=== PATIENT | female | born 1965 | race Caucasian/White ===

== ENCOUNTER 2020-05-05 16:27 | Outpatient (REF) | payer OTHER, SELFPAY ==
--- NOTE | 2020-05-05 16:32 | MM_ITS ---
EXAMINATION: MM SCREENING DIGITAL BREAST TOMOSYNTHESIS, BILATERAL CLINICAL INFORMATION: Screening. Asymptomatic. The lifetime risk of breast cancer based on the Tyrer-Cuzick Model is 9%. COMPARISON: Mammography: 11/26/2018, 10/17/2017, 10/15/2016 TECHNIQUE: Digital breast tomosynthesis is performed in both the craniocaudal and mediolateral oblique views along with computer-aided detection (CAD). Synthesized 2D images are generated from the tomosynthesis. FINDINGS: The breasts are heterogeneously dense, which may obscure small masses (ACR BI-RADS breast composition Category c). There are no significant masses, abnormal calcifications, or other abnormalities. Parenchymal pattern is similar to prior studies. The axilla and skin contours are unremarkable. MM/MM tomosynthesis screening BI IMPRESSION: No mammographic evidence of malignancy. ASSESSMENT: BI-RADS 1: Negative RECOMMENDATION: Routine annual mammography screening. This patient's information was entered into a reminder system with a target due date for their next mammogram.
== END 2020-05-05 16:28 | disposition home or self-care (01) ==
LOC: HO.MAMMO 16:27
PROVIDERS: PCP Internal Medicine; Visit Provider Internal Medicine
DX: Z12.31 Encounter for screening mammogram for malignant neoplasm of breast (principal)
CPT/HCPCS: 77063; 77067

== ENCOUNTER 2020-07-14 14:26 | Outpatient (REF) | payer OTHER, SELFPAY ==
[2020-07-14 15:14] LABS: Influenza A PCR NEGATIVE (Negative); Influenza B PCR NEGATIVE (Negative); Resp Syncy Virus RNA Qual PCR NEGATIVE (Negative); SARS COV2 PCR INHOUSE NEGATIVE (Negative)
== END 2020-07-14 14:27 | disposition home or self-care (01) ==
LOC: HO.LNP 14:26
PROVIDERS: Visit Provider Internal Medicine
DX: Z20.822 Contact with and (suspected) exposure to COVID-19 (principal)
CPT/HCPCS: 0241U

== ENCOUNTER 2020-12-11 06:41 | Outpatient (REF) | payer OTHER, SELFPAY ==
[2020-12-11 07:28] LABS: MANUAL DIFF FLAG NO
[2020-12-11 07:33] LABS: Eosinophils Absolute Auto 0.3 X10*3/uL (0.0-0.4); Eosinophils Percent Auto 8.5 % (0-4); Hematocrit 40.9 % (37-47); Hemoglobin 13.1 g/dl (12.0-16.0); Lymphocytes Absolute Auto 1.3 X10*3/uL (1.2-4.9); Lymphocytes Percent Auto 41.2 % (20-40); Mean Corpuscular Hemoglobin 30.2 pg (27.0-33.0); Mean Corpuscular Volume 94.2 fL (80-98); Mean Platelet Volume 10.2 fL (9.4-12.3); Monocytes Absolute Auto 0.3 X10*3/uL (0.1-1.2); Monocytes Percent Auto 9.5 % (2-11); Neutrophils Absolute Auto 1.2 X10*3/uL (2.0-8.3); Neutrophils Percent Auto 39.8 % (45-73); Platelet Count 212 X10*3/uL (160-400); Red Blood Count 4.34 X10*6/uL (4.20-5.50); Red Cell Distribution Width 12.2 % (11.0-16.0); White Blood Count 3.1 X10*3/uL (4.8-10.8)
[2020-12-11 07:59] LABS: Alanine Aminotransferase 17 U/L (0-31); Albumin Level 4.1 g/dL (3.5-5.0); Alkaline Phosphatase 41 U/L (39-117); Anion Gap 10 (12-20); Aspartate Amino Transferase 21 U/L (5-31); Bilirubin Total 0.5 mg/dL (0.0-1.0); Blood Urea Nitrogen 15 mg/dL (9-16); Calcium 9.3 mg/dL (8.4-10.2); Carbon Dioxide 29 mmol/L (22-29); Chloride 108 mmol/L (96-108); Cholesterol 199 mg/dL; Estimated Glomerular Filt Rate > 60; Glucose Fasting 97 mg/dL (60-99); HDL Cholesterol 76 mg/dL; LDL Cholesterol Calculated 113 mg/dl; Potassium 4.6 mmol/L (3.3-5.1); Sodium 142 mmol/L (135-145); Total Protein 6.5 g/dL (6.5-8.0); Triglycerides 54 mg/dL
== END 2020-12-11 06:42 | disposition home or self-care (01) ==
LOC: HO.LAB 06:41
PROVIDERS: PCP Internal Medicine; Visit Provider Internal Medicine
DX: Z00.00 Encounter for general adult medical examination without abnormal findings (principal)
CPT/HCPCS: 36415; 80053; 80061; 85025

== ENCOUNTER 2021-03-22 14:30 | Outpatient (REF) | payer OTHER, SELFPAY ==
[2021-03-22 15:39] LABS: Influenza A PCR NEGATIVE (Negative); Influenza B PCR NEGATIVE (Negative); Resp Syncy Virus RNA Qual PCR NEGATIVE (Negative); SARS COV2 PCR INHOUSE NEGATIVE (Negative)
== END 2021-03-22 14:31 | disposition home or self-care (01) ==
LOC: HO.LNP 14:30
PROVIDERS: Visit Provider Internal Medicine
DX: Z20.822 Contact with and (suspected) exposure to COVID-19 (principal)
CPT/HCPCS: 0241U

== ENCOUNTER 2021-04-28 08:26 | Outpatient (REF) | payer OTHER, SELFPAY | END 2021-04-28 08:27 | disposition home or self-care (01) | LOC: HO.HMGCLDS 08:26 | PROVIDERS: Visit Provider Internal Medicine | DX: Z20.822 Contact with and (suspected) exposure to COVID-19 (principal) | CPT/HCPCS: C9803; U0003; U0005 ==

== ENCOUNTER 2021-05-03 14:25 | Outpatient (REF) | payer OTHER, SELFPAY ==
[2021-05-03 15:13] LABS: Influenza A PCR NEGATIVE (Negative); Influenza B PCR NEGATIVE (Negative); Resp Syncy Virus RNA Qual PCR NEGATIVE (Negative); SARS COV2 PCR INHOUSE POSITIVE (Negative)
== END 2021-05-03 14:26 | disposition home or self-care (01) ==
LOC: HO.LNP 14:25
PROVIDERS: Visit Provider Physician Assistant
DX: Z20.822 Contact with and (suspected) exposure to COVID-19 (principal); B34.9 Viral infection, unspecified
CPT/HCPCS: 0241U

== ENCOUNTER 2021-05-12 10:42 | Outpatient (REF) | payer OTHER, SELFPAY ==
--- NOTE | ~2021-05-12 | XR_ITS ---
EXAMINATION: XR CHEST CLINICAL INFORMATION: Tightness, question pneumothorax COMPARISON: None TECHNIQUE: 2 views of the chest were obtained. FINDINGS: Normal cardiomediastinal silhouette. Pleural parenchymal scarring in the lung apices. No consolidation. No pneumothorax. No pleural effusion. No acute osseous abnormalities. XR/XR chest 2V IMPRESSION: No acute cardiopulmonary process.
--- NOTE | ~2021-05-12 | FL_ITS ---
EXAMINATION: XR FLUOROSCOPY UPPER GI WITH AIR CLINICAL INFORMATION: Gastroesophageal reflux disease COMPARISON: None TECHNIQUE: Upper GI was performed using thin and thick barium and effervescent granules FINDINGS: Esophageal motility is normal. No hernia is seen. There is severe gastroesophageal reflux. The stomach and duodenum are normal-appearing. No fold thickening, mass, ulcer or stricture is seen. FLUOROSCOPY TIME: 0.8 DOSE AREA PRODUCT: 3.4 garner per centimeter squared. 20 saved fluoroscopic images. FL/FL upper GI w air IMPRESSION: Severe gastroesophageal reflux.
== END 2021-05-12 10:43 | disposition home or self-care (01) ==
LOC: HO.XRAY 10:42
PROVIDERS: PCP Internal Medicine; Visit Provider Internal Medicine
DX: R07.89 Other chest pain (principal); K21.9 Gastro-esophageal reflux disease without esophagitis
CPT/HCPCS: 71046; 74246

== ENCOUNTER 2021-08-07 10:01 | Outpatient (REF) | payer OTHER, SELFPAY ==
--- NOTE | ~2021-08-07 | MM_ITS ---
EXAMINATION: MM SCREENING DIGITAL BREAST TOMOSYNTHESIS, BILATERAL CLINICAL INFORMATION: Screening. Asymptomatic. The lifetime risk of breast cancer based on the Tyrer-Cuzick Model is 7%. COMPARISON: Mammography: 05/05/2020, 11/26/2018, 10/17/2017 TECHNIQUE: Digital breast tomosynthesis is performed in both the craniocaudal and mediolateral oblique views along with computer-aided detection (CAD). Synthesized 2D images are generated from the tomosynthesis. FINDINGS: The breasts are heterogeneously dense, which may obscure small masses (ACR BI-RADS breast composition Category c). Breast tissue composition borders on average fibroglandular. There are no significant masses, abnormal calcifications, or other abnormalities. There is no developing density or architectural abnormality or interval changes. The skin contours are smooth. MM/MM tomosynthesis screening BI IMPRESSION: No mammographic evidence of malignancy. ASSESSMENT: BI-RADS 1: Negative RECOMMENDATION: Routine annual mammography screening. This patient's information was entered into a reminder system with a target due date for their next mammogram.
== END 2021-08-07 10:02 | disposition home or self-care (01) ==
LOC: HO.MAMMO 10:01
PROVIDERS: PCP Internal Medicine; Visit Provider Internal Medicine
DX: Z12.31 Encounter for screening mammogram for malignant neoplasm of breast (principal)
CPT/HCPCS: 77063; 77067

== ENCOUNTER 2021-09-23 13:00 | Outpatient (RCR) | payer OTHER, SELFPAY | END 2021-10-26 08:47 | disposition home or self-care (01) | LOC: HO.PTCHIC 13:00 | PROVIDERS: PCP Internal Medicine; Visit Provider Podiatrist | DX: M72.2 Plantar fascial fibromatosis (principal) | CPT/HCPCS: 97035; 97110; 97140; 97161 ==

== ENCOUNTER 2021-11-19 10:05 | Day surgery (SDC) | payer OTHER, SELFPAY ==
[2021-11-15 13:49] VITALS: BMI 25.9
--- NOTE | 2021-11-18 13:40 | HO.ANESPROP2 ---
Documented by User: Светлана Martinez NP 11/18/21 13:40 HPI - Anesthesia Eval Consult details Narrative: 56yo F for Upper Endoscopy [facility] Past Medical History Medical History (Updated 11/15/21 @ 13:45 by Harmony Headley RN) Depression Surgical History Surgical History (Updated 11/15/21 @ 13:45 by Harmony Headley RN) H/O colonoscopy Hx of tubal ligation Social History Social History (Updated 11/15/21 @ 13:45 by Harmony Headley RN) Patient Tobacco Use Status: Former Tobacco user Quit Date: >10 yrs ago Tobacco use type: Cigarette Are you DNR?: No Advance Directives: No Advance Directives Information Provided: Yes Meds Allergies Allergy/AdvReac Type Severity Reaction Status Date / Time No Known Allergies Allergy Verified 05/03/21 10:30 [No Known Allergies*] Home Medications Medication Instructions Recorded Confirmed Last Taken Type citalopram 20 mg tablet 1 tab PO DAILY 11/15/21 11/15/21 Unknown History omeprazole 20 mg capsule,delayed 20 mg PO DAILY 11/15/21 11/15/21 11/19/21 History release Vitamin D3 11/19/21 11/19/21 Unknown History loratadine 10 mg tablet (Claritin) PO 11/19/21 Unknown History Exam Exam Date and Time: November 18, 2021 1340 Height,Weight and Vital Signs: Height 5 ft 5.5 in Weight 71.668 kg Assessment and Plan Assessment Anesthesia Assessment: Chart Reviewed Documented by User: Chilo Cooper MD 11/19/21 12:07 HPI - Anesthesia Eval Consult details Narrative: 56yo F for Upper Endoscopy h/o Cardiomyopathy during . Current functional status greater than 4 METS [facility] Past Medical History Medical History (Updated 11/15/21 @ 13:45 by Harmony Headley RN) Depression Functional capacity: uses cane/walker Family History Family history of problems with anesthesia: No Surgical History Surgical History (Updated 11/15/21 @ 13:45 by Harmony Headley RN) H/O colonoscopy Hx of tubal ligation History of Problems with Anesthesia: No Social History Social History (Updated 11/15/21 @ 13:45 by Harmony Headley RN) Patient Tobacco Use Status: Former Tobacco user Quit Date: >10 yrs ago Tobacco use type: Cigarette Are you DNR?: No Advance Directives: No Advance Directives Information Provided: Yes Meds Allergies Allergy/AdvReac Type Severity Reaction Status Date / Time No Known Allergies Allergy Verified 05/03/21 10:30 [No Known Allergies*] Home Medications Medication Instructions Recorded Confirmed Last Taken Type citalopram 20 mg tablet 1 tab PO DAILY 11/15/21 11/15/21 Unknown History omeprazole 20 mg capsule,delayed 20 mg PO DAILY 11/15/21 11/15/21 11/19/21 History release Vitamin D3 11/19/21 11/19/21 Unknown History loratadine 10 mg tablet (Claritin) PO 11/19/21 Unknown History Exam Airway Mallampati Class: III TM Dist: >3cm Neck ROM: Full Loose/Missing/Broken Teeth: Yes (Chipped tooth front upper , bridge in place ) Heart: S1,S2 Lungs: b/l breath sounds Assessment and Plan Assessment Anesthesia Assessment: Anesthesia Plan Discussed Final Anesthetic Review Family History of Problems with Anesthesia: No History of Problems with Anesthesia: No NPO: Yes ASA Class: II Final Preanesthetic Review: Meds/Allgs Chart Reviewed, Consent Obtained/Reviewed and Anes Risks/Benef Reviewed Patient Risk: Intermediate Procedure Risk: Intermediate Anesthetic Plan Anesthetic Plan: MAC: Disposition: Standard PACU
[2021-11-19 10:14] VITALS: BP 108/69; PULSE 73; RESP 8; TEMP 36.1; O2SAT 97
[2021-11-19] MEDS: Lactated Ringers 1,000 ML 100 ML IVCONT (10:27)
--- NOTE | 2021-11-19 11:53 | PM.OP ---
Brief Operative Note Date of Service: 11/19/21 Pre-op diagnosis: GERD Post-op diagnosis: other (Hiatal hernia) Procedure: EGD with biopsies Surgeon: Ponce Fox Anesthesia: MAC Was an Anglesmith Helper used for this Procedure?: No Estimated blood loss (mL): 2.0 Pathology: other (A. EG Junction at 35cm) Condition: stable Disposition: PACU
[2021-11-19 11:55] VITALS: BP 99/57; PULSE 57; RESP 15; TEMP 36.3; O2SAT 98
[2021-11-19 12:10] VITALS: BP 114/60; PULSE 56; RESP 16; TEMP 36.3; O2SAT 97
--- NOTE | 2021-11-19 22:56 | OP_ITS ---
SURGEON: Ponce Fox MD INDICATIONS: The patient presents for evaluation of gastroesophageal reflux. Full consent obtained from her for this, including risks of bleeding and perforation. PREOPERATIVE DIAGNOSIS: POSTOPERATIVE DIAGNOSIS: Gastroesophageal reflux, hiatal hernia. PROCEDURE PERFORMED: Esophagogastroduodenoscopy with biopsies. ESTIMATED BLOOD LOSS: COMPLICATIONS: ANESTHESIA: Monitored anesthesia care. ASSISTANTS: SPECIMENS: PREOPERATIVE DIAGNOSES: Gastroesophageal reflux. DESCRIPTION OF PROCEDURE: The patient was placed in the left lateral decubitus position. The Olympus video gastroscope was passed in the posterior oropharynx and upper esophagus under direct vision. The scope was passed slowly to the distal esophagus. The gastroesophageal junction appeared at 35 cm. There was a very minimal irregularity, but no evidence of esophagitis nor any definitive evidence of Ko's mucosa. The scope entered the stomach. There was a small hiatal hernia. The scope was advanced to the pylorus and the duodenum was cannulated to the descending portion. The duodenum including the bulb appeared normal without mass or ulceration. Scope was withdrawn back in the stomach. The gastric antrum and body appeared normal with good peristalsis. Scope was retroflexed visualizing the proximal stomach carefully, which appeared normal, without mass or ulceration. The scope was straightened and withdrawn back in the esophagus. Biopsies were obtained at the EG junction at 35 cm. Proximal to this the esophageal mucosa appeared normal. The scope was withdrawn from the patient. She tolerated the procedure well and was returned to recovery area in stable condition. IMPRESSION: Hiatal hernia, gastroesophageal reflux. PLAN: The results of the biopsy will be checked. She will continue her current regimen of daily omeprazole as she does report that is working well for the reflux. If things are stable, she will see me on a p.r.n. basis and have a repeat screening colonoscopy in 2024. MD RADHA Mooney/PENG / [phone] MTDValerie
== END 2021-11-19 12:30 | disposition home or self-care (01) ==
PROVIDERS: PCP Internal Medicine; Visit Provider Internal Medicine
PROC: 0DJ08ZZ Inspection of Upper Intestinal Tract, Via Natural or Artificial Opening Endoscopic (ICD-10-PCS; CPT 43235; principal; 2021-11-19 11:20)
DX: K21.9 Gastro-esophageal reflux disease without esophagitis (principal); K44.9 Diaphragmatic hernia without obstruction or gangrene; F32.9 Major depressive disorder, single episode, unspecified; Z79.899 Other long term (current) drug therapy; Z98.51 Tubal ligation status
CPT/HCPCS: 43239; 88305; J3010

== ENCOUNTER 2022-01-05 06:50 | Outpatient (REF) | payer OTHER, SELFPAY ==
[2022-01-05 06:55] LABS: MANUAL DIFF FLAG NO
[2022-01-05 07:32] LABS: Basophils Percent Auto 0.9 % (0-2); Eosinophils Absolute Auto 0.2 X10*3/uL (0.0-0.4); Eosinophils Percent Auto 3.5 % (0-4); Hematocrit 39.7 % (37.0-47.0); Imm Gran Abs Auto 0.01 X10*3/uL (0.00-0.03); Imm Gran Pct Auto 0.2 % (0.0-0.4); Lymphocytes Absolute Auto 1.8 X10*3/uL (1.2-4.9); Lymphocytes Percent Auto 38.8 % (20-40); Mean Corpuscular HGB Conc 32.7 g/dl (31.0-35.0); Mean Corpuscular Hemoglobin 31.1 pg (27.0-33.0); Mean Platelet Volume 10.1 fL (9.4-12.3); Monocytes Absolute Auto 0.4 X10*3/uL (0.1-1.2); Monocytes Percent Auto 9.3 % (2-11); Neutrophils Absolute Auto 2.1 x10*3/uL (2.0-8.3); Neutrophils Percent Auto 47.3 % (45-73); Platelet Count 228 X10*3/uL (160-400); Red Blood Count 4.18 X10*6/uL (4.20-5.50); Red Cell Distribution Width 12.9 % (11.0-16.0); White Blood Count 4.5 X10*3/uL (4.8-10.8)
[2022-01-05 08:04] LABS: Alanine Aminotransferase 28 U/L (0-31); Albumin Level 4.1 g/dL (3.5-5.0); Alkaline Phosphatase 55 U/L (39-117); Anion Gap 15 (12-20); Aspartate Amino Transferase 39 U/L (5-31); Blood Urea Nitrogen 21 mg/dL (9-16); Calcium 9.3 mg/dL (8.4-10.2); Carbon Dioxide 26 mmol/L (22-29); Chloride 107 mmol/L (96-108); Cholesterol 192 mg/dL; Estimated Glomerular Filt Rate > 60; Glucose Fasting 107 mg/dL (60-99); HDL Cholesterol 70 mg/dL; LDL Cholesterol Calculated 104 mg/dl; Potassium 4.5 mmol/L (3.3-5.1); Sodium 143 mmol/L (135-145); Total Protein 6.7 g/dL (6.5-8.0); Triglycerides 93 mg/dL
[2022-01-05 08:15] LABS: Bilirubin Total 0.2 mg/dL (0.0-1.0)
== END 2022-01-05 06:51 | disposition home or self-care (01) ==
LOC: HO.LAB 06:50
PROVIDERS: PCP Internal Medicine; Visit Provider Internal Medicine
DX: Z00.00 Encounter for general adult medical examination without abnormal findings (principal)
CPT/HCPCS: 36415; 80053; 80061; 85025

== ENCOUNTER 2022-12-06 16:52 | Outpatient (REF) | payer OTHER, SELFPAY ==
--- NOTE | ~2022-12-06 | XR_ITS ---
Examination: Soft tissue neck and chest. CLINICAL INDICATION: Rule out epiglottitis. Chest pain. COMPARISON: Chest 05/12/2021 TECHNIQUE: 2 views soft tissue neck and 2 views chest. FINDINGS: Soft tissue neck: There is normal patency of oropharyngeal and laryngeal airway. No soft tissue mass or calcification seen except for calcification of thyroid cartilage. The prevertebral soft tissues are normal. No gross bony abnormality seen. CHEST: Both lungs are fairly well-expanded and clear. The heart size and pulmonary vascularity is normal. There is mild dextroscoliosis. No gross bony abnormality seen. XR/XR soft tissue neck IMPRESSION: 1. Unremarkable soft tissue neck exam except for calcification of thyroid cartilage. 2. Unremarkable chest exam. Mild dextroscoliosis of lower dorsal spine.
--- NOTE | ~2022-12-06 | XR_ITS ---
Examination: Soft tissue neck and chest. CLINICAL INDICATION: Rule out epiglottitis. Chest pain. COMPARISON: Chest 05/12/2021 TECHNIQUE: 2 views soft tissue neck and 2 views chest. FINDINGS: Soft tissue neck: There is normal patency of oropharyngeal and laryngeal airway. No soft tissue mass or calcification seen except for calcification of thyroid cartilage. The prevertebral soft tissues are normal. No gross bony abnormality seen. CHEST: Both lungs are fairly well-expanded and clear. The heart size and pulmonary vascularity is normal. There is mild dextroscoliosis. No gross bony abnormality seen. XR/XR chest 2V IMPRESSION: 1. Unremarkable soft tissue neck exam except for calcification of thyroid cartilage. 2. Unremarkable chest exam. Mild dextroscoliosis of lower dorsal spine.
[2022-12-06 17:01] LABS: MANUAL DIFF FLAG NO
[2022-12-06 18:00] LABS: Basophils Percent Auto 0.5 % (0-2); Eosinophils Absolute Auto 0.1 X10*3/uL (0.0-0.4); Eosinophils Percent Auto 2.2 % (0-4); Hematocrit 42.9 % (37.0-47.0); Hemoglobin 13.9 g/dl (12.0-16.0); Imm Gran Abs Auto 0.01 X10*3/uL (0.00-0.03); Imm Gran Pct Auto 0.2 % (0.0-0.4); Lymphocytes Absolute Auto 1.6 X10*3/uL (1.2-4.9); Mean Corpuscular HGB Conc 32.4 g/dl (31.0-35.0); Mean Corpuscular Hemoglobin 30.6 pg (27.0-33.0); Mean Corpuscular Volume 94.5 fL (80.0-98.0); Mean Platelet Volume 10.1 fL (9.4-12.3); Monocytes Absolute Auto 0.5 X10*3/uL (0.1-1.2); Monocytes Percent Auto 9.2 % (2-11); Neutrophils Absolute Auto 3.3 x10*3/uL (2.0-8.3); Neutrophils Percent Auto 59.9 % (45-73); Platelet Count 218 X10*3/uL (160-400); Red Blood Count 4.54 X10*6/uL (4.20-5.50); Red Cell Distribution Width 12.6 % (11.0-16.0); White Blood Count 5.6 X10*3/uL (4.8-10.8)
[2022-12-06 18:40] LABS: Alanine Aminotransferase 32 U/L (0-31); Albumin Level 4.4 g/dL (3.5-5.0); Alkaline Phosphatase 79 U/L (39-117); Anion Gap 12 (12-20); Aspartate Amino Transferase 26 U/L (5-31); Bilirubin Total 0.6 mg/dL (0.0-1.0); Blood Urea Nitrogen 11 mg/dL (9-16); C Reactive Protein 1.74 mg/dL (< or = 0.50); Calcium 9.8 mg/dL (8.4-10.2); Carbon Dioxide 28 mmol/L (22-29); Chloride 104 mmol/L (96-108); Estimated Glomerular Filt Rate > 60; Glucose Random 119 mg/dL (60-115); Sodium 140 mmol/L (135-145); Total Protein 7.7 g/dL (6.5-8.0)
== END 2022-12-06 16:53 | disposition home or self-care (01) ==
LOC: HO.LAB 16:52
PROVIDERS: PCP Internal Medicine; Visit Provider Internal Medicine
DX: R05.9 Cough, unspecified (principal); R49.0 Dysphonia; K21.9 Gastro-esophageal reflux disease without esophagitis
CPT/HCPCS: 36415; 70360; 71046; 80053; 85025; 86140

== ENCOUNTER → 2022-12-23 07:58 | Outpatient (REF) | payer OTHER, SELFPAY ==
--- NOTE | 2022-12-23 08:02 | CA_ITS ---
Acquisition Time: 2022-12-23 08:03:57 Total Exercise Time: 00:10:01 Test Indications: CP Medications: SEE H Protocol: MARILIN Max HR: 160 BPM 98% of Pred: 162 BPM Max BP: 154/072 mmHG Max Work Load: 11.7 METS PT EXERCISED ON STD MARILIN PROTOCOL FOR 10 MIN INTO STAGE 4. MAX HR 157-96%MAX. NO CP OR SOB. NO ISCHENMIC CHANGES. NML STRESS TEST Referred By: Cedric Cohen Overread By: BRIE COHEN MD
== END ==
LOC: HO.CARD 07:58
PROVIDERS: PCP Internal Medicine; Visit Provider Internal Medicine
DX: R07.9 Chest pain, unspecified (principal)
CPT/HCPCS: 93017

== ENCOUNTER 2023-01-06 09:23 | Outpatient (REF) | payer OTHER, SELFPAY ==
--- NOTE | ~2023-01-06 | US_ITS ---
EXAMINATION: US ABDOMEN COMPLETE CLINICAL INFORMATION: Epigastric pain. COMPARISON: None available. TECHNIQUE: Real-time imaging of the abdominal viscera. FINDINGS: PANCREAS: Normal. ABDOMINAL AORTA: The proximal, mid, and distal segments are normal in caliber. INFERIOR VENA CAVA: Visualized portions are normal. LIVER: The liver is normal in size. The liver contour is normal. There is very mild increase in liver parenchymal echogenicity, consistent with hepatic steatosis. No focal hepatic lesion. There is no intrahepatic biliary duct dilatation seen. GALLBLADDER: Normal. The gallbladder is physiologically distended without evidence of stones, sludge, polyps, wall thickening or pericholecystic fluid. COMMON BILE DUCT: Normal in caliber measuring 0.3 cm in diameter. RIGHT KIDNEY: Normal. No hydronephrosis. No renal calculi or focal parenchymal lesions. The kidney measures 10.3 cm in maximum dimension. LEFT KIDNEY: Normal. No hydronephrosis. No renal calculi or focal parenchymal lesions. The kidney measures 10.2 cm in maximum dimension. SPLEEN: Normal. The spleen measures 9.0 cm in maximum dimension. FREE FLUID: None. US/US abdomen complete IMPRESSION: 1. There is very mild increase in hepatic echotexture, consistent with fatty infiltration or hepatocellular disease. Please correlate clinically. No focal hepatic mass or intrahepatic biliary dilatation is seen. 2. Otherwise, unremarkable examination.
== END 2023-01-06 09:24 | disposition home or self-care (01) ==
LOC: HO.US 09:23
PROVIDERS: Visit Provider Internal Medicine
DX: R10.13 Epigastric pain (principal)
CPT/HCPCS: 76700

== ENCOUNTER 2023-03-20 15:34 | Outpatient (REF) | payer OTHER, SELFPAY ==
--- NOTE | ~2023-03-20 | XR_ITS ---
EXAMINATION: XR TIBIA AND FIBULA, RIGHT CLINICAL INFORMATION: Right tibia injury. COMPARISON: None available. TECHNIQUE: AP and lateral views of the right tibia and fibula were obtained. FINDINGS: Bony alignment and mineralization are normal. The lateral, medial and patellofemoral joint space compartments are well-maintained. There is a small peripheral osteophyte at the upper articular surface of the patella. The ankle mortise is intact. No fracture, dislocation or right knee and coronal joint effusion is seen. Boehler's angle is normal. There is a large plantar calcaneal spur. There are degenerative changes of the dorsal midfoot. No focal soft tissue swelling, gas or foreign body is seen. XR/XR tibia fibula RT 2V IMPRESSION: 1. No fracture or dislocation is seen. 2. 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 3. A large plantar calcaneal spur is seen.
== END 2023-03-20 15:35 | disposition home or self-care (01) ==
LOC: HO.XRAY 15:34
PROVIDERS: PCP Internal Medicine; Visit Provider Internal Medicine
DX: S89.91XD Unspecified injury of right lower leg, subsequent encounter (principal)
CPT/HCPCS: 73590

== ENCOUNTER 2023-08-08 08:15 | Outpatient (REF) | payer OTHER, SELFPAY ==
--- NOTE | ~2023-08-08 | XR_ITS ---
EXAMINATION: XR SINUSES CLINICAL INFORMATION: Sinus pressure/pain. COMPARISON: 01/15/2020 TECHNIQUE: 4 views of the sinuses were obtained. FINDINGS: Paranasal sinuses are well aerated. No evidence of mucoperiosteal thickening or air-fluid levels. The facial bones have an intact appearance. No suspicious osseous lesions. No visible soft tissue swelling of the scalp or facial region. No radiopaque foreign body or soft tissue gas. XR/XR sinus <3V IMPRESSION: Paranasal sinuses have a normal radiographic appearance. There is no evidence of acute or chronic sinusitis.
== END 2023-08-08 08:16 | disposition home or self-care (01) ==
LOC: HO.XRAY 08:15
PROVIDERS: PCP Internal Medicine; Visit Provider Internal Medicine
DX: J32.9 Chronic sinusitis, unspecified (principal)
CPT/HCPCS: 70210

== ENCOUNTER 2023-08-18 10:09 | Outpatient (REF) | payer OTHER, SELFPAY | END 2023-08-18 10:10 | disposition home or self-care (01) | LOC: HO.MAMMO 10:09 | PROVIDERS: PCP Internal Medicine; Visit Provider Internal Medicine | DX: Z12.31 Encounter for screening mammogram for malignant neoplasm of breast (principal) | CPT/HCPCS: 77063; 77067 ==

== ENCOUNTER → 2023-08-18 10:15 | Outpatient (BNV) | payer OTHER, SELFPAY | PROVIDERS: PCP Internal Medicine; Visit Provider Radiology Diagnostic Radiology | DX: Z12.31 Encounter for screening mammogram for malignant neoplasm of breast (principal) | CPT/HCPCS: 77063; 77067 ==

== ENCOUNTER 2023-10-31 14:28 | Outpatient (REF) | payer OTHER, SELFPAY ==
[2023-10-31 14:44] LABS: MANUAL DIFF FLAG NO
[2023-10-31 14:53] LABS: Basophils Absolute Auto 0.1 X10*3/uL (0.0-0.2); Basophils Percent Auto 1.3 % (0-2); Eosinophils Absolute Auto 0.1 X10*3/uL (0.0-0.4); Eosinophils Percent Auto 2.7 % (0-4); Hematocrit 41.8 % (37.0-47.0); Hemoglobin 13.8 g/dl (12.0-16.0); Imm Gran Abs Auto 0.01 X10*3/uL (0.00-0.03); Imm Gran Pct Auto 0.2 % (0.0-0.4); Lymphocytes Absolute Auto 1.4 X10*3/uL (1.2-4.9); Lymphocytes Percent Auto 30.6 % (20-40); Mean Corpuscular Hemoglobin 31.1 pg (27.0-33.0); Mean Corpuscular Volume 94.1 fL (80.0-98.0); Mean Platelet Volume 9.5 fL (9.4-12.3); Monocytes Absolute Auto 0.3 X10*3/uL (0.1-1.2); Monocytes Percent Auto 6.9 % (2-11); Neutrophils Absolute Auto 2.6 x10*3/uL (2.0-8.3); Neutrophils Percent Auto 58.3 % (45-73); Platelet Count 204 X10*3/uL (160-400); Red Blood Count 4.44 X10*6/uL (4.20-5.50); Red Cell Distribution Width 12.5 % (11.0-16.0); White Blood Count 4.5 X10*3/uL (4.8-10.8)
[2023-10-31 15:16] LABS: Alanine Aminotransferase 17 U/L (0-31); Albumin Level 4.4 g/dL (3.5-5.0); Alkaline Phosphatase 54 U/L (39-117); Anion Gap 12 (12-20); Aspartate Amino Transferase 24 U/L (5-31); Bilirubin Total 0.4 mg/dL (0.0-1.0); Blood Urea Nitrogen 14 mg/dL (9-16); Calcium 9.6 mg/dL (8.4-10.2); Carbon Dioxide 27 mmol/L (22-29); Chloride 105 mmol/L (96-108); Estimated Glomerular Filt Rate > 60; Glucose Random 98 mg/dL (60-115); Potassium 4.2 mmol/L (3.3-5.1); Sodium 140 mmol/L (135-145); Total Protein 7.4 g/dL (6.5-8.0)
== END 2023-10-31 14:29 | disposition home or self-care (01) ==
LOC: HO.LAB 14:28
PROVIDERS: PCP Internal Medicine; Visit Provider Internal Medicine
DX: K21.9 Gastro-esophageal reflux disease without esophagitis (principal)
CPT/HCPCS: 36415; 80053; 85025

== ENCOUNTER 2024-11-22 14:47 | Outpatient (AMB) | payer OTHER, SELFPAY ==
--- OUTSIDE RECORDS SUMMARY | 2024-02-07 05:45 | XMS_ITS ---
Author Organization [facility] Address [address] [place] [address] Care Team Providers Care Ob/Gyn Doctor Name Role Phone Cedric Suh MD Primary Care Provider Unavaila ble Black, Tory Unavailable [phone] Yefri Womack [phone] Encounters Encounter Location Date Provider Diagnosis [address] [address] 02/07/2024 Yefri Womack Plan Of Treatment No Information Progress Notes * Liana BABB LDOB: (59 yo F)Acc No.[id number]:02/07/2024 Progress Note Patient: Liana JAMESON Provider: Iam Womack DPM :1965 A ge:58 Y S ex:Female Date:02/07/2024 Address:[address] [place] [address] Pcp:Cedric Suh MD Subjective: * Chief Complaints: [...] Womack DPM Date: 1 Generated for Jorden chappell/William/Jinnyitting on: 0 11/22/2024 02:49 PM EDT
--- NOTE | 2024-11-22 14:48 | MHC.PC.OV ---
Vital Signs 11/22/24 14:55 Height 5 ft 6 in Weight 151 lb BMI 24.4 BP 110/62 Blood Pressure Location Lt brachial Position Sitting Respiration 16 Pulse 65 Temp 97.1 F Temp Source Temporal Artery Scan Pulse Oximetry (%) 99 Oxygen Delivery Method Room Air Intake Visit Reasons: Annual - see comments Harness Cutter Required: No Accompanied by: Self / Same As Patient Allergies No Known Allergies (No Known Allergies*) Allergy (Verified 11/22/24 14:48) Tobacco use date assessed: 11/22/24 HPI HPI Comments History of Present Illness Details 59 year old female with a past medical history of depression, anxiety, allergic rhinitis, GERD presenting for annual exam Depression/anxiety-on citalopram GERD-On prn omeprazole Preventive: Due for mammo pap and colonoscopy ROS CONSTITUTIONAL: Denies weight loss, fever and chills. HEENT: Denies changes in vision and hearing. RESPIRATORY: Denies SOB and cough. CV: Denies palpitations and CP GI: Denies abdominal pain, nausea, vomiting and diarrhea. : Denies dysuria and urinary frequency. MSK: Denies new myalgia and joint pain. SKIN: Denies rash and pruritus. NEUROLOGICAL: Denies headache PSYCHIATRIC: Denies recent changes in mood. PHYSICAL EXAM: GENERAL: Alert and oriented x 3. NAD EYES: EOMI. Anicteric. HENT: Moist mucous membranes. No scleral icterus. No cervical lymphadenopathy. LUNGS: Clear to auscultation bilaterally. CARDIOVASCULAR: Regular rate and rhythm. No murmur. No JVD. ABDOMEN: Soft, non-tender +bs EXTREMITIES: No edema. Non-tender. SKIN: No rashes or lesions. Warm. NEUROLOGIC: No focal neurological deficits. CN II-XII grossly intact PSYCHIATRIC: Cooperative. Appropriate mood and affect [facility] Medical History Depression Surgical History H/O colonoscopy (~10/20/14) Hx of tubal ligation Social History Patient Tobacco Use Status: Former Tobacco user Tobacco use type: Cigarette e-Cigarette/Vaping Use: Never Used Questionnaire AUDIT C Alcohol Use Questionnaire (AUDIT-C) 1. How often do you have a drink containing alcohol?: 2-3 times a week 2. How many drinks containing alcohol do you have on a typical day when you are drinking?: 3 or 4 Total Score: 4 Physical exam (Primary Care) Vital Signs: Last Vital Signs Temp 97.1 F 11/22/24 14:55 Pulse 65 11/22/24 14:55 Resp 16 11/22/24 14:55 BP 110/62 11/22/24 14:55 Pulse Ox 99 11/22/24 14:55 Oxygen Delivery Method Room Air 11/22/24 14:55 BMI result Body Mass Index 24.4 Tobacco/Smoking Status: Tobacco use Status Tobacco use date assessed 11/22/24 11/22/24 14:59 Patient Tobacco Use Status Former Tobacco user 11/22/24 14:59 Tobacco use type Cigarette 11/22/24 14:59 e-Cigarette/Vaping Use Never Used 11/22/24 14:59 Coding Level of Care Code New Pt Prev Care 40-64y(47696) Diagnoses Physical exam Z00.00 Gastroesophageal reflux disease, unspecified whether esophagitis present K21.9 Esophagitis presence: esophagitis presence not specified Assessment & Plan Assessment & Plan (1) Physical exam: Code(s): Z00.00 - Encounter for general adult medical examination without abnormal findings (2) GERD (gastroesophageal reflux disease): Code(s): K21.9 - Gastro-esophageal reflux disease without esophagitis Category: Medical Qualifiers: Esophagitis presence: esophagitis presence not specified Qualified Code(s): K21.9 - Gastro-esophageal reflux disease without esophagitis Plan CPE Past medical, surgical, social reviewed Interval history reviewed. Mammo, bone density ordered Labs ordered Referral RADIO DISPATCHER, gastro Orders: Orders Complete Blood Count Auto Diff 11/22/24 F32.A - Depression, unspecified, K21.9 - Gastro-esophageal reflux disease without esophagitis, Z13.0 - Encounter for screening for diseases of the blood and blood-forming organs and certain disorders involving the immune mechanism, Z13.220 - Encounter for screening for lipoid disorders, Z13.228 - Encounter for screening for other metabolic disorders TSH reflex Free T4 11/22/24 F32.A - Depression, unspecified, K21.9 - Gastro-esophageal reflux disease without esophagitis, Z13.0 - Encounter for screening for diseases of the blood and blood-forming organs and certain disorders involving the immune mechanism, Z13.220 - Encounter for screening for lipoid disorders, Z13.228 - Encounter for screening for other metabolic disorders XR DEXA axial skeleton 11/22/24 E28.39 - Other primary ovarian failure MM tomosynthesis screening BI 11/22/24 Z12.31 - Encounter for screening mammogram for malignant neoplasm of breast Comprehensive Met. Panel 11/22/24 F32.A - Depression, unspecified, K21.9 - Gastro-esophageal reflux disease without esophagitis, Z13.0 - Encounter for screening for diseases of the blood and blood-forming organs and certain disorders involving the immune mechanism, Z13.220 - Encounter for screening for lipoid disorders, Z13.228 - Encounter for screening for other metabolic disorders Lipid Panel 11/22/24 F32.A - Depression, unspecified, K21.9 - Gastro-esophageal reflux disease without esophagitis, Z13.0 - Encounter for screening for diseases of the blood and blood-forming organs and certain disorders involving the immune mechanism, Z13.220 - Encounter for screening for lipoid disorders, Z13.228 - Encounter for screening for other metabolic disorders Vitamin D 25-OH (D2 and D3) 11/22/24 F32.A - Depression, unspecified, K21.9 - Gastro-esophageal reflux disease without esophagitis, Z13.0 - Encounter for screening for diseases of the blood and blood-forming organs and certain disorders involving the immune mechanism, Z13.220 - Encounter for screening for lipoid disorders, Z13.228 - Encounter for screening for other metabolic disorders Referrals Gastroenterology Referral Z12.11 - Encounter for screening for malignant neoplasm of colon ADJUNCT PHLEBOTOMY INSTRUCTOR Referral Z12.4 - Encounter for screening for malignant neoplasm of cervix Medications: Changed From citalopram 1 tab PO DAILY To citalopram 20 mg PO DAILY 90 tabs 3RF
--- OUTSIDE RECORDS SUMMARY | 2024-11-22 14:49 | XMS_ITS | Data Portability ---
Author Organization [place] [facility], [facility] Address [address] [place] [address] Care Team Providers Care Bath Attendant Name Role Phone JUAN COHEN Primary Care Provider Assessment Encounter Date Assessment Date Assessment LastModified by Organization Details LastModified Time 07/25/2023 07/25/2023 Reason for Visit: Two-months status post right elbow medial epicondylar debridement and tendon repair HPI: The patient is a 58-year-old female with a chronic history of medial epicondylitis and now 2 months status post right elbow open medial epicondylar debridement and common flexor origin tendon repair performed on 05/29/2023. Overall, she is doing extremely well. She denies any pain. She has been working on range of motion. Physical Examination: Height and weight as noted in chart. Constitutional: Patient pleasant, well appearing and in NAD. Mental status: Patient is alert and oriented x 4. No short-term memory deficits. Psychiatric: Mood and affect are appropriate. Respiratory: Non-labored breathing. Musculoskeletal: On examination of the right elbow, there is no effusion, erythema or ecchymosis. Range of motion from 0-135 . She has full pronosupination. No significant tenderness over the medial epicondyle. Her elbow is stable to varus and valgus stress. Impression and Plan: 58-year-old female with a chronic history of medial epicondylitis and now 2 months status post right elbow open medial epicondylar debridement and common flexor origin tendon repair performed on 05/29/2023. Overall, she is doing extremely well. She denies any pain. She has been working on range of motion. At this time, she can ease into some early eccentric strengthening exercises with very light weights such as a soup can. She may also commence some squeezing exercises using a squeeze ball. I want her to continue these light exercises over the next month and she may gradually increase to normal activities to tolerance after 3 months postop. We collectively decided to have her follow up on an as-needed basis. She is very happy with her elbow. All questions and concerns addressed willy Not available 07/25/2023 14:27:45 Plan of Treatment Reminders Order Date Submit Date Provider Last Modified By Organization Details Last Modified Time Details Appointments None record ed. Lab None record ed. Referral None record ed. Procedures None record ed. Surgeries None record ed. Imaging XR, knee, 4 or more view - 4v L knee. room 213 025 06/25/19 SHASHANK [facility] Office, [address], [address], [place], [address], 5 15:20:47 XR, knee, 4 or more view - rm 216 024 11/23/19 rm[facility]enger [facility], [address], [address], [place], [address], 4 07:58:50 Medication Orders None record ed. Patient TargetsNo targets recorded. Patient InstructionsNo instructions recorded. Reason for Referral None Reported. Results Created Date Observation Date Name Description Value Unit Range Abnormal Flag Note LastModifiedBy Organization Detail LastModifiedTime 11/23/19 24 11/23/2023 XR, knee, 4 or more view http:/ [email or web address] ?Encry pted=s hAaTro YD8dLq bEUv6g %2BXZw aYqtaq 0bqfl% 2Fg9IQ a4ajBk vP9nXo QUaueC m3YtLR FvZlgJ JJ8mAn HZtai3 3d8186 AC0Koa nWMWaH eUC8mr 84%3D INTERFACE [facility] [address], [place], [address], 11/23/2023 09:01:06 11/23/19 24 11/23/2023 XR, knee, 4 or more view [email or web address]:/ [email or web address] ?Encry pted=s hAaTro YD8dLq bEUv6g %2BXZw aYqtaq 0bqfl% 2Fg9IQ a4ajBk vP9nXo QUaueC m3YtLR FvZl[address] 1f2512 AC0Koa nWMWaH eUC8mr 84%3D INTERFACE [facility] [address], [place], [address], 11/23/2023 09:01:08 12/29/19 24 04/06/2023 imagi ng/di agnos tic resul t No observ ation record ed. [email or web address] Not Available 12/01 21:28:55 12/29/19 24 06/23/2021 imagi ng/di agnos tic resul t No observ ation record ed. [email or web address] Not Available 12/01 21:29:28 12/29/19 24 10/01/2019 imagi ng/di agnos tic resul t No observ ation record ed. [email or web address] Not Available 12/01 21:29:39 12/29/19 24 10/08/2019 imagi ng/di agnos tic resul t No observ ation record ed. [email or web address] Not Available 12/01 21:29:40 06/25/19 25 06/25/2024 XR, knee, 4 or more view http:/ [email or web address] ?Encry pted=s hAaTro YD8dLq bEUv6g %2BXZw aYqtaq 0bqfl% 2Fg9IQ a4ajBk vP9nXo QUaueC m3YtLR FvZlgJ JJ8mAn HZtai3 6u7583 AC0Kqb X6MWKC gKiQtr MwF INTERFACE [facility] [address], [place], [address], 06/25/2024 15:20:48 06/25/19 25 06/25/2024 XR, knee, 4 or more view http:/ [email or web address] ?Encry pted=s hAaTro YD8dLq bEUv6g %2BXZw aYqtaq 0bqfl% 2Fg9IQ a4ajBk vP9nXo QUaueC m3YtLR FvZlgJ JJ8mAn HZtai3 1t2135 AC0Kqb X6MWKC gKiQtr MwF INTERFACE [facility] [address] [facility] [address], [place], [address], 06/25/2024 15:20:51 Result Notes Documentation Provider Name and Address Organization Details Recorded Time Xr, Knee, 4 Or More View : [email or web address]? Encrypted=pgKxRuiYP9mBxfX Uv6g%2NBXbfZkdvx1sakn%2Fg 4TVd8lbEvsD7cKbRHjfrHh2Ga VFQpAldPDB4vQwZFfpj09v288 0TM0PfgqNXRjNuMC8as47%3D Not Available [facility] 11/23/2023 09:0 1:07 Xr, Knee, 4 Or More View : [email or web address]? Encrypted=gqDhBpdDG0lKheP Uv6g%6QUFmbDdmtb0rltl%2Fg 5LHj7qfEroE3aMfJQfwuEw2Zw ONRgByjJYL0vNtNTxga71y760 0XI3XxpbYETuNsWM2mz24%3D Not Available [facility] 11/23/2023 09:0 1:09 Xr, Knee, 4 Or More View : [email or web address] Encrypted=koPhNibQV6hPrrV Uv6g%5YUJjwHodym8kute%2Fg 0AIz8mrQgyC8aJoDXhkuFp3Cy EDLpQksMTJ0jGeUTlxb95c159 2RZ5LdcO9PDMCsWvJymTsX Not Available [facility] 06/25/2024 15:20: 49 Xr, Knee, 4 Or More View : [email or web address] Encrypted=zmVnNjpGY5aBumD Uv6g%0RIGmvVyujk2kwwx%2Fg 1JWw6sxKirT5qNxOCppdDb8Cj BAEbOtjPCC3iXdSYhor79g411 6TT3XqyK9KKNYkYnKpcNiH Not Available [facility] 06/25/2024 15:20: 52 Problems Name Problem SNOMED Code Status Onset Date Resolution Date Notes Provider Name and Address Organization Details Recorded Time No complaints 725101566 Active Status : 'I'; Not Available [facility] 09:25:26 Chondromal acia of right patella 8729189809851 9108 Active 2023 Patience Anguiano PA-C [address], [place], [address] , [facility] 08:42:46 Problem Notes None recorded. Procedures Surgical History Date Name Laterality Status Provider Name and Address Organization Details Recorded Time 06/25/2024 Sports Knee 4&1 completed Paul Mcdonald PA-C [address], [place], [address], [facility] 06/25/2024 15:56:58 11/23/2023 Sports Knee 4&1 completed Patience Anguiano PA-C [address], [place], [address], [facility] 11/22/2023 13:04:40 Imaging Results None recorded. Procedure Notes None recorded. Medical Equipment None Reported. Allergies Allergen ID Allergen Name Allergen Category Reaction Reaction Severity Criticality Documentation Date Start Date Code Code System Note Provider Name and Address Organization Details Recorded Time 326572 adhesive tape environme nt,medica tion Not available Not available Not available 11/22/2023 [address] [facility] Patience Kumar i, PA-C [address], [place], [address], [facility] 13:04:16 Medications Name Sig Start Date Stop Date Status Note LastModified by Organization Details LastModified Time cefuroxime axetil 250 mg tablet TAKE 1 TABLET BY MOUTH TWICE A DAY FOR 10 DAYS 11/20 completed Not Available Not Available Not Available azithromyci n 250 mg tablet TAKE 1 TABLET BY MOUTH DAILY FOR 6 DAYS. 11/20 completed Not Available Not Available Not Available citalopram 10 mg tablet TAKE 1 TABLET BY MOUTH EVERY DAY active Not Available Not Available No t Available naltrexone 50 mg tablet TAKE 1 TABLET BY MOUTH EVERY DAY active Not Available Not Available No t Available ondansetron HCl 4 mg tablet TAKE 1 TABLET BY MOUTH EVERY 6 TO 8 HOURS NEEDED FOR NAUSEA DIRECTED 11/20 completed Not Available Not Available Not Available prednisone 20 mg tablet TAKE 1 TABLET BY MOUTH EVERY DAY 11/20 completed Not Available Not Available Not Available citalopram 20 mg tablet TAKE 1 TABLET BY MOUTH EVERY DAY 11/22 completed Not Available Not Available Not Available omeprazole 20 mg capsule,del ayed release TAKE 1 CAPSULE BY MOUTH EVERY DAY active Not Available Not Available No t Available naproxen 500 mg tablet TAKE 1 TABLET BY MOUTH TWICE A DAY FOR 5 DAYS 11/20 completed Not Available Not Available Not Available oxycodone 5 mg tablet PLEASE SEE ATTACHED FOR DETAILED DIRECTION S 11/20 completed Not Available Not Available Not Available oxycodone HCl-oxycodo ne-ASA as directed 1 tab po q 4-6 hrs prn pain. DO NOT DRIVE WHILE TAKING THIS MEDICATIO N 11/20 completed Statu s: 'Curr ent'; Not Available Not Available Not Available Vitals Date Recorded Body height Body mass index (BMI) Body weight Provider Name and Address Organization Details Last Updated DateTime 06/25/2024 167.64 cm 25.8 kg/m2 49805.78 g Kanika Musa [place] [facility] 06/25/2024 14:59:58 Date Recorded Body height Body mass index (BMI) Body weight Provider Name and Address Organization Details Last Updated DateTime 07/25/2023 167.64 cm 25.3 kg/m2 20909 g OBED STROUD [facility] 07/25/2023 13:50:22 Date Recorded Body height Body mass index (BMI) Body weight Provider Name and Address Organization Details Last Updated DateTime 11/23/2023 167.64 cm 25.8 kg/m2 64055.78 g Patience Anguiano PA-C [address], [place], [address], [facility] 11/23/2023 08:54:19 Social History Question Answer Notes LastModified by Organizat ion Details LastModified Time Tobacco Smoking Status Former Smoker Patience Anguiano PA-C [address], [place], [address], [facility] 11/23/2023 08:54:58 When Did You Quit Smoking? 16+yearssinc elastcigaret te Information not available 11/23/2023 Which Of Your Hands Is Dominant? Right Information not available 11/22/2023 What Is Your Relationship Status? Information not available 11/23/2023 Sex: Unknown Functional Status Question Answer Note LastModified by Organizat ion Details LastModified Time Do you use any illicit or recreational drugs? No Information not available 11/23/2023 Do you or have you ever used any other forms of tobacco or nicotine? No Information not available 11/23/2023 What is your level of alcohol consumption? None Information not available 11/23/2023 Mental Status None recorded. Family History Nothing Reported. Medical History Condition Response Anxiety/Depression N Heart Trouble Y Acid Reflux (GERD) N Allergies/Hayfever N Gynecological HistoryNo gynecological history recorded. Obstetrics History GPAL:G 0 P 0 0 0 0 Past Encounters Encounter ID Performer Location Encounter Start Date Encounter Closed Date Diagnosis/Indication Diagnosis SNOMED-CT Code Diagnosis ICD10 Code Diagnosis Note [id number] MD [facility] [address] [place] [address] 07/25/2023 13:39:20 08/16/2023 05:42:45 Medial epicondylitis of right elbow joint 1220993394 28026 M77.01 Postoperative care 99133 9007 Z48.89 [id number] Patience Anguiano PA-C [facility] [address] [place] [address] 11/23/2023 08:42:52 12/13/2023 07:58:50 Chondromalacia of right patella 1723458611 0511983 M22.41 [id number] Paul Mcdonald PA-C [facility] [address] [place] [address] 06/25/2024 14:46:16 07/08/2024 12:58:42 Pain of left knee region 5092625280 92196 M25.562 Osteoarthr itis of left knee joint 1547630113 77660 M17.12 Health Concerns Section Related Observation LastModified by Organization Detai ls LastModified Time None Recorded Concern Status LastModified by Organization Details LastModified Time None Recorded Advance Directives Directive None Recorded Payers Insurance Date Sequence Insurance Name Policy Number Policy Calvert Covered Member ID Calvert Member ID Guarantor Name 11/07/2024 1 [facility] [id number] Liana Babb [id number] Liana Babb Notes Date Note Type Note Provider Name and Address Organization Details Recorded Time 11/23/2023 text/html I am seeing the patient today under the supervision of Dr. Lipscomb who was available but who did not see the patient. HPI: 58-year-old female patient presents today for right knee pain that began about 8 weeks ago after a long bike ride. Localizes pain to the anterior medial aspect with swelling. Pain is exacerbated by stairs, long bike riding, sitting, at night and prolonged walking. She has tried Voltaren and ice with minimal relief. MRI 2020 right knee demonstrated mucoid degeneration of the body and posterior horn of the medial meniscus without tear. She also has severe chondral thinning of the median ridge and medial patellar facet with mild quadriceps tendinopathy. Cortisone has provided good relief in the past, last injection in 2021. Past family, social history and review of systems has been reviewed, updated and is located in the patient s chart. X-RAYS: 4v X-rays of the Right knee were ordered, obtained and reviewed today at [facility] demonstrate moderate patellofemoral space narrowing with lateral facet wear, worsened from x-rays in 2019. Lateral and medial compartment space well preserved. IMPRESSION: Right knee patellofemoral chondromalacia, mucoid degeneration medial meniscus PLAN: Findings reviewed. Discussed conservative treatment as an appropriate initial option. She elected to proceed with right knee cortisone injection today. Discussed gradual return to bike riding over the next few weeks. Discussed trialing an over the counter knee sleeve, glucosamine chondroitin. Patient avoids oral anti-inflammatories. Follow up in 3 months for recheck. Medial history reviewed and updated in the chart today. All of her concerns are addressed today and she understands and agrees with the plan. Speech recognition kaiako kohanga reo software was used to create portions of this document. An attempt at proofreading has been made to minimize errors. Please call for corrections. Patience Anguiano PA-C [address] [place] [address] [address], [place], [address], [facility] - [facility] 11/23/2023 09:30:39 06/25/2024 text/html I am seeing the patient today under the supervision of Dr. Blake who was available but who did not see the patient.HPI: Liana presents today for examination of her left knee. She is a pleasant 59-year-old woman who is known to have some mild arthritis to the right knee treated with an injection last year doing well. Experiencing some discomfort now through the left knee. She is experiencing some pressure in the back of the knee similar to a Stacy cyst-type symptom. She denies any trauma or injury. She is expected to leave for vacation and wishes to need to be as comfortable as possible.Past family, medical, social history and review of systems has been reviewed, updated and is located in the patient s chart.PHYSICAL EXAMINATION: The patient is well appearing and in no apparent distress. Alert and oriented x3. Gait is symmetric.Right knee ROM is full, stability intact both anterior, posterior, and varus/valgus stress at both 0 and 30 degrees of flexion. No meniscal tenderness. Negative Ross's maneuver. No crepitus,no effusion, 5/5 strength.Left knee ROM is full, negative Artie no laxity to varus/valgus stress at both 0 and 30 degrees of flexion. Mild lateral joint line tenderness. Equivocal Ross's maneuver. No crepitus, no effusion, 5/5 strength.Peripheral, vascular, lymphatic examination, skin, neurological, coordination, reflexes, sensation are within normal limits.X-RAY REPORT: X-rays were ordered, obtained and reviewed today at [facility]. Radiographs demonstrate mild degenerative changes seen tricompartmental E.IMPRESSION: Left knee mild arthritis symptomatic with popliteal cystPLAN: Reviewed and discussed at length symptoms and appropriate care. At this time she elected to proceed with an injection. She will follow up with us as needed. Paul Mcdonald PA-C [address] [facility], [place], [address], [place] [facility] 06/25/2024 15:57:35 OBGyn Episode No OBEpisode recorded.
--- OUTSIDE RECORDS SUMMARY | 2024-11-22 14:50 | XMS_ITS | Patient Health Record ---
Author Organization [facility] Address [address] [place] [address] Care Team Providers Care Cable Maker Name Role Phone Vikash (RETIRED) Cedric PAULA Primary Care Provide r Ponce Hunt [phone] Allergies Allergen (clinical drug ingredient) Drug/Non Drug Allergy documented on EMR Reaction Allergy Type Onset Date Status seasonal (uncoded) Unknown Allergy A ctive Reason For Referral No Information Medications Medication SIG (Take, Route, Frequency, Duration) Notes Start Date End Date Status Omeprazole 20 MG TAKE 1 CAPSULE BY [facility] EVERY DAY Oral for 90 Active Vitamin D Active Allergy 24-HR Active Citalopram Hydrobromide 20 MG 1 tablet Orally Once a day Active Immunizations Vaccine Route Administration Date Status Comme nts Influenza Unknown 12/30/2020 Administered Social History Alcohol Screen Question Answer Notes Did you have a drink contain ing alcohol in the past year? Yes How often did you have a dri nk containing alcohol in the past year? 4 or more times a week (4 points) How many drinks did you have on a typical day when you were drinking in the past year? 1 or 2 drinks (0 point) How often did you have 6 or more drinks on one occasion in the past year? Never (0 point) Points 4 Interpretation Positive Section Notes: Nonsmoker; drinks 2-3 drinks 5x/week Nonsmoker; drinks 2-3 drinks 5x/week Nonsmoker; drinks 2-3 drinks 5x/week Nonsmoker; drinks 2-3 drinks 5x/week Problems Problem Type SNOMED Code ICD Code Onset Dates Problem Status W/U Status Risk Notes Problem 93109967 Epigastric pain (R10.13) Active confirmed Problem Screening for malignant neoplasm of colon (186830266) Encounter for screening for malignant neoplasm of colon (Z12.11) Active confirmed Problem 18817986 Other chest pain (R07.89) Active confirmed Problem 597508610 Gastroesophageal reflux disease without esophagitis (K21.9) Active confirmed Problem Gastroesophageal reflux disease (870029397) GERD (gastroesophageal reflux disease) (K21.9) Active confirmed Problem Gastroesophageal reflux disease (752949856) Esophageal reflux disease (K21.9) Active confirmed Plan Of Treatment Pending Test Test Name Order Date US abdomen complete 12/20/2022 Future Test Test Name Order Date COLONOSCOPY 09/02/2014 UPPER GI ENDOSCOPY 10/14/2021 Insurance Providers Payer Name Payer Address Payer Phone Subscriber Number Group Number Insured Name Patient Relationship to Insured Coverage Start Date Coverage End Date [facility] [address] [place] [address] [id number] SASKIA BOLAND Self - patient is the insured Medical (General) History Medical History History ICD Code Denies [place],DM,CVA,Lung disease,renal dise ase Depression Negative screening colonoscopy in 09/2014 Transient cardiomyopathy in the GERD-EGD 10/2021 with a small hiatal hernia but otherwise normal with biopsies negative for Ko's esophagus Surgical History Surgery Date(Month/Year) Tubal ligation 1998 right outer elbow
--- OUTSIDE RECORDS SUMMARY | 2024-11-22 14:50 | XMS_ITS | Clinical Summary ---
Author Organization [facility] Address [address] [place] [address] Care Team Providers Care Tissue Coordinator Name Role Phone Cedric Suh MD Primary Care Provider [phone] Allergies No known active allergies Medications Medication Sig Dispensed Refills Start Date End Date Status citalopram (CeleXA) 10 MG tablet Take 10 mg by mouth. 0 Active citalopram (CeleXA) 20 MG tablet Take 20 mg by mouth daily. 3 11/21/2018 Active Diclofenac Sodium 1 % GEL topical Place 1-2 g onto the skin. 0 12/07/2016 Active HYDROcodone-acetaminop hen (NORCO) 5-325 MG per tablet Take 1 tablet by mouth. 0 09/21/2017 Active FLUZONE QUADRIVALENT 0.5 ML injection 0 01/30/2019 Active triamcinolone acetonide (KENALOG) 10 MG/ML injection Inject 10 mg into the articular space. 0 01/16/2019 Active Active Problems Problem Noted Date Diagnosed Date Medial epicondylitis of left elbow 02/06/2019 Ulnar neuropathy at elbow of left upper extremit y 02/06/2019 Family History Medical History Relation Name Comments Heart disease Brother Cancer Father Heart disease Father Cancer Mother Relation Name Status Comments Brother Father Mother Social History Tobacco Use Types Packs/Day Years Used Date Smoking Tobacco: Never Smokeless Tobacco: Never Alcohol Use Standard Drinks/Week Comments Yes 0 (1 standard drink = 0.6 oz pur e alcohol) Sex and Gender Information Value Date Recorded Sex Assigned at Not on file Gender Identity Not on file Sexual Orientation Not on file Last Filed Vital Signs Vital Sign Reading Time Taken Comments Blood Pressure - - Pulse - - Temperature - - Respiratory Rate - - Oxygen Saturation - - Inhaled Oxygen Concentration - - Weight 68.9 kg (152 lb) 02/06/2019 11:16 AM EDT Height 167.6 cm (5' 6 ) 02/06/2019 11:16 AM EDT Body Mass Index 24.53 02/06/2019 11:16 AM EDT Plan of Treatment Health Maintenance Due Date Last Done Comments Hepatitis C Screening 1964 COVID-19 Vaccine (#1) 1964 Depression Screening 1976 Preventative Health Evaluation 1982 DTap / Tdap / Td (1 - Tdap) 1983 Cervical Cancer Screening (P ap Smear) 1985 Colon Cancer Screening (Colonoscopy) 2009 Breast Cancer Screening (Mammogram) 2014 Shingrix-Zoster Vaccine (1 of 2) 2014 Influenza Vaccine (#1) 2024 RSV Adult > 60+ Yrs or Pregn ant (1 - 1-dose 75+ series) 2039 Hepatitis B Vaccines Aged Out No long er eligible based on patient's age to complete this topic Pneumococcal Vaccine Aged Out No long er eligible based on patient's age to complete this topic RSV Ped < 20 months Aged Out No longe r eligible based on patient's age to complete this topic Care Teams Tissue Coordinator Relationship Specialty Start Date End Date Cedric Suh MD [address] [place] [address] Dr Paul [address] [place] [address] PCP - General Machine Veneer Repairer 01/17/19
[2024-11-22 14:55] VITALS: BP 110/62; PULSE 65; RESP 16; TEMP 36.2; O2SAT 99; BMI 24.4
== END 2024-11-22 15:27 | disposition home or self-care (01) ==
LOC: HO.HMCHD 14:47
PROVIDERS: PCP Internal Medicine; Visit Provider Internal Medicine
DX: Z00.00 Encounter for general adult medical examination without abnormal findings (principal); K21.9 Gastro-esophageal reflux disease without esophagitis

== ENCOUNTER 2025-01-23 10:29 | Outpatient (REF) | payer OTHER, SELFPAY ==
--- OUTSIDE RECORDS SUMMARY | 2023-09-22 05:00 | XMS_ITS ---
Author Organization [facility] Address [address] [place] [address] Care Team Providers Care Reporting Manager Name Role Phone Cedric Suh MD Primary Care Provider Unavaila Tory Peñaloza Unavailable [phone] Avery Encounters Encounter Location Date Provider Diagnosis [address] [address] 09/22/2023 Tory Arenas Plan Of Treatment No Information Progress Notes * Liana BABB LDOB: (59 yo F)Acc No.[id number]:09/22/2023 Progress Notes Patient: Liana JAMESON Provider: Omer Arenas DPM :1965 A ge:58 Y S ex:Female Date:09/22/2023 Address:[address] [place] [address] Pcp:Cedric Suh MD Subjective: * Chief Complaints: [...] 0 09/22/2023 Generated for Jorden chappell/William/Christina on: 0 01/23/2025 01:17 PM EDT
--- OUTSIDE RECORDS SUMMARY | 2024-02-07 05:45 | XMS_ITS ---
Author Organization [facility] Address [address] [place] [address] Care Team Providers Care Noodle Catalyst Maker Name Role Phone Cedric Suh MD Primary Care Provider Unavaila ble Black, Tory Unavailable [phone] Yefri Womack [phone] Encounters Encounter Location Date Provider Diagnosis [address] [address] 02/07/2024 Yefri Womack Plan Of Treatment No Information Progress Notes * Liana BABB LDOB: (59 yo F)Acc No.[id number]:02/07/2024 Progress Note Patient: Liana JAMESON Provider: Iam Womack DPM :1965 A ge:58 Y S ex:Female Date:02/07/2024 Address:[address] [place] [address] Pcp:Cedric Suh MD Subjective: * Chief Complaints: [...] 1 Generated for Jorden chappell/William/Jinnyitting on: 0 01/23/2025 01:17 PM EDT
--- NOTE | ~2025-01-23 | MM_ITS ---
EXAMINATION: DXA BONE DENSITY AXIAL HISTORY: E28.39 - Other primary ovarian failure TECHNIQUE: [employer] Dual energy absorptiometry (DEXA) of the lumbar spine, total left hip, and femoral neck was performed. COMPARISON: There are no prior studies for comparison. FINDINGS: The bone mineral density of the lumbar spine is 0.875 g/cm2, corresponding to a T-score of -2.5, and a Z-score of -1.4. This is indicative of osteoporosis. The bone mineral density of the left total hip is 0.885 g/cm2, corresponding to a T-score of -1.0, and a Z-score of -0.1. This is indicative of normal bone mineral density. The bone mineral density of the left femoral neck is 0.842 g/cm2, corresponding to a T-score of -1.4, and a Z-score of -0.2. This is indicative of osteopenia. MM/XR DEXA axial skeleton IMPRESSION: Based on bone mineral density, and according to World Health Organization (WHO) criteria, the diagnosis is consistent with osteoporosis. Statistically, 68% of repeat scans fall within 1 SD (+/- 0.010 g/cm2 for AP spine L1-L4) and 1 SD (+/- 0.012 g/cm2 for femur total) FRAX is a trademark of the [employer] [place] [employer] Metabolic Bone Disease, a World Health Organization (WHO) Collaborating Center. Electronically signed by: Ponce Contreras MD 01/23/2025 11:26 AM EDT
--- OUTSIDE RECORDS SUMMARY | 2025-01-23 13:17 | XMS_ITS | Clinical Summary ---
Author Organization [facility] Address [address] [place] [address] Care Team Providers Care Breaster Name Role Phone Cedric Suh MD Primary Care Provider [phone] Allergies No known active allergies Medications Medication [...] age to complete this topic Care Teams Breaster Relationship Specialty Start Date End Date Cedric Suh MD [address] [place] [address] Dr Paul [address] [place] [address] PCP - General Business Support Specialist 01/17/19
--- OUTSIDE RECORDS SUMMARY | 2025-01-23 13:17 | XMS_ITS | Patient Health Record ---
Author Organization [facility] Address [address] [place] [address] Care Team Providers Care Chemical Engineering Technician Name Role Phone Patience Jaramillo M.D. Primary Care Provider Unavail able Ponce Fox [phone] Allergies Allergen (clinical drug ingredient) Drug/Non Drug Allergy documented on EMR Reaction Allergy Type Onset Date Status seasonal (uncoded) Unknown Allergy A ctive Reason For Referral No Information Medications Medication SIG (Take, Route, Frequency, Duration) Notes Start Date End Date Status Omeprazole 20 MG TAKE 1 CAPSULE BY [facility] EVERY DAY Oral for 90 Active Vitamin [...] Problem Status W/U Status Risk Notes Problem 94901098 Epigastric pain (R10.13) Active confirmed Problem Screening for malignant neoplasm of colon (882976046) Encounter for screening for malignant neoplasm of colon (Z12.11) Active confirmed Problem 02350569 Other chest pain (R07.89) Active confirmed Problem 794726104 Gastroesophageal reflux disease without esophagitis (K21.9) Active confirmed Problem Gastroesophageal reflux disease (038705254) GERD (gastroesophageal reflux disease) (K21.9) Active confirmed Problem Gastroesophageal reflux disease (340986468) Esophageal reflux disease (K21.9) Active confirmed Plan Of Treatment Pending Test Test Name Order Date US abdomen complete 12/20/2022 Future Test Test Name Order Date COLONOSCOPY 09/02/2014 UPPER GI ENDOSCOPY 10/14/2021 Next Appt Details Provider Name:Ponce Fox , 04/15/2025 09:50:00 AM, [address], [address], [place], [address], Insurance Providers Payer Name Payer Address Payer Phone Subscriber Number Group Number Insured Name Patient Relationship to Insured Coverage Start Date Coverage End Date [facility] [address] [place] [phone] [id number] SASKIA BOLAND Self - patient is the insured Medical (General) History Medical History History ICD Code Denies [place],DM,CVA,Lung disease,renal dise ase Depression Negative screening colonoscopy in 09/2014 Transient cardiomyopathy in the GERD-EGD 10/2021 with a small hiatal hernia but otherwise normal with biopsies negative for Ko's esophagus Surgical History Surgery Date(Month/Year) Tubal ligation 1998 right outer elbow
--- OUTSIDE RECORDS SUMMARY | 2025-01-23 13:17 | XMS_ITS | Patient Health Record ---
Author [facility] Address [address] [place] [address] Care Team Providers Care Outside Sales Account Representative Name Role Phone Cedric Suh MD Primary Care Provider Unavaila ble Dagoberto, Tory Unavailable [phone] Yefri Womack Unavailable [phone] Allergies Allergen (clinical drug ingredient) Drug/Non Drug Allergy documented on EMR Reaction Allergy Type Onset Date Status Adhesive Skin Irritation Allergy Acti ve Results Component Value Reference Range Notes X ray : Foot, right 3V Reviewed date:03/07/2024 12:25:05 PM Interpretation:See Examination above Performing Lab: Notes/Report: See Examination above Reason For Referral No Information Medications Medication SIG (Take, Route, Frequency, Duration) Notes Start Date End Date Status Citalopram Hydrobromide 10 MG 1 tablet Orally Once a day Active Omeprazole 20 MG 1 capsule 30 minutes before morning meal Orally Once a day Active Gabapentin 300 MG 1 capsule Orally twi ce a day; Duration: 10 days 12/31/2021 Not-Taking Work Note . . . Patient cleared to return to work with no restrictions 02/08/2022 Not-Taking Citalopram Hydrobromide 20 MG 1 tablet Orally Once a day; Duration: 30 day(s) Not-Taking Feldene 20 MG 1 capsule with food Orally Once a day; Duration: 30 day(s) 08/30/2021 Not-Taking Acetaminophen Extra Strength 500 MG 2 tablets Orally every 6 hrs; Duration: 15 days 12/30/2021 Not-Taking Physical Therapy . . . 2-3x/week; Duration: 3-4 weeks 08/30/2021 Not-Taking Vitamin D Active Immunizations Vaccine Route Administration Date Status Comme nts COVID-19 Pfizer BioNTech Vaccine Unknown 08/22/2020 Administered First Dose: 06/2020 Social History Tobacco Use: Social History Observation Description Date Details (start date - stop date) Former Smoker NA - NA Tobacco Use/Smoking Question Answer Notes Are you a: former smoker Additional Findings: Tobacco Non-User Current no n-smoker Alcohol Screen Question Answer Notes Did you have a drink contain ing alcohol in the past year? Yes How often did you have a dri nk containing alcohol in the past year? 2 to 3 times a week (3 points) How often did you have 6 or more drinks on one occasion in the past year? Weekly (3 points) Points 6 Interpretation Positive Tobacco use other than smoking: Question Answer Notes Are you an other tobacco user? No Problems Problem Type SNOMED Code ICD Code Onset Dates Problem Status W/U Status Risk Notes Problem Acquired hallux valgus (54297468) Hallux valgus (acquired), right foot (M20.11) Active confirmed Problem Acquired hammer toe of right foot (7609874654310 105) Other hammer toe(s) (acquired), right foot (M20.41) Active confirmed Problem Acquired hammer toe of left foot (3333682275985 103) Other hammer toe(s) (acquired), left foot (M20.42) Active confirmed Vital Signs Height 5ft6in in 03/07/2024 Weight 162 lbs 03/07/2024 BMI 26.14 kg/m2 03/07/2024 Encounters Encounter Location Date Provider Diagnosis [facility] [place] [address] [place] [address] 03/07/2024 Tory Black Pain in right foot M79.671 ; Bursitis of intermetatarsal bursa of right foot M77.51 ; Pain in right ankle and joints of right foot M25.571 ; Metatarsalgia, right foot M77.41 and Hypertrophy of bone M89.30 Assessments Encounter Date Diagnosis (ICD Code) Assessment Notes Treatment Notes Treatment Clinical Notes Section Notes 03/07/2024 Pain in right foot (ICD-10 - M79.671) 03/07/2024 Bursitis of intermetatarsal bursa of right foot (ICD-10 - M77.51) 03/07/2024 Pain in right ankle and joints of right foot (ICD-10 - M25.571) 03/07/2024 Metatarsalgia, right foot (ICD-10 - M77.41) 03/07/2024 Hypertrophy of bone (ICD-10 - M89.30) Plan Of Treatment Pending Test Test Name Order Date ,[id number] TENDON SHEATH/LIGAMENT 1 05/29/202083134,[id number] TENDON SHEATH/LIGAMENT 0 05/28/202122924,[id number] TENDON SHEATH/LIGAMENT 0 07/05/2021,[id number] TENDON SHEATH/LIGAMENT 0 08/07/2023 Insurance Providers Payer Name Payer Address Payer Phone Subscriber Number Group Number Insured Name Patient Relationship to Insured Coverage Start Date Coverage End Date [facility] [address] [place] [id number] Liana Mckeon Self - patient is the insured Medical (General) History Medical History History ICD Code Chicken pox chronic sinusitis Surgical History Surgery Date(Month/Year) tubal ligation 1998 [place] right 01/12/2022 elbow sx- right 06/26/23
== END 2025-01-23 10:30 | disposition home or self-care (01) ==
LOC: HO.MAMMO 10:29
PROVIDERS: PCP Internal Medicine; Visit Provider Internal Medicine
DX: Z12.31 Encounter for screening mammogram for malignant neoplasm of breast (principal); Z13.820 Encounter for screening for osteoporosis; E28.39 Other primary ovarian failure
CPT/HCPCS: 77063; 77067; 77080

== ENCOUNTER → 2025-01-23 11:00 | Outpatient (BNV) | payer OTHER, SELFPAY | PROVIDERS: PCP Internal Medicine; Visit Provider Radiology Diagnostic Radiology | DX: E28.39 Other primary ovarian failure (principal) | CPT/HCPCS: 77080 ==

== ENCOUNTER 2025-03-01 20:40 | Emergency (ER) | payer OTHER, SELFPAY ==
--- OUTSIDE RECORDS SUMMARY | 2023-09-22 05:00 | XMS_ITS ---
Author Organization [facility] Address [address] [place] [address] Care Team Providers Care Lot Worker Name Role Phone Cedric Suh MD Primary Care Provider Unavaila Tory Peñaloza Unavailable [phone] Avery Encounters Encounter Location Date Provider Diagnosis [address] [address] 09/22/2023 Tory Arenas Plan Of Treatment No Information Progress Notes * Liana BABB LDOB: (59 yo F)Acc No.[id number]:09/22/2023 Progress Notes Patient: Liana JAMESON Provider: Omer Arenas DPM :1965 A ge:58 Y S ex:Female Date:09/22/2023 Address:[address] [place] [address] Pcp:Cedric Suh MD Subjective: * Chief Complaints: [...] 09/22/2023 Generated for Jorden chappell/William/Christina on: 1 05/02/2024 12:10 AM EDT
--- OUTSIDE RECORDS SUMMARY | 2024-02-07 05:45 | XMS_ITS ---
Author Organization [facility] Address [address] [place] [address] Care Team Providers Care Warehouse Worker Name Role Phone Cedric Suh MD Primary Care Provider Unavaila ble Black, Tory Unavailable [phone] Yefri Gillette [phone] Encounters Encounter Location Date Provider Diagnosis [address] [address] 02/07/2024 Yefri Gillette Plan Of Treatment No Information Progress Notes * Liana BABB LDOB: (59 yo F)Acc No.[id number]:02/07/2024 Progress Note Patient: Liana JAMESON Provider: Iam Womack DPM :1965 A ge:58 Y S ex:Female Date:02/07/2024 Address:[address] [place] [address] Pcp:Cedric Suh MD Subjective: * Chief Complaints: * * Medical History: Objective: * Vitals: Assessment: Plan: * Treatment: * Images: * The named appointment provid er may or may not be the originator of this progress note, and it is not deemed complete until electronically signed by the appointment provider. Sign off status: Pending * Provider: Iam Womack DPM Date: Generated for Jorden chapepll/William/Christina on: 05/02/2024 12:10 AM EDT
--- NOTE | ~2025-03-01 | XR_ITS ---
CLINICAL HISTORY: pain s p fall dancing 4 view right wrist Comparison: None provided Findings: There is an impacted, comminuted and apex palmar and medial angulated fracture of the distal radius. Significant soft tissue swelling is present. Radiocarpal alignment is maintained. There is a chronic appearing fracture of the ulnar styloid. Scapholunate interval is not widened. Carpal bones are normally aligned. First carpal metacarpal joint space narrowing is present. Metacarpals are intact. Metacarpal phalangeal articulations are normally aligned. No radiopaque foreign body. IMPRESSION: 1. Impacted, comminuted distal radial fracture with apex palmar and medial angulation. 2. Chronic appearing ulnar styloid fracture. 3. No displaced carpal fracture. This document has been electronically signed by: Marco A Mason III, MD PHD on 03/01/2025 22:07:13
--- NOTE | ~2025-03-01 | XR_ITS ---
CLINICAL HISTORY: fall on RUE dancing 3 view right hand Comparison: None provided Findings: Impacted distal radial fracture. Radiocarpal alignment is normal. Chronic appearing ulnar styloid fracture Scapholunate interval is normal. No carpal subluxation or dislocation. Metacarpal phalangeal articulations are normally aligned. 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 Normal phalangeal alignment. No erosions. No radiopaque foreign body. IMPRESSION: 1. Distal radial fracture. This document has been electronically signed by: Marco A Maosn III, MD PHD on 03/01/2025 22:08:09
--- NOTE | ~2025-03-01 | XR_ITS ---
CLINICAL HISTORY: post red 3 view right wrist Comparison: CR - XR WRIST RT MIN 3V - 03/01/25 21:21 EDT Findings: Three views of the casted right wrist are obtained. There is near anatomic alignment of the distal radial fracture fragments. Radiocarpal alignment is normal. Chronic ulnar styloid fracture is unchanged. IMPRESSION: 1. Postreduction images of the right wrist in near anatomic alignment. This document has been electronically signed by: Marco A Mason III, MD PHD on 03/02/2025 01:47:17
--- NOTE | 2025-03-01 20:57 | ED.UPPEXIN ---
HPI - Extremity Injury (Upper) General Chief Complaint: Extremity Injury, Upper Stated Complaint: right wrist broken? Time Seen by Provider: 03/01/25 23:35 History of Present Illness ED Provider: Kenji VIZCAINO narrative: The patient is a healthy and athletic 59-year-old woman who was dancing this evening when she accidentally fell and landed on her right wrist sustaining an injury associated with the deformity of the wrist. She did not hit her head or have any other injuries. She has no numbness or tingling in her fingers. She came to the emergency room for evaluation. She is not on any anticoagulation. Related Data Home Medications ?Medication ?Instructions ?Recorded ?Confirmed omeprazole 20 mg capsule,delayed 20 mg PO DAILY 11/15/21 11/15/21 release Vitamin D3 11/19/21 11/19/21 loratadine 10 mg tablet (Claritin) PO 11/19/21 Previous Rx's ?Medication ?Instructions ?Recorded citalopram 10 mg tablet 10 mg PO DAILY #90 tabs 12/09/24 oxycodone 5 mg tablet 5 mg PO Q6H PRN pain #10 tabs 03/02/25 Allergies Allergy/AdvReac Type Severity Reaction Status Date / Time No Known Allergies (No Known Allergy Verified 03/01/25 21:00 Allergies*) Review of Systems Review of Systems: Yes all other systems are reviewed and are negative [facility] Past Medical History Medical History Depression Surgical History H/O colonoscopy (~10/20/14) Hx of tubal ligation Social History Social History Patient Tobacco Use Status: Former Tobacco user Tobacco use type: Cigarette Smoked in Last 30 Days: No e-Cigarette/Vaping Use: Never Used Use of substances other than those prescribed or required for medical reasons: No Advance Directives: No Advance Directives Information Provided: Yes Do you have a plan to hurt others: No Plan Patient : No Physical Exam Vital Signs: Vital Signs: Last Vital Signs Temp 97.6 F 03/01/25 20:58 Pulse 59 03/01/25 20:58 Resp 18 03/01/25 20:58 BP 111/64 03/01/25 20:58 Pulse Ox 98 03/01/25 20:58 O2 Del Method Room Air 03/01/25 20:58 BMI result Body Mass Index 24.2 Const: Other: The patient is a very healthy looking 59-year-old who was awake and alert. She does not appear in acute distress but she has some obvious swelling to the right wrist. HEENT: Other: The face is symmetrical. ?Mucous membranes moist. Eyes: General: appearance normal, both eyes and all related structures Neck: Neck: Yes normal visual inspection and Yes full ROM Skin: Other: There is some swelling and bruising to the skin of the right wrist. The skin is intact. Neuro: Other: The patient is awake and alert with a normal mental status. She has normal sensation of the fingers of the right hand and can move the fingers. Extrem: Other: There is swelling and deformity to the right wrist. The right hand is neurovascularly intact. Course Course Course Narrative: This is a Rapid Medical Exam performed in triage by Nelli Romero PA-C. Full HPI, ROS and PE to be performed by primary ED provider. 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 limited ROM. NV intact Plan: XR Medications Administered Discontinued Medications Generic Name Dose Route Start Last Admin Trade Name Freq PRN Reason Stop Dose Admin Bupivacaine HCl 10 ml 03/01/25 23:37 03/01/25 23:41 Bupivacaine Mpf 0.25 % 10 Ml Vial INFILTRATI 03/01/25 23:38 10 ml ONCE ONE Administration Medical Decision Making Medical Decision Making MDM Narrative: The patient is a 59-year-old female who sustained a mechanical fall while dancing and injured her right wrist. X-rays of the right hand in the right wrist were ordered at triage. There is a distal radius fracture with dorsal angulation of the fracture segment of the distal radius. Because of the appearance of the fracture segments I felt that an attempt at reduction to restore a more physiologic alignment of the distal segment of the radius would be appropriate. I explained the rationale to the patient. I explained that we would do this using a hematoma block for pain management. The patient verbally consented to this procedure. The patient was given a hematoma block with 0.25% bupivacaine injected under sterile conditions through the dorsum of the wrist. A flash of blood was obtained before injecting the anesthetic. The patient seemed to receive adequate pain control following the hematoma block. The right arm was then hung from the right index and middle fingers with weights applied to the elbow. The arm was hung and this manner for 10 minutes. I also applied some manual manipulation of the fracture. I then applied a sugar-tong splint using cast padding, Orthoglass, and Jonatan bandages. A postreduction x-ray shows what I believe is improved alignment of the fracture segments. The patient will be discharged with a sling. She will be given a prescription for oxycodone. She should contact the [facility] orthopedic office for hand surgery follow up. She was advised to keep the arm elevated, keeping the injury at the level of the heart or higher. Procedures Orthopedic Fracture Reduction Fracture #1: Time Out Performed: Yes Side: right Fracture Reduction Location: radius Analgesia: hematoma block Technique: direct manipulation and traction/counter-traction Post Reduction X-rays Demonstrate: acceptable reduction Post-reduction neuro exam: intact Post-reduction vascular exam: intact Splint Applied: Yes Patient Tolerated Procedure: well Additional Comments: A hematoma block was applied under sterile conditions using 10 mL of 0.25% bupivacaine. The hematoma block was administered on the dorsum of the wrist after palpating the fracture deformity and prepping the skin with chlorhexidine. 10 mL of bupivacaine were administered through a 21 gauge needle after 1st aspirating blood from the fracture hematoma. The patient tolerated application of the hematoma block well and the patient received good analgesia from the hematoma block. Orthopedic Splinting/Casting Injury #1: Side: right Upper Extremity Injury Location: wrist Upper Extremity Immobilizer: sugar tong splint (A sugar-tong splint was applied after manipulation of the fracture, the splint was made with cast padding, Orthoglass, and Jonatan bandages. The splint was molded.) Discharge Plan Discharge Clinical Impression: Closed fracture of right distal radius Patient Disposition: Home, Self-Care Instructions: Wrist Fracture in Adults (ED) Additional Instructions: You sustained a fracture of your right wrist. The fracture was manipulated to try to straighten the fracture and a splint has been applied. Please plan on keeping your right wrist elevated to the level of your heart or higher. You may take 2 extra-strength acetaminophen (Tylenol) up to 3 times a day as needed for pain. In addition a prescription for oxycodone has been provided. You may use this medication for pain as well if necessary. Also you may use occasional doses of ibuprofen 400 mg for pain as well. Please call the orthopedic office on Monday morning to arrange a follow up appointment to discuss management of this fracture further. It is possible they may recommend surgery. Return to the emergency room if any acute problems develop. Prescriptions: New oxycodone 5 mg tablet 5 mg PO Q6H PRN (Reason: pain) Qty: 10 0RF Rx Instructions: Partial Fill upon patient request. No Action citalopram 10 mg tablet 10 mg PO DAILY Qty: 90 1RF omeprazole 20 mg Capsule,Delayed Release(Dr/Ec) 20 mg PO DAILY loratadine [Claritin] 10 mg Tablet PO Vitamin D3 Referrals: [facility] Orthopedic Surgeons [Provider Group] Stand Alone Forms: Work/School Release Print Language: Surinamese
[2025-03-01 20:58] VITALS: BP 111/64; PULSE 59; RESP 18; TEMP 36.4; O2SAT 98; BMI 24.2
[2025-03-01] MEDS: BUPivacaine MPF 0.25 % 10 ML VIAL INFILTRATI (23:41)
--- OUTSIDE RECORDS SUMMARY | 2025-03-02 00:10 | XMS_ITS | Clinical Summary ---
Author Organization [facility] Address [address] [place] [address] Care Team Providers Care Assistive Technology Specialist Name Role Phone Cedric Suh MD Primary Care Provider [phone] Allergies No known active allergies Medications Medication [...] age to complete this topic Care Teams Assistive Technology Specialist Relationship Specialty Start Date End Date Cedric Suh MD [address] [place] [address] Dr [address] [place] [id number] PCP - General Pantry Goods Worker 01/17/19
--- OUTSIDE RECORDS SUMMARY | 2025-03-02 00:10 | XMS_ITS | Patient Health Record ---
Author Organization [facility] Address [address] [place] [address] Care Team Providers Care Stove Mechanic Name Role Phone Patience Jaramillo M.D. Primary Care Provider Unavail able Ponce Fox [phone] Allergies Allergen (clinical drug ingredient) Drug/Non Drug Allergy documented on EMR Reaction Allergy Type Onset Date Status seasonal (uncoded) Unknown Allergy A ctive Reason For Referral No Information Medications Medication SIG (Take, Route, Frequency, Duration) Notes Start Date End Date Status Omeprazole 20 MG TAKE 1 CAPSULE BY [facility] EVERY DAY Oral; Duration: 90 Active Vitamin D Active Allergy 24-HR [...] Problem Status W/U Status Risk Notes Problem Epigastric pain (30768955) Epigastric pain (R10.13) Active confirmed Problem Screening for malignant neoplasm of colon (533784915) Encounter for screening for malignant neoplasm of colon (Z12.11) Active confirmed Problem Chest pain (98671199) Other chest pain (R07.89) Active confirmed Problem Gastroesophageal reflux disease without esophagitis (855124153) Gastroesophageal reflux disease without esophagitis (K21.9) Active confirmed Problem Gastroesophageal reflux disease (695107854) GERD (gastroesophageal reflux disease) (K21.9) Active confirmed Problem Gastroesophageal reflux disease (957370210) Esophageal reflux disease (K21.9) Active confirmed Plan Of Treatment Pending Test Test Name Order Date US abdomen complete 12/20/2022 Future Test Test Name Order Date COLONOSCOPY 09/02/2014 UPPER GI ENDOSCOPY 10/14/2021 Next Appt Details Provider Name:Ponce Fox , 04/15/2025 09:50:00 AM, [address], [address], [place], [address], Insurance Providers Payer Name Payer Address Payer Phone Subscriber Number Group Number Insured Name Patient Relationship to Insured Coverage Start Date Coverage End Date [facility] [address] [place] [phone] [id number] SASKIA BOLAND Self - patient is the insured Medical (General) History Medical History History ICD Code Denies [place],DM,CVA,Lung disease,renal dise ase Depression Negative screening colonoscopy in 09/2014 Transient cardiomyopathy in the GERD-EGD 10/2021 with a small hiatal hernia but otherwise normal with biopsies negative for Ko's esophagus Surgical History Surgery Date(Month/Year) Tubal ligation 1998 right outer elbow
--- OUTSIDE RECORDS SUMMARY | 2025-03-02 00:10 | XMS_ITS | Patient Health Record ---
Author [facility] Address [address] [place] [address] Care Team Providers Care Front Office Agent Name Role Phone Cedric Suh MD Primary Care Provider Unavaila ble Black, Tory Unavailable [phone] Allergies Allergen (clinical drug ingredient) Drug/Non Drug [...] Status Risk Notes Problem Acquired hallux valgus (09357187) Hallux valgus (acquired), right foot (M20.11) Active confirmed Problem Acquired hammer toe of right foot (6348181969444 105) Other hammer toe(s) (acquired), right foot (M20.41) Active confirmed Problem Acquired hammer toe of left foot (8550462733915 103) Other hammer toe(s) (acquired), left foot (M20.42) Active confirmed Vital Signs Height 5ft6in in 03/07/2024 Weight 162 lbs 03/07/2024 BMI 26.14 kg/m2 03/07/2024 Encounters Encounter Location Date Provider Diagnosis [facility] [address] [address] 03/07/2024 Tory Black Pain in right foot [...] Treatment Pending Test Test Name Order Date ,[id number] TENDON SHEATH/LIGAMENT 1 05/29/202024375,[id number] TENDON SHEATH/LIGAMENT 0 05/28/202186880,[id number] TENDON SHEATH/LIGAMENT 0 07/05/202189580,[id number] TENDON SHEATH/LIGAMENT 0 08/07/2023 Insurance Providers Payer Name Payer Address Payer Phone Subscriber Number Group Number Insured Name Patient Relationship to Insured Coverage Start Date Coverage End Date [facility] [address] [place] [phone] [id number] Liana Mckeon Self - patient is the insured Medical (General) History Medical History History ICD Code Chicken pox chronic sinusitis Surgical History Surgery Date(Month/Year) tubal ligation 1998 [place] right 01/12/2022 elbow sx- right 06/26/23
[2025-03-02 01:09] VITALS: BP 111/64; PULSE 59; RESP 18; TEMP 36.4; O2SAT 98
[2025-03-02] MEDS: oxyCODONE HCl Immed Release 5 MG TABLET PO (01:41)
== END 2025-03-02 01:09 | disposition home or self-care (01) ==
PROVIDERS: Emergency Provider Emergency Medicine; PCP Internal Medicine
DX: S52.501A Unspecified fracture of the lower end of right radius, initial encounter for closed fracture (principal); M25.531 Pain in right wrist; X50.1XXA Overexertion from prolonged static or awkward postures, initial encounter; Y93.9 Activity, unspecified; Y92.9 Unspecified place or not applicable; Y99.8 Other external cause status; Z79.899 Other long term (current) drug therapy
CPT/HCPCS: 25605; 29125; 73100; 73110; 73130; 99284; J0665

== ENCOUNTER → 2025-03-01 20:57 | Outpatient (BNV) | payer OTHER, SELFPAY | PROVIDERS: PCP Internal Medicine; Visit Provider Radiology Diagnostic Radiology | DX: S52.501A Unspecified fracture of the lower end of right radius, initial encounter for closed fracture (principal); W18.39XA Other fall on same level, initial encounter | CPT/HCPCS: 73110; 73130 ==

== ENCOUNTER → 2025-03-02 00:49 | Outpatient (BNV) | payer OTHER, SELFPAY | PROVIDERS: Emergency Provider Emergency Medicine; PCP Internal Medicine; Visit Provider Radiology Diagnostic Radiology | DX: M25.531 Pain in right wrist (principal) | CPT/HCPCS: 73100 ==

== ENCOUNTER 2025-03-02 06:56 | Emergency (ER) | payer OTHER, SELFPAY ==
[2025-03-02 07:05] VITALS: BP 104/64; PULSE 65; RESP 14; TEMP 36.4; O2SAT 95; BMI 24.7
--- NOTE | 2025-03-02 07:19 | ED.GENADULT ---
HPI - General Adult General Chief complaint: Extremity Problem Stated complaint: cast check Time Seen by Provider: 03/02/25 07:10 History of Present Illness HPI narrative: Patient is a 59-year-old female presents today after a fall and a fracture to the right arm yesterday. Had a splint placed. Complaining of increasing pain. No systemic complaints. No head injury. Related Data Home Medications ?Medication ?Instructions ?Recorded ?Confirmed omeprazole 20 mg capsule,delayed 20 mg PO DAILY 11/15/21 11/15/21 release Vitamin D3 11/19/21 11/19/21 loratadine 10 mg tablet (Claritin) PO 11/19/21 Previous Rx's ?Medication ?Instructions ?Recorded citalopram 10 mg tablet 10 mg PO DAILY #90 tabs 12/09/24 oxycodone 5 mg tablet 5 mg PO Q6H PRN pain #10 tabs 03/02/25 Allergies Allergy/AdvReac Type Severity Reaction Status Date / Time No Known Allergies (No Known Allergy Verified 03/02/25 07:06 Allergies*) Review of Systems Review of Systems: Positive pain to the right wrist. [facility] Past Medical History Medical History Depression Surgical History H/O colonoscopy (~10/20/14) Hx of tubal ligation Social History Social History Patient Tobacco Use Status: Former Tobacco user Tobacco use type: Cigarette e-Cigarette/Vaping Use: Never Used Physical Exam ED Exam Exam: Appearance: Alert. Oriented X3. No acute distress. Eyes: Pupils equal, round and reactive to light. ENT: Pharynx normal. Neck: Normal inspection. Neck supple. No lymph nodes noted. No crepitus CVS: Normal heart rate and rhythm. Pulses normal. Normal S1 and S2 Respiratory: No respiratory distress. Breath sounds normal. No Wheezing. No rales Abdomen: Soft and nontender. No rigidity. No distention. good BS x4 Skin: Skin warm and dry. Normal skin color. Normal skin turgor. Extremities: Examination of the right wrist doubt there is good capillary refill. Sensation intact. Movement of the digits intact. Neuro: Oriented X 3. No motor deficit. No sensory deficit. Moving all extermities. No slurred speech Vital Signs: Vital Signs - 24 hr 03/02/25 07:05 Temperature 97.6 F Pulse Rate 65 Respiratory Rate 14 Blood Pressure 104/64 Pulse Oximetry 95 Oxygen Delivery Method Room Air BMI result Body Mass Index 24.7 Medical Decision Making Medical Decision Making [facility] Narrative: I took the Jonatan bandage off. Examined the patient's right upper extremity neurovascularly intact. Open up the splint slightly. Reapplied Jonatan bandages. Will discharge patient home. Patient was given 1 oxycodone as she was unable to fill her script last night. Currently in stable condition. Differential Diagnosis Differential Diagnoses: The differential diagnosis associated with the presentation includes Fracture risk Admission/Observation Consideration of admission/observation: Escalation of care including admission/observation considered Lab Data [facility] Lab Attestation statement: I reviewed the patient's lab results. Radiology Impression Discussion of test interpretation with radiology: I have reviewed the radiologist's reading. Independent Historian Clinical information obtained from an independent historian. History obtained from or confirmed by: Friend Discharge Plan Discharge Clinical Impression: Aftercare for cast or splint check or change Patient Disposition: Home, Self-Care Instructions: Splint Care (ED) Prescriptions: No Action citalopram 10 mg tablet 10 mg PO DAILY Qty: 90 1RF omeprazole 20 mg Capsule,Delayed Release(Dr/Ec) 20 mg PO DAILY loratadine [Claritin] 10 mg Tablet PO Vitamin D3 oxycodone 5 mg tablet 5 mg PO Q6H PRN (Reason: pain) Qty: 10 0RF Rx Instructions: Partial Fill upon patient request. Referrals: Tye Freeman MD [Physician, Orthopedics] - 03/03/25 Print Language: Malay
[2025-03-02] MEDS: oxyCODONE HCl Immed Release 5 MG TABLET PO (07:44)
[2025-03-02 07:47] VITALS: BP 104/64; PULSE 65; RESP 14; TEMP 36.4; O2SAT 95
== END 2025-03-02 07:49 | disposition home or self-care (01) ==
PROVIDERS: Emergency Provider Emergency Medicine Emergency Medical Services; PCP Internal Medicine
DX: M79.601 Pain in right arm (principal); Z79.899 Other long term (current) drug therapy; Z87.891 Personal history of nicotine dependence
CPT/HCPCS: 99283

== ENCOUNTER 2025-03-04 09:32 | Outpatient (AMB) | payer OTHER, SELFPAY ==
--- OUTSIDE RECORDS SUMMARY | 2023-09-22 04:00 | XMS_ITS ---
Author Organization [facility] Address [address] [place] [address] Care Team Providers Care Geothermal Plant Manager Name Role Phone Cedric Suh MD Primary Care Provider Unavaila Tory Peñaloza Unavailable [phone] Avery Encounters Encounter Location Date Provider Diagnosis [address] [address] 09/22/2023 Tory Arenas Plan Of Treatment No Information Progress Notes * Liana BABB LDOB: (59 yo F)Acc No.[id number]:09/22/2023 Progress Notes Patient: Liana JAMESON Provider: Omer Arenas DPM :1965 A ge:58 Y S ex:Female Date:09/22/2023 Address:[address] [place] [address] Pcp:Cedric Suh MD Subjective: * Chief Complaints: [...] 09/22/2023 Generated for Jorden chappell/William/Christina on: 1 05/04/2024 10:46 AM EST
--- OUTSIDE RECORDS SUMMARY | 2024-02-07 04:45 | XMS_ITS ---
[facility] Address [address] [place] [id number] Care Team Providers Care Family Health Nurse Practitioner Name Role Phone Cedric Suh MD Primary Care Provider Unavaila ble Black, Tory Unavailable [phone] Yefri Gillette [phone] Encounters Encounter Location Date Provider Diagnosis [address] [address] 02/07/2024 Yefri Gillette Plan Of Treatment No Information Progress Notes * Liana BABB LDOB: (59 yo F)Acc No.[id number]:02/07/2024 Progress Note Patient: Liana JAMESON Provider: Iam Womack DPM :1965 A ge:58 Y S ex:Female Date:02/07/2024 Address:[address] [place] [address] Pcp:Cedric Suh MD Subjective: * Chief Complaints: [...] Date: 1 Generated for Jorden chappell/William/Christina on: 05/04/2024 10:46 AM EST
--- NOTE | 2025-03-04 10:12 | MHC.OFFVIS ---
Vital Signs 03/04/25 10:17 Height 5 ft 6 in Weight 152 lb BMI 24.5 Intake Visit Reasons: ED-RT Wrist; fall and a fracture to the right arm Intake Note: Liana 59-year-old woman right hand dominant female who works at [employer], presents today for her S/P ED visit for her right wrist and arm injury. States she was dancing 03/01/25 when she accidentally fell and landed on her right wrist causing deformity of the wrist. Seen in ED same day where she was reduced and splinted. Currently states she has no pain since being placed in splint, denies numbness, tingling or locking of any finger. Allergies No Known Allergies (No Known Allergies*) Allergy (Verified 03/04/25 10:24) HPI HPI ED-RT Wrist; fall and a fracture to the right arm: Details: Liana is a 59 year old right hand dominant woman who presents for a right distal radius fracture, from a fall while dancing, DOI: 03/01/25. She was seen in the ED, reduced, and splinted on 03/01/25. She was seen back on 03/02/25 with complaints of pain, as there was a delay in filling her Oxycodone prescription. She says she is doing well and denies any pain while in her splint. She denies any numbness or tingling. 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 Review of Systems Const All systems reviewed & are unremarkable except as noted in HPI and below Physical Exam Vital Signs: BMI result Body Mass Index 24.5 Const General: cooperative, healthy appearing and no acute distress Orientation/consciousness: patient oriented x3 HEENT Head: Yes normocephalic and Yes atraumatic Eyes EOM: EOMs intact bilaterally Resp Effort & Inspection: normal respiratory effort and able to speak in complete sentences Cardio Jugular venous distension: no JVD Skin General skin exam: turgor normal Rashes: no rashes Neuro General: patient oriented x3 Extrem Other: Evaluation of Right Upper Extremity: The patient is alert, oriented, and in no acute distress She is seen in a Sugar-tong splint Neuro: sensation is normal to the tips of all digits Vascular: Cap refill brisk ROM: She can move her fingertips while in her splint Radiographs: 3 views of the right wrist were taken and viewed by me today in clinic. They show a comminuted, intra-articular distal radius fracture. There is a transverse fracture line in the metaphysis. On the lateral view we see the intra-articular extension that passes from the central aspect of the articular surface extending proximally and dorsally. I am concerned that this is likely an unstable fracture fragment. Psych Appearance: grossly normal Affect: normal affect Attitude: cooperative Assessment & Plan Assessment & Plan (1) Closed fracture of right distal radius: Code(s): S52.501A - Unspecified fracture of the lower end of right radius, initial encounter for closed fracture Category: Medical Plan Assessment & Plan: 1. Right distal radius fracture, comminuted intra-articular From a fall, DOI: 03/01/25 I educated her about this condition I discussed operative and non-operative treatment options I recommend surgery, and she is in agreement I discussed activity modifications, she is to lift nothing heavier than a cellphone for the next 4-6 weeks. They should also avoid any heavy impact activities, falls, or sports activities for the next 6 weeks She will perform gentle ROM exercises at home The risks and benefits of operative treatment were discussed with the patient and the patient wishes to proceed with surgery. These risks include, but are not limited to risk of damage to blood vessels, nerves, tendons, infection, recurrence, incomplete relief of preoperative symptoms, persistent pain, possible need for further surgery and the risks associated with regional blocks and anesthesia. The plan is to take the patient to the operating room sometime on 03/06/25 for the following procedures: 1. Right distal radius ORIF, under general All of the preoperative paperwork including the consent was reviewed today. All the patient's questions were answered. The patient understands that they will be contacted by our outpatient surgery rn soon to schedule this procedure She denies Diabetes, blood thinners, asthma, heart, lung, kidney issues Scribed for Inga Prado MD by Vishal Wells, certified medical biller, on 03/04/25 at 10:40 AM, EST. Orders: Orders XR wrist RT min 3V Today M25.531 - Pain in right wrist Coding Level of Care Code New Pt Level 4 (07242) Diagnoses Closed fracture of right distal radius S52.501A
[2025-03-04 10:17] VITALS: BMI 24.5
--- OUTSIDE RECORDS SUMMARY | 2025-03-04 10:47 | XMS_ITS | Patient Health Record ---
Author Organization [facility] Address [address] [place] [address] Care Team Providers Care Automotive General Sales Manager Name Role Phone Patience Jaramillo M.D. Primary Care Provider Unavail able Ponce Fox [phone] Allergies Allergen (clinical drug ingredient) Drug/Non Drug Allergy documented on EMR Reaction Allergy Type Onset Date Status seasonal (uncoded) Unknown Allergy A ctive Reason For Referral No Information Medications Medication SIG (Take, Route, Frequency, Duration) Notes Start Date End Date Status Omeprazole 20 MG TAKE 1 CAPSULE BY [facility] EVERY DAY Oral; Duration: 90 Active Vitamin [...] W/U Status Risk Notes Problem Epigastric pain (37660492) Epigastric pain (R10.13) Active confirmed Problem Screening for malignant neoplasm of colon (516233761) Encounter for screening for malignant neoplasm of colon (Z12.11) Active confirmed Problem Chest pain (48217022) Other chest pain (R07.89) Active confirmed Problem Gastroesophageal reflux disease without esophagitis (437811255) Gastroesophageal reflux disease without esophagitis (K21.9) Active confirmed Problem Gastroesophageal reflux disease (466665951) GERD (gastroesophageal reflux disease) (K21.9) Active confirmed Problem Gastroesophageal reflux disease (860387891) Esophageal reflux disease (K21.9) Active confirmed Plan Of Treatment Pending Test Test Name Order Date US abdomen complete 12/20/2022 Future Test Test Name Order Date COLONOSCOPY 09/02/2014 UPPER GI ENDOSCOPY 10/14/2021 Next Appt Details Provider Name:Ponce Fox , 04/15/2025 09:50:00 AM, [address], [address], [place], [address], Insurance Providers Payer Name Payer Address Payer Phone Subscriber Number Group Number Insured Name Patient Relationship to Insured Coverage Start Date Coverage End Date [facility] [address] [place] [phone] [id number] SASKIA BOLAND Self - patient is the [...]
--- OUTSIDE RECORDS SUMMARY | 2025-03-04 10:47 | XMS_ITS | Clinical Summary ---
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
--- OUTSIDE RECORDS SUMMARY | 2025-03-04 10:47 | XMS_ITS | Patient Health Record ---
Author [facility] Address [address] [place] [address] Care Team Providers Care Specialty Finishing Utility Person Name Role Phone Cedric Suh MD Primary Care Provider Unavaila ble Black, Tory Unavailable [phone] Allergies Allergen (clinical drug ingredient) Drug/Non Drug [...] Status Risk Notes Problem Acquired hallux valgus (75124605) Hallux valgus (acquired), right foot (M20.11) Active confirmed Problem Acquired hammer toe of right foot (1668233283457 105) Other hammer toe(s) (acquired), right foot (M20.41) Active confirmed Problem Acquired hammer toe of left foot (7316223546154 103) Other hammer toe(s) (acquired), left foot (M20.42) Active confirmed Vital Signs Height 5ft6in in 03/07/2024 Weight 162 lbs 03/07/2024 BMI 26.14 kg/m2 03/07/2024 Encounters Encounter Location Date Provider Diagnosis [facility] [address] [address] 03/07/2024 Tory Black Pain in right foot [...] Treatment Pending Test Test Name Order Date ,[id number] TENDON SHEATH/LIGAMENT 1 05/29/202052217,[id number] TENDON SHEATH/LIGAMENT 0 05/28/202103988,[id number] TENDON SHEATH/LIGAMENT 0 07/05/202169243,[id number] TENDON SHEATH/LIGAMENT 0 08/07/2023 Insurance Providers Payer Name Payer Address Payer Phone Subscriber Number Group Number Insured Name Patient Relationship to Insured Coverage Start Date Coverage End Date [facility] [address] [place] [id number] Liana Mckeon Self - patient is the insured Medical (General) History Medical History History ICD Code Chicken pox chronic sinusitis Surgical History Surgery Date(Month/Year) tubal ligation 1998 [place] right 01/12/2022 elbow sx- right 06/26/23
== END 2025-03-04 11:16 | disposition home or self-care (01) ==
LOC: HO.HOS 09:32
PROVIDERS: PCP Internal Medicine; Visit Provider Orthopaedic Surgery
DX: S52.501A Unspecified fracture of the lower end of right radius, initial encounter for closed fracture (principal)
CPT/HCPCS: 99204

== ENCOUNTER → 2025-03-04 09:33 | Outpatient (BNV) | payer OTHER, SELFPAY | PROVIDERS: Visit Provider Radiology Diagnostic Radiology | DX: M25.531 Pain in right wrist (principal) | CPT/HCPCS: 73110 ==

== ENCOUNTER 2025-03-04 12:38 | Outpatient (REF) | payer OTHER, SELFPAY ==
--- OUTSIDE RECORDS SUMMARY | 2023-09-22 04:00 | XMS_ITS ---
Author Organization [facility] Address [address] [place] [address] Care Team Providers Care File Machine Operator Name Role Phone Cedric Suh MD Primary Care Provider Unavaila Tory Peñaloza Unavailable [phone] Avery Encounters Encounter Location Date Provider Diagnosis [address] [address] 09/22/2023 Tory Arenas Plan Of Treatment No Information Progress Notes * Liana BABB LDOB: (59 yo F)Acc No.[id number]:09/22/2023 Progress Notes Patient: Liana JAMESON Provider: Omer Arenas DPM :1965 A ge:58 Y S ex:Female Date:09/22/2023 Address:[address] [place] [address] Pcp:Cedric Suh MD Subjective: * Chief Complaints: [...] 09/22/2023 Generated for Jorden chappell/William/Christina on: 1 05/05/2024 03:14 PM EST
--- OUTSIDE RECORDS SUMMARY | 2024-02-07 04:45 | XMS_ITS ---
Author Organization [facility] Address [address] [place] [address] Care Team Providers Care Level Glass Forming Machine Operator Name Role Phone Cedric Suh MD Primary Care Provider Unavaila ble Black, Tory Unavailable [phone] Yefri Gillette [phone] Encounters Encounter Location Date Provider Diagnosis [address] [address] 02/07/2024 Yefri Gillette Plan Of Treatment No Information Progress Notes * Liana BABB LDOB: (59 yo F)Acc No.[id number]:02/07/2024 Progress Note Patient: Liana JAMESON Provider: Iam Womack DPM :1965 A ge:58 Y S ex:Female Date:02/07/2024 Address:[address] [place] [address] Pcp:Cedric Suh MD Subjective: * Chief Complaints: [...] Date: 1 Generated for Jorden chappell/William/Christina on: 05/05/2024 03:13 PM EST
--- NOTE | ~2025-03-04 | XR_ITS ---
EXAMINATION: XR WRIST, RIGHT CLINICAL INFORMATION: M25.531 - Pain in right wrist COMPARISON: Previous x-rays most recent March 02, 2025 TECHNIQUE: PA, lateral, and oblique views of the right wrist. FINDINGS: Bony detail is obscured due to overlying cast. No change in the comminuted fracture of the right distal radius intra-articular with the radiocarpal joint and ulnar styloid fracture. Mild degenerative changes of the first RESIDENTIAL joint. Otherwise normal-appearing carpal bones. There is overlying soft tissue swelling. XR/XR wrist RT min 3V IMPRESSION: No appreciable change in the comminuted intra-articular right distal radius fracture and ulnar styloid fracture. Electronically signed by: So Montez MD 03/04/2025 09:48 AM [facility]
--- OUTSIDE RECORDS SUMMARY | 2025-03-05 15:14 | XMS_ITS | Clinical Summary ---
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
--- OUTSIDE RECORDS SUMMARY | 2025-03-05 15:14 | XMS_ITS | Patient Health Record ---
Author Organization [facility] Address [address] [place] [address] Care Team Providers Care Business Development Sales Executive Name Role Phone Cedric Suh MD Primary Care Provider Unavaila ble Black, Tory Unavailable [phone] Allergies Allergen (clinical drug ingredient) Drug/Non Drug [...] Status Risk Notes Problem Acquired hallux valgus (85219646) Hallux valgus (acquired), right foot (M20.11) Active confirmed Problem Acquired hammer toe of right foot (4767251585482 105) Other hammer toe(s) (acquired), right foot (M20.41) Active confirmed Problem Acquired hammer toe of left foot (8540390607850 103) Other hammer toe(s) (acquired), left foot (M20.42) Active confirmed Vital Signs Height 5ft6in in 03/07/2024 Weight 162 lbs 03/07/2024 BMI 26.14 kg/m2 03/07/2024 Encounters Encounter Location Date Provider Diagnosis [facility] [address] [address] 03/07/2024 Tory Black Pain in right foot [...] Treatment Pending Test Test Name Order Date ,[id number] TENDON SHEATH/LIGAMENT 1 05/29/202010489,[id number]-[id number] TENDON SHEATH/LIGAMENT 0 05/28/202171607,[id number] TENDON SHEATH/LIGAMENT 0 07/05/202166643,[id number]-HER TENDON SHEATH/LIGAMENT 0 08/07/2023 Insurance Providers Payer Name Payer Address Payer Phone Subscriber Number Group Number Insured Name Patient Relationship to Insured Coverage Start Date Coverage End Date [facility] [address] [place] [address] [id number] Liana Mckeon Self - patient is the insured Medical (General) History Medical History History ICD Code Chicken pox chronic sinusitis Surgical History Surgery Date(Month/Year) tubal ligation 1998 [place] right 01/12/2022 elbow sx- right 06/26/23
--- OUTSIDE RECORDS SUMMARY | 2025-03-05 15:14 | XMS_ITS | Patient Health Record ---
Author Organization [facility] Address [address] [place] [address] Care Team Providers Care Preschool Lead Teacher Name Role Phone Patience Jaramillo M.D. Primary Care Provider Unavail able Ponce Fox [phone] Allergies Allergen (clinical drug ingredient) Drug/Non Drug Allergy documented on EMR Reaction Allergy Type Onset Date Status seasonal (uncoded) Unknown Allergy A ctive Reason For Referral No Information Medications Medication SIG (Take, Route, Frequency, Duration) Notes Start Date End Date Status Omeprazole 20 MG TAKE 1 CAPSULE BY [facility] EVERY DAY Oral; Duration: 90 Active Vitamin [...] W/U Status Risk Notes Problem Epigastric pain (62512159) Epigastric pain (R10.13) Active confirmed Problem Screening for malignant neoplasm of colon (410439050) Encounter for screening for malignant neoplasm of colon (Z12.11) Active confirmed Problem Chest pain (04434053) Other chest pain (R07.89) Active confirmed Problem Gastroesophageal reflux disease without esophagitis (068998390) Gastroesophageal reflux disease without esophagitis (K21.9) Active confirmed Problem Gastroesophageal reflux disease (838090187) GERD (gastroesophageal reflux disease) (K21.9) Active confirmed Problem Gastroesophageal reflux disease (691522554) Esophageal reflux disease (K21.9) Active confirmed Plan Of Treatment Pending Test Test Name Order Date US abdomen complete 12/20/2022 Future Test Test Name Order Date COLONOSCOPY 09/02/2014 UPPER GI ENDOSCOPY 10/14/2021 Next Appt Details Provider Name:Ponce Fox , 04/15/2025 09:50:00 AM, [address], [address], [place], [address], Insurance Providers Payer Name Payer Address Payer Phone Subscriber Number Group Number Insured Name Patient Relationship to Insured Coverage Start Date Coverage End Date [facility] [address] [place] [address] [id number] SASKIA BOLAND Self - patient is the insured Medical (General) History Medical History History ICD Code Denies [place],DM,CVA,Lung disease,renal dise ase Depression Negative screening colonoscopy in 09/2014 Transient cardiomyopathy in the GERD-EGD 10/2021 with a small hiatal hernia but otherwise normal with biopsies negative for Ko's esophagus Surgical History Surgery Date(Month/Year) Tubal ligation 1998 right outer elbow
== END 2025-03-04 12:39 | disposition home or self-care (01) ==
LOC: HO.HOSX 12:38
PROVIDERS: Visit Provider Orthopaedic Surgery
DX: S52.571A Other intraarticular fracture of lower end of right radius, initial encounter for closed fracture (principal); W18.30XA Fall on same level, unspecified, initial encounter; Y93.41 Activity, dancing
CPT/HCPCS: 73110

== ENCOUNTER 2025-03-06 07:49 | Day surgery (SDC) | payer OTHER, SELFPAY ==
--- NOTE | 2025-03-05 08:51 | P.CONAN_ITS ---
Documented by User: Светлана Martinez NP 03/05/25 08:51 HPI - Anesthesia Eval Consult details Narrative: 59yo F for Right Radius Distal Fracture ORIF PMFSH Active Problems Active Problems: All Active Problems Closed fracture of right distal radius (Acute) Colon cancer screening (Acute) GERD (gastroesophageal reflux disease) (Acute) Hiatal hernia (Acute) Depression (Acute) Past Medical History Medical History GERD (gastroesophageal reflux disease) Depression Family History Family history of problems with anesthesia: No Surgical History Surgical History Hx of foot surgery Hx of elbow surgery H/O colonoscopy (~10/20/14) Hx of tubal ligation History of Problems with Anesthesia: No Social History Social History Patient Tobacco Use Status: Former Tobacco user Tobacco use type: Cigarette e-Cigarette/Vaping Use: Never Used Use of substances other than those prescribed or required for medical reasons: No Are you DNR?: No Advance Directives: No Advance Directives Information Provided: Yes 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 Allergy/AdvReac Type Severity Reaction Status Date / Time No Known Allergies (No Known Allergy Verified 03/06/25 08:13 Allergies*) Home Medications ?Medication ?Instructions ?Recorded ?Confirmed ?Last Taken ?Type omeprazole 20 mg capsule,delayed 20 mg PO DAILY PRN Ga stric Reflux 11/15/21 03/06/25 11/19/21 History release Vitamin D3 PO DAILY 11/19/21 11/19/21 U nknown History loratadine 10 mg tablet (Claritin) 10 mg PO DAILY PRN Allergy Symptoms 11/19/21 03/06/25 Unknown History Assessment and Plan Assessment Anesthesia Assessment: Chart Reviewed Final Anesthetic Review Family History of Problems with Anesthesia: No History of Problems with Anesthesia: No Documented by User: Natalie Springer MD 03/06/25 09:43 PMFSH Past Medical History Medical History GERD (gastroesophageal reflux disease) Depression Surgical History Surgical History Hx of foot surgery Hx of elbow surgery H/O colonoscopy (~10/20/14) Hx of tubal ligation Social History Social History Patient Tobacco Use Status: Former Tobacco user Tobacco use type: Cigarette e-Cigarette/Vaping Use: Never Used Use of substances other than those prescribed or required for medical reasons: No Are you DNR?: No Advance Directives: No Advance Directives Information Provided: Yes 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 Allergy/AdvReac Type Severity Reaction Status Date / Time No Known Allergies (No Known Allergy Verified 03/06/25 08:13 Allergies*) Home Medications ?Medication ?Instructions ?Recorded ?Confirmed ?Last Taken ?Type omeprazole 20 mg capsule,delayed 20 mg PO DAILY PRN Ga stric Reflux 11/15/21 03/06/25 11/19/21 History release Vitamin D3 PO DAILY 11/19/21 11/19/21 U nknown History loratadine 10 mg tablet (Claritin) 10 mg PO DAILY PRN Allergy Symptoms 11/19/21 03/06/25 Unknown History Exam Airway Mallampati Class: II TM Dist: >3cm Neck ROM: Full Heart: rrr Lungs: cta Assessment and Plan Assessment Anesthesia Assessment: Anesthesia Plan Discussed Final Anesthetic Review NPO: Yes ASA Class: II Final Preanesthetic Review: No Changes in Pt Med Stat, Meds/Allgs Chart Reviewed, Consent Obtained/Reviewed and Anes Risks/Benef Reviewed Patient Risk: Intermediate Procedure Risk: Intermediate Anesthetic Plan Anesthetic Plan: GA and Agree w/ Assess. and Plan Disposition: Standard PACU
--- NOTE | ~2025-03-06 | FL_ITS ---
EXAMINATION: FL GUIDANCE ONLY HISTORY: radius distal fracture ORIF right COMPARISON: Correlation is made with plain films of the right wrist dated 03/04/2025. TECHNIQUE: Fluoroscopy time: 93.04 seconds. Cumulative Dose: 2.6717 mGy. DAP: 0.1615 Gycm2 Images: 8. FINDINGS: Fluoroscopic spot films of the right wrist demonstrate internal fixation of the previously seen fracture of the distal radius with a sideplate and multiple orthopedic screws. FL/FL guidance in OR IMPRESSION: Fluoroscopy during procedure. Please see procedure report for additional information. Electronically signed by: Ponce Contreras MD 03/06/2025 02:26 PM PRINCE
[2025-03-06 08:02] VITALS: BMI 24.0
[2025-03-06 08:14] VITALS: BP 101/65; PULSE 55; RESP 14; TEMP 36.7; O2SAT 95
[2025-03-06] MEDS: Lactated Ringers 1,000 ML 100 ML IVCONT (08:32)
--- NOTE | 2025-03-06 10:30 | MHC.SHP ---
Pre-Procedural Eval Section A - 24 Hr Update-Section A only Date of Service: 03/06/25 The patient is an INPATIENT: No Changes since office visit: No Cold of Flu in the past 2 weeks, No New Medical Problems, No Changes in Medication and No Patient answered all questions The patient has been examined within 24 hours of the surgical procedure. The History & Physical has been completed within 30 days and I have reviewed it.: Yes Section B - Complete if H&P > 30 days Chief Complaint: Unspecified fracture of the lower end of right rad Allergies: Allergies Allergy/AdvReac Type Severity Reaction Status Date / Time adhesive tape AdvReac Blister Verified 03/06/25 09:56 Plan Diagnosis/Plan: Unchanged I have reviewed the history and physical and performed a pertinent physical examination on my patient. No changes have occurred unless specified. Time Spent With Patient Time: Total time managing care of this patient today ____ minutes.
--- NOTE | 2025-03-06 10:31 | W.PM.OPN ---
Operative Note Operative Note Date of Service: 03/06/25 Narrative: Operative Note Narrative: Preop diagnosis: 1. Right Distal radius fracture, comminuted intra-articular Postop diagnosis: Same Procedure: 1. Right Distal radius fracture open reduction internal fixation, 3 part intra-articular Surgeon: Inga Prado MD Certified Flex Endoscope Reprocessor: Sebastián JO Anesthesia: General anesthesia plus regional block Findings: Comminuted intra-articular distal radius fracture Implants: A 3 hole Accu Med volar locking plate, with 5 X 2.3 mm locking pegs/screws, and 3 3.5 mm cortical screws Tourniquet time: 51 minutes EBL: 5.0 ml Specimen: None Drains: None Complications: None Disposition: Brought to the recovery room in stable condition Plan: Follow-up in 10-14 days for wound check, suture removal and postop radiographs The patient will be placed in either a short-arm cast or a volar wrist splint. Encouraged no lifting of anything heavier than a cell phone. Please encourage active and passive range of motion of the digits. Follow-up at 4-5 weeks postop for repeat radiographs. Indications: The patient is a 59 year old woman with a right intra-articular distal radius fracture . The risks and benefits of operative treatment, including but not limited to risk of damage to blood vessels, nerves, tendons, infection, recurrence, persistent pain or numbness, incomplete resolution of preoperative symptoms, or need for further surgery were discussed with the patient and they wished to proceed with surgery. Procedure: Once consent was obtained patient was brought back to the operating suite and placed in the operating table in a supine position. A regional block was performed by the anesthesia team. Perioperative antibiotics and anesthesia was administered by the anesthesia team. A tourniquet was applied to the proximal aspect of the right upper extremity and the limb was prepped and draped in a standard surgical fashion. The limb was elevated exsanguinated with Esmarch bandage and the tourniquet inflated to 250 mm of mercury for a total tourniquet time of 51 minutes. The FluoroScan was used throughout the case to assess our reduction, and facilitate implant placement. A gentle closed reduction was 1st performed on the patient's right distal radius fracture. Was assessed radiographically before proceeding with the reduction internal fixation. I then made an 8 cm longitudinal incision over the distal aspect of the flexor carpi radialis tendon. The incision was made through the skin to the subcutaneous tissue using a 15. Blade. Then carefully dissected down to flexor carpi radialis tendon she tenotomy scissors. The FCR tendon sheath was then incised longitudinally using tenotomy scissors under direct visualization. The FCR tendon was then retracted ulnarly. I then made a longitudinal incision in the volar forearm fascia through the floor of FCR tendon sheath using tenotomy scissors under direct visualization. I identified the interval between the radial artery and the flexor tendons. This interval was developed further with my index finger, releasing some of the muscular fibers of the flexor pollicis longus. A dull weatlander retractor was then placed. I then created an ulnarly based flap of the pronator quadratus by releasing the radial and distal edges using a 15. Blade. A Monzon elevator was used to elevate the pronator quadratus from the volar surface of the distal radius. This then revealed to us our distal radius fracture. An open reduction was then performed on our distal radius fracture. This is a comminuted intra-articular distal radius fracture with a transverse fracture line through the metaphysis, a longitudinal extension at the scapholunate interval, and another longitudinal split seen on the lateral view. I then placed a short standard 3 hole Accu Med volar locking plate on the volar surface of the distal radius. I placed a single K-wire through the distal aspect of the plate and into the distal radius. This was assessed using fluoroscopic images. I was satisfied with the placement of our plate. I then placed 5 X 2.3 mm locking screws/pegs in the distal aspect of the plate and distal radius by 1st drilling bicortically with a 2.0 mm drill bit, measuring with a depth gauge, and placing the appropriate length locking screws/pegs. The placement of our plate and screws was then assessed again using fluoroscopic images. The once satisfied with the placement of the volar locking plate and screws on the distal aspect of the distal radius, the plate was then reduced to the shaft of the radius. I then placed 3 X 3.5 mm cortical screws to the proximal aspect of the plate and into the shaft of the radius. This was done by 1st drilling bicortically with a 2.8 mm drill bit, measuring with a depth gauge, and placing the appropriate length screw. Final radiographs were then obtained. The DRUJ was assessed and found to be stable on exam. I was satisfied with our reduction and placement of all implants. At this point the wound was irrigated with normal saline. The pronator quadratus was reduced back over the volar locking plate using some 3-0 Vicryl suture material. The tourniquet was then deflated and hemostasis was obtained with a brief period of local pressure and bipolar monopolar electrocautery. The subcutaneous layer was then reapproximated using some 4-0 Vicryl suture, and the skin edges were reapproximated using some 5 0 Prolene suture. The wound was then infiltrated with some 1% lidocaine with epinephrine postop pain control. A sterile dressing and a short dorsal splint allowing for active flexion and extension of the digits was applied. The patient appears to have tolerated the procedure well and with no complications. All digits were well vascularized conclusion of the case.
[2025-03-06 12:28] VITALS: BP 102/55; PULSE 77; RESP 18; TEMP 36.9; O2SAT 95
[2025-03-06 12:33] VITALS: BP 97/51; PULSE 82; RESP 18; O2SAT 95
[2025-03-06 12:38] VITALS: BP 94/45; PULSE 72; RESP 16; O2SAT 95
[2025-03-06 12:43] VITALS: BP 95/47; PULSE 68; RESP 14; O2SAT 95
[2025-03-06 12:58] VITALS: BP 95/47; PULSE 74; RESP 14; TEMP 36.7; O2SAT 96
== END 2025-03-06 13:31 | disposition home or self-care (01) ==
PROVIDERS: PCP Internal Medicine; Visit Provider Orthopaedic Surgery
PROC: (CPT 25609; principal; 2025-03-06 09:30)
DX: S52.571A Other intraarticular fracture of lower end of right radius, initial encounter for closed fracture (principal); W01.0XXA Fall on same level from slipping, tripping and stumbling without subsequent striking against object, initial encounter; Y93.41 Activity, dancing; Y92.9 Unspecified place or not applicable; Y99.9 Unspecified external cause status; K21.9 Gastro-esophageal reflux disease without esophagitis; F32.A Depression, unspecified; Z79.899 Other long term (current) drug therapy; Z91.040 Latex allergy status; Z87.891 Personal history of nicotine dependence; Z98.890 Other specified postprocedural states
CPT/HCPCS: 25609; C1713; J0131; J0665; J0690; J1100; J2003; J2004; J2250; J2405; J2704

== ENCOUNTER → 2025-03-06 07:49 | Outpatient (BNV) | payer OTHER, SELFPAY | PROVIDERS: PCP Internal Medicine; Visit Provider Orthopaedic Surgery | DX: S52.571A Other intraarticular fracture of lower end of right radius, initial encounter for closed fracture (principal) | CPT/HCPCS: 25609 ==

== ENCOUNTER 2025-03-19 08:17 | Outpatient (REF) | payer OTHER, SELFPAY ==
--- NOTE | ~2025-03-19 | XR_ITS ---
EXAMINATION: XR WRIST 3 OR MORE VIEWS RIGHT HISTORY: M25.531 - Pain in right wrist COMPARISON: Comparison is made with the prior examination dated 03/04/2025. FINDINGS: Three views of the right wrist are submitted. Osseous mineralization is normal. The patient is status post internal fixation of the previously noted fracture of the distal radial metaphysis with a sideplate and multiple orthopedic screws. The fracture line remains visible. An ulna styloid fracture is again noted. Again seen is mild degenerative change of the 1st carpometacarpal joint. The soft tissues are unremarkable. XR/XR wrist RT min 3V IMPRESSION: Internal fixation of the previously seen fracture of the distal radial metaphysis. Electronically signed by: Ponce Contreras MD 03/19/2025 02:54 PM EST
== END 2025-03-19 08:18 | disposition home or self-care (01) ==
LOC: HO.HOSX 08:17
DX: S52.501A Unspecified fracture of the lower end of right radius, initial encounter for closed fracture (principal)
CPT/HCPCS: 29075; 73110

== ENCOUNTER 2025-03-19 14:05 | Outpatient (AMB) | payer OTHER, SELFPAY ==
--- OUTSIDE RECORDS SUMMARY | 2023-09-22 04:00 | XMS_ITS ---
Author Organization [facility] Address [address] [place] [address] Care Team Providers Care Poke In Name Role Phone Cedric Suh MD Primary Care Provider Unavaila Tory Peñaloza Unavailable [phone] Avery Encounters Encounter Location Date Provider Diagnosis [address] [address] 09/22/2023 Tory Arenas Plan Of Treatment No Information Progress Notes * Liana BABB LDOB: (59 yo F)Acc No.[id number]:09/22/2023 Progress Notes Patient: Liana JAMESON Provider: Omer Arenas DPM :1965 A ge:58 Y S ex:Female Date:09/22/2023 Address:[address] [place] [address] Pcp:Cedric Suh MD Subjective: * Chief Complaints: * [address] Avery. * Medical History: Objective: * Vitals: Assessment: Plan: * Treatment: * Images: * The named appointment provid er may or may not be the originator of this progress note, and it is not deemed complete until electronically signed by the appointment provider. Sign off status: Pending * Provider: Omer Arenas DPM Date: 0 09/22/2023 Generated for Jorden chappell/William/Christina on: 1 05/20/2024 02:28 AM EST
--- OUTSIDE RECORDS SUMMARY | 2024-02-07 04:45 | XMS_ITS ---
Author Organization [facility] Address [address] [place] [address] Care Team Providers Care Cigarette Stamper Name Role Phone Cedric Suh MD Primary Care Provider Unavaila ble Black, Tory Unavailable [phone] Yefri Gillette [phone] Encounters Encounter Location Date Provider Diagnosis [address] [address] 02/07/2024 Yefri Gileltte Plan Of Treatment No Information Progress Notes * Liana BABB LDOB: (59 yo F)Acc No.[id number]:02/07/2024 Progress Note Patient: Liana JAMESON Provider: Iam Womack DPM :1965 A ge:58 Y S ex:Female Date:02/07/2024 Address:[address] [place] [address] Pcp:Cedric Suh MD Subjective: * Chief Complaints: [...] Date: 1 Generated for Jorden chappell/William/Christina on: 05/20/2024 02:27 AM EST
[2025-03-19 14:36] VITALS: BMI 23.6
--- NOTE | 2025-03-19 14:36 | A.OFFVIS_ITS ---
Vital Signs 03/19/25 14:36 Height 5 ft 6 in Weight 146 lb BMI 23.6 Intake Visit Reasons: PO RT distal radius ORIF 03/06/25 AR Intake Note: Liana is a 59 year old right hand dominant female who presents today for a Post- operative Visit status post Right Distal Radius ORIF performed 03/06/[address] Prado. Patient reports she is doing well. She is very worried about going in a cast or having her sutures removed. She continues taking her prescribed medications with relief. Patient is denies numbness, tingling, Allergies adhesive tape Adverse Reaction (Verified 03/19/25 14:41) Blister HPI HPI PO RT distal radius ORIF 03/06/25 AR: Details: Liana is a 59 year old right hand dominant female who presents today for a Post- operative Visit status post Right Distal Radius ORIF performed 03/06/[address] Prado. Patient reports she is doing well. She is very worried about going in a cast or having her sutures removed. She continues taking her prescribed medications with relief. Patient is denies numbness, tingling, and reports that her pain is very well-controlled in the right wrist. No other acute complaints or concerns at this time. 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 Review of Systems Const All systems reviewed & are unremarkable except as noted in HPI and below Physical Exam Vital Signs: BMI result Body Mass Index 23.6 Const General: cooperative, healthy appearing and no acute distress Orientation/consciousness: patient oriented x3 HEENT Head: Yes normocephalic and Yes atraumatic Eyes EOM: EOMs intact bilaterally Resp Effort & Inspection: normal respiratory effort and able to speak in complete sentences Cardio Jugular venous distension: no JVD Skin General skin exam: turgor normal Rashes: no rashes Neuro General: patient oriented x3 Extrem Other: Evaluation of Right Upper Extremity: The patient is alert, oriented, and in no acute distress She is seen in a Sugar-tong splint Neuro: sensation is normal to the tips of all digits Vascular: Cap refill brisk ROM: Patient is able to flex and extend the digits of the right hand Skin: Well approximated and well healing incision site noted over the volar right wrist Pain: No tenderness to palpation about right distal radius No pain with range of motion of the right hand Psych Appearance: grossly normal Affect: normal affect Attitude: cooperative Office Procedures Casting/Splints 83038-Hoif/Wrist Cast Application Procedure code (CPT) selection complete Results Reviewed Results Reviewed: X-rays obtained in the office today and independently reviewed by me, Sebastián Louis PA-C, demonstrate right distal radius fracture status post ORIF with all orthopedic hardware in place and in satisfactory clinical alignment. Assessment & Plan Assessment & Plan (1) Closed fracture of right distal radius: Code(s): S52.501A - Unspecified fracture of the lower end of right radius, initial encounter for closed fracture Category: Medical Plan 1. Status post right distal radius ORIF DOS 03/06/2025 Patient appears to be recovering well postoperatively Patient is educated about typical recovery course At this time, the risks and benefits of Velcro wrist splint versus casting are discussed with the patient, and she elects to move forward with casting at this time Therefore, patient is placed into a short-arm cast Patient is educated on proper cast care and precautions 2 lb weight limit in right hand until follow-up Patient should continue working on gentle range of motion of the digits of the right hand Patient should return to our office if cast gets wet, dirty, damaged, or feels too loose or too tight Patient understands this and is amenable to this plan Follow-up in 2 weeks with repeat x-rays, anticipate cast removal at that time, sooner with any acute concerns Orders: Orders XR wrist RT min 3V Today M25.531 - Pain in right wrist Coding Level of Care Code Global (75151) Diagnoses Closed fracture of right distal radius S52.501A CPT Codes Casting - CPT: 64893-Kugz/Wrist Cast Application ([id number])
--- OUTSIDE RECORDS SUMMARY | 2025-03-20 02:28 | XMS_ITS | Patient Health Record ---
[facility] Address [address] [place] [address] Care Team Providers Care Director Of Group Counseling Program Name Role Phone Cedric Suh MD Primary Care Provider Unavaila ble Black, Tory Unavailable [phone] Allergies Allergen (clinical drug ingredient) Drug/Non Drug Allergy documented on EMR Reaction Allergy Type Onset Date Status Adhesive Skin Irritation Allergy Acti ve Reason For Referral No Information Medications Medication [...] Status Risk Notes Problem Acquired hallux valgus (37070027) Hallux valgus (acquired), right foot (M20.11) Active confirmed Problem Acquired hammer toe of right foot (1599655325976 105) Other hammer toe(s) (acquired), right foot (M20.41) Active confirmed Problem Acquired hammer toe of left foot (1138971002791 103) Other hammer toe(s) (acquired), left foot (M20.42) Active confirmed Plan Of Treatment Pending Test Test Name Order Date ,F7006-BDM TENDON SHEATH/LIGAMENT 1 05/29/202002524,[id number] TENDON SHEATH/LIGAMENT 0 05/28/2021 63919,D9538-JOP TENDON SHEATH/LIGAMENT 0 07/05/2021 17750,[id number]-GTP TENDON SHEATH/LIGAMENT 0 08/07/2023 Insurance Providers Payer Name Payer Address Payer Phone Subscriber Number Group Number Insured Name Patient Relationship to Insured Coverage Start Date Coverage End Date [facility] [address] [place] [address] [id number] Liana Mckeon Self - patient is the insured Medical (General) History Medical History History ICD Code Chicken pox chronic sinusitis Surgical History Surgery Date(Month/Year) tubal ligation 1997 [place] right 01/12/2022 elbow sx- right 06/26/23
--- OUTSIDE RECORDS SUMMARY | 2025-03-20 02:28 | XMS_ITS | Clinical Summary ---
Author Organization [facility] Address [address] [place] [address] Care Team Providers Care Nascar Driver Name Role Phone Cedric Suh MD Primary Care Provider [phone] Allergies No known active allergies Medications Medication [...] age to complete this topic Care Teams Nascar Driver Relationship Specialty Start Date End Date Cedric Suh MD [address] [place] [address] Dr Paul [address] [place] [id number] PCP - General Gis Analyst 01/17/19
--- OUTSIDE RECORDS SUMMARY | 2025-03-20 02:28 | XMS_ITS | Patient Health Record ---
Author Organization [facility] Address [address] [place] [address] Care Team Providers Care Fire Pilot Name Role Phone Patience Jaramillo M.D. Primary Care Provider Unavail able Ponce Fox [phone] Allergies Allergen (clinical drug ingredient) Drug/Non Drug Allergy documented on EMR Reaction Allergy Type Onset Date Status seasonal (uncoded) Unknown Allergy A ctive Reason For Referral No Information Medications Medication SIG (Take, Route, Frequency, Duration) Notes Start Date End Date Status Omeprazole 20 MG Capsule Delayed Release TAKE 1 CAPSULE BY MOUTH EVERY DAY Oral; Duration: 90 Active Vitamin D Active Allergy 24-HR Active Citalopram Hydrobromide 20 MG Tablet 1 tablet Orally Once a day Active Immunizations Vaccine Route Administration Date Status Comme nts Influenza Unknown 12/30/2020 Administered Social History Social History Drugs/Alcohol: Social Info Question Answer Notes Alcohol Screen Did you have a drink containing alcohol in the past year? Yes How often did you have a drink containing alcohol in the past year? 4 or more times a week (4 points) How many drinks did you have on a typical day when you were drinking in the past year? 1 or 2 drinks (0 point) How often did you have 6 or more drinks on one occasion in the past year? 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; drinks 2-3 drinks 5x/week Nonsmoker; drinks 2-3 drinks 5x/week Nonsmoker; drinks 2-3 drinks 5x/week Nonsmoker; drinks 2-3 drinks 5x/week Problems Problem Type SNOMED Code ICD Code Onset Dates Problem Status W/U Status Risk Notes Problem Epigastric pain (17988502) Epigastric pain (R10.13) Active confirmed Problem Screening for malignant neoplasm of colon (243656998) Encounter for screening for malignant neoplasm of colon (Z12.11) Active confirmed Problem Chest pain (77515289) Other chest pain (R07.89) Active confirmed Problem Gastroesophageal reflux disease without esophagitis (961905448) Gastroesophageal reflux disease without esophagitis (K21.9) Active confirmed Problem Gastroesophageal reflux disease (051692732) GERD (gastroesophageal reflux disease) (K21.9) Active confirmed Problem Gastroesophageal reflux disease (312384762) Esophageal reflux disease (K21.9) Active confirmed Plan Of Treatment Pending Test Test Name Order Date US abdomen complete 12/20/2022 Future Test Test Name Order Date COLONOSCOPY 09/02/2014 UPPER GI ENDOSCOPY 10/14/2021 Next Appt Details Provider Name:Ponce Ragland Ruddy , 04/15/2025 09:50:00 AM, [address], [address], [place], [address], Insurance Providers Payer Name Payer Address Payer Phone Subscriber Number Group Number Insured Name Patient Relationship to Insured Coverage Start Date Coverage End Date [facility] [address] [place] [phone] [id number] SASKIA BOLAND Self - patient is the insured Medical (General) History Medical History History ICD Code Denies [place],DM,CVA,Lung disease,renal dise ase Depression Negative screening colonoscopy in 09/2014 Transient cardiomyopathy in the GERD-EGD 10/2021 with a small hiatal hernia but otherwise normal with biopsies negative for Ko's esophagus Surgical History Surgery Date(Month/Year) Tubal ligation 1998 right outer elbow
== END 2025-03-19 15:31 | disposition home or self-care (01) ==
LOC: HO.HOS 14:05
DX: S52.501A Unspecified fracture of the lower end of right radius, initial encounter for closed fracture (principal)
CPT/HCPCS: 29075; 99024

== ENCOUNTER → 2025-03-19 14:22 | Outpatient (BNV) | payer OTHER, SELFPAY | PROVIDERS: Visit Provider Radiology Diagnostic Radiology | DX: M25.531 Pain in right wrist (principal) | CPT/HCPCS: 73110 ==

== ENCOUNTER 2025-03-25 10:17 | Outpatient (AMB) | payer OTHER, SELFPAY ==
--- OUTSIDE RECORDS SUMMARY | 2024-02-07 04:45 | XMS_ITS ---
Author Organization [facility] Address [address] [place] [address] Care Team Providers Care Airplane And Engine Inspector Name Role Phone Cedric Suh MD Primary Care Provider Unavaila ble Black, Tory Unavailable [phone] Yefri Gillette [phone] Encounters Encounter Location Date Provider Diagnosis [address] [address] 02/07/2024 Yefri Gillette Plan Of Treatment No Information Progress Notes * Liana BABB LDOB: (59 yo F)Acc No.[id number]:02/07/2024 Progress Note Patient: Liana JAMESON Provider: Iam Womack DPM :1965 A ge:58 Y S ex:Female Date:02/07/2024 Address:[address] [place] [address] Pcp:Cedric Suh MD Subjective: * Chief Complaints: * * [...] Date: 1 Generated for Jorden chappell/William/Christina on: 05/25/2024 12:37 PM EST
[2025-03-25 10:20] VITALS: BMI 23.6
--- NOTE | 2025-03-25 10:20 | A.OFFVIS_ITS ---
Vital Signs 03/25/25 10:20 Height 5 ft 6 in Weight 146 lb BMI 23.6 Intake Visit Reasons: PO RT distal radius ORIF 03/06/25 AR cast change Intake Note: Liana is a 59 year old right hand dominant female who presents today for a Post- operative Visit status post Right Distal Radius ORIF performed 03/06/[address] Prado. She was last seen on 03/19/25 where she was placed in a short-arm cast. Patient reports today her cast was too tight at the CMC joint and the ulnar apect of her wrist. Allergies adhesive tape Adverse Reaction (Verified 03/25/25 10:21) Blister HPI HPI PO RT distal radius ORIF 03/06/25 AR cast change: Details: Liana is a 59 year old right hand dominant female who presents today for a Post- operative Visit status post Right Distal Radius ORIF performed 03/06/[address] Prado. She was last seen on 03/19/25 where she was placed in a short-arm cast. Patient reports today her cast was too tight at the CMC joint and the ulnar apect of her wrist. 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 Review of Systems Const All systems reviewed & are unremarkable except as noted in HPI and below Physical Exam Vital Signs: BMI result Body Mass Index 23.6 Const General: cooperative, healthy appearing and no acute distress Orientation/consciousness: patient oriented x3 HEENT Head: Yes normocephalic and Yes atraumatic Eyes EOM: EOMs intact bilaterally Resp Effort & Inspection: normal respiratory effort and able to speak in complete sentences Cardio Jugular venous distension: no JVD Skin General skin exam: turgor normal Rashes: no rashes Neuro General: patient oriented x3 Extrem Other: Evaluation of Right Upper Extremity: The patient is alert, oriented, and in no acute distress She is seen in a [facility] splint Neuro: sensation is normal to the tips of all digits Vascular: Cap refill brisk ROM: Patient is able to flex and extend the digits of the right hand Skin: Well approximated and well healing incision site noted over the volar right wrist Pain: No tenderness to palpation about right distal radius No pain with range of motion of the right hand Psych Appearance: grossly normal Affect: normal affect Attitude: cooperative Office Procedures Casting/Splints 02988-Fifz/Wrist Cast Application Procedure code (CPT) selection complete Assessment & Plan Assessment & Plan (1) Closed fracture of right distal radius: Code(s): S52.501A - Unspecified fracture of the lower end of right radius, initial encounter for closed fracture Category: Medical Plan 1. Status post right distal radius ORIF DOS 03/06/2025 Patient appears to be recovering well postoperatively Patient is educated about typical recovery course Cast changed today without issue Patient is educated on proper cast care and precautions Follow-up for previously scheduled postop, sooner with any acute concerns Coding Level of Care Code Global (97643) Diagnoses Closed fracture of right distal radius S52.501A CPT Codes Casting - CPT: 65164-Hoji/Wrist Cast Application ([id number])
--- OUTSIDE RECORDS SUMMARY | 2025-03-25 12:37 | XMS_ITS | Clinical Summary ---
Author Organization [facility] Address [address] [place] [address] Care Team Providers Care Qa Automation Engineer Name Role Phone Cedric Suh MD Primary Care Provider [phone] Allergies No known active allergies Medications Medication [...] age to complete this topic Care Teams Qa Automation Engineer Relationship Specialty Start Date End Date Cedric Suh MD [address] [place] [address] Dr Paul [address] [place] [id number] PCP - General Equipment Service Lead 01/17/19
--- OUTSIDE RECORDS SUMMARY | 2025-03-25 12:37 | XMS_ITS | Patient Health Record ---
Author Organization [facility] Address [address] [place] [address] Care Team Providers Care Weather Reporter Name Role Phone Patience Jaramillo M.D. Primary Care Provider Unavail able Ponce Fox [phone] Allergies Allergen (clinical drug ingredient) Drug/Non Drug [...] W/U Status Risk Notes Problem Epigastric pain (44965735) Epigastric pain (R10.13) Active confirmed Problem Screening for malignant neoplasm of colon (447230077) Encounter for screening for malignant neoplasm of colon (Z12.11) Active confirmed Problem Chest pain (21229640) Other chest pain (R07.89) Active confirmed Problem Gastroesophageal reflux disease without esophagitis (361512292) Gastroesophageal reflux disease without esophagitis (K21.9) Active confirmed Problem Gastroesophageal reflux disease (003047642) GERD (gastroesophageal reflux disease) (K21.9) Active confirmed Problem Gastroesophageal reflux disease (963656266) Esophageal reflux disease (K21.9) Active confirmed Plan Of Treatment Pending Test Test Name Order Date US abdomen complete 12/20/2022 Future Test Test Name Order Date COLONOSCOPY 09/02/2014 UPPER GI ENDOSCOPY 10/14/2021 Next Appt Details Provider Name:Ponce Ragland Ruddy , 04/15/2025 09:50:00 AM, [address], [address], [place], [address], Insurance Providers Payer Name Payer Address Payer Phone Subscriber Number Group Number Insured Name Patient Relationship to Insured Coverage Start Date Coverage End Date [facility] [address] [place] [phone] [phone] [id number] SASKIA BOLAND Self - patient is the insured Medical (General) History Medical History History ICD Code Denies [place],DM,CVA,Lung disease,renal dise ase Depression Negative screening colonoscopy in 09/2014 Transient cardiomyopathy in the GERD-EGD 10/2021 with a small hiatal hernia but otherwise normal with biopsies negative for Ko's esophagus Surgical History Surgery Date(Month/Year) Tubal ligation 1998 right outer elbow
--- OUTSIDE RECORDS SUMMARY | 2025-03-25 12:38 | XMS_ITS | Patient Health Record ---
[facility] Address [address] [place] [address] Care Team Providers Care Supervisor Of Guidance And Testing Name Role Phone Cedric Suh MD Primary Care Provider Unavaila ble Black, Tory Unavailable [phone] Allergies Allergen (clinical drug ingredient) Drug/Non Drug [...] Status Risk Notes Problem Acquired hallux valgus (66380407) Hallux valgus (acquired), right foot (M20.11) Active confirmed Problem Acquired hammer toe of right foot (3428301714729 105) Other hammer toe(s) (acquired), right foot (M20.41) Active confirmed Problem Acquired hammer toe of left foot (5688107900723 103) Other hammer toe(s) (acquired), left foot (M20.42) Active confirmed Plan Of Treatment Pending Test Test Name Order Date ,[id number] TENDON SHEATH/LIGAMENT 1 05/29/202029281,[id number] TENDON SHEATH/LIGAMENT 0 05/28/2021 [id number] TENDON SHEATH/LIGAMENT 0 07/05/2021 [id number] TENDON SHEATH/LIGAMENT 0 08/07/2023 Insurance Providers Payer Name Payer Address Payer Phone Subscriber Number Group Number Insured Name Patient Relationship to Insured Coverage Start Date Coverage End Date [facility] [address] [place] [address] [id number] Liana Mckeon Self - patient is the insured Medical (General) History Medical History History ICD Code Chicken pox chronic sinusitis Surgical History Surgery Date(Month/Year) tubal ligation 1997 [place] right 01/12/2022 elbow sx- right 06/26/23
== END 2025-03-25 11:18 | disposition home or self-care (01) ==
LOC: HO.HOS 10:18
DX: S52.501A Unspecified fracture of the lower end of right radius, initial encounter for closed fracture (principal)
CPT/HCPCS: 29085; 99024

== ENCOUNTER → 2025-03-25 10:17 | Outpatient (BNVA) | payer OTHER, SELFPAY | DX: S52.501D Unspecified fracture of the lower end of right radius, subsequent encounter for closed fracture with routine healing (principal) | CPT/HCPCS: 29085 ==

== ENCOUNTER 2025-04-02 10:10 | Outpatient (REF) | payer OTHER, SELFPAY ==
--- OUTSIDE RECORDS SUMMARY | 2024-02-07 04:45 | XMS_ITS ---
[facility] Address [address] [place] [address] Care Team Providers Care Crusher Screen Repairer Name Role Phone Cedric Suh MD Primary Care Provider Unavaila ble Black, Tory Unavailable [phone] Yefri Gillette [phone] Encounters Encounter Location Date Provider Diagnosis [address] [address] 02/07/2024 Yefri Gillette Plan Of Treatment No Information Progress Notes * Liana BABB LDOB: (59 yo F)Acc No.[id number]:02/07/2024 Progress Note Patient: Liana JAMESON Provider: Iam Womack DPM :1965 A ge:58 Y S ex:Female Date:02/07/2024 Address:[address] [place] [address] Pcp:Cedric Suh MD Subjective: * Chief Complaints: [...] 1 Generated for Jorden chappell/William/Christina on: 1 06/04/2024 12:10 PM EST
--- NOTE | ~2025-04-02 | XR_ITS ---
EXAMINATION: XR WRIST, RIGHT CLINICAL INFORMATION: M25.531 - Pain in right wrist COMPARISON: 03/19/2025 TECHNIQUE: PA, lateral, and oblique views of the right wrist. FINDINGS: Again seen is volar plate and screws fixing the distal radial fracture. Hardware is intact without loosening. Fracture remains visible on the ulnar side of the distal radius extending to the distal radioulnar joint and distal radial articular surface between the lunate and scaphoid facets. On the oblique view, there is mild increasing periosteal new bone formation in the proximal end of the distal radioulnar joint. There is a stable appearance of transverse fractures through the ulnar styloid base. XR/XR wrist RT min 3V IMPRESSION: Minimal changes consistent with continued healing post-ORIF of a distal radial intra-articular fracture. Unchanged ulnar styloid fracture Electronically signed by: Ming Daniel MD 04/02/2025 02:32 PM PRINCE
--- OUTSIDE RECORDS SUMMARY | 2025-04-03 12:11 | XMS_ITS | Clinical Summary ---
Author Organization [facility] Prior to 09/28/[address] [place] [address] Care Team Providers Care Mainframe Systems Administrator Name Role Phone Cedric Suh MD Primary Care Provider [phone] Allergies No known active allergies Medications Medication [...] age to complete this topic Care Teams Mainframe Systems Administrator Relationship Specialty Start Date End Date Cedric Suh MD [address] [place] [address] Dr Paul [address] [place] [address] [phone] PCP - General Senior Military Analyst 01/17/19
--- OUTSIDE RECORDS SUMMARY | 2025-04-03 12:11 | XMS_ITS | Patient Health Record ---
Author Organization [facility] Address [address] [place] [address] Care Team Providers Care Radiology Nurse Name Role Phone Patience Jaramillo M.D. Primary Care Provider Unavail able Ponce Fox [phone] Allergies Allergen (clinical drug ingredient) Drug/Non Drug [...] W/U Status Risk Notes Problem Epigastric pain (97388048) Epigastric pain (R10.13) Active confirmed Problem Screening for malignant neoplasm of colon (409924255) Encounter for screening for malignant neoplasm of colon (Z12.11) Active confirmed Problem Chest pain (51440907) Other chest pain (R07.89) Active confirmed Problem Gastroesophageal reflux disease without esophagitis (428149477) Gastroesophageal reflux disease without esophagitis (K21.9) Active confirmed Problem Gastroesophageal reflux disease (485713149) GERD (gastroesophageal reflux disease) (K21.9) Active confirmed Problem Gastroesophageal reflux disease (683304284) Esophageal reflux disease (K21.9) Active confirmed Plan Of Treatment Pending Test Test Name Order Date US abdomen complete 12/20/2022 Future Test Test Name Order Date COLONOSCOPY 09/02/2014 UPPER GI ENDOSCOPY 10/14/2021 Next Appt Details Provider Name:Ponce Ragland Ruddy , 04/15/2025 09:50:00 AM, [address], [address], [place], [address], Insurance Providers Payer Name Payer Address Payer Phone Subscriber Number Group Number Insured Name Patient Relationship to Insured Coverage Start Date Coverage End Date [facility] [address] [place] [phone] [id number] SASKIA BOLAND Self - patient is the insured Medical (General) History Medical History History ICD Code Denies [place],DM,CVA,Lung disease,renal dise ase Depression Negative screening colonoscopy in 09/2014 Transient cardiomyopathy in the GERD-EGD 10/2021 with a small hiatal hernia but otherwise normal with biopsies negative for Ko's esophagus Surgical History Surgery Date(Month/Year) Tubal ligation 1998 right outer elbow
--- OUTSIDE RECORDS SUMMARY | 2025-04-03 12:11 | XMS_ITS | Patient Health Record ---
[facility] Address [address] [place] [address] Care Team Providers Care Building Rental Superintendent Name Role Phone Cedric Suh MD Primary Care Provider Unavaila ble Black, Tory Unavailable [phone] Allergies Allergen (clinical drug ingredient) Drug/Non Drug [...] Status Risk Notes Problem Acquired hallux valgus (54135272) Hallux valgus (acquired), right foot (M20.11) Active confirmed Problem Acquired hammer toe of right foot (5573543595829 105) Other hammer toe(s) (acquired), right foot (M20.41) Active confirmed Problem Acquired hammer toe of left foot (9171116714099 103) Other hammer toe(s) (acquired), left foot (M20.42) Active confirmed Plan Of Treatment Pending Test Test Name Order Date ,[id number] TENDON SHEATH/LIGAMENT 1 05/29/202029402,[id number] TENDON SHEATH/LIGAMENT 0 05/28/2021 13503,[id number] TENDON SHEATH/LIGAMENT 0 07/05/2021 42838,[id number] TENDON SHEATH/LIGAMENT 0 08/07/2023 Insurance Providers Payer Name Payer Address Payer Phone Subscriber Number Group Number Insured Name Patient Relationship to Insured Coverage Start Date Coverage End Date [facility] [address] [place] [address] [id number] Liana Mckeon Self - patient is the insured Medical (General) History Medical History History ICD Code Chicken pox chronic sinusitis Surgical History Surgery Date(Month/Year) tubal ligation 1997 [place] right 01/12/2022 elbow sx- right 06/26/23
== END 2025-04-02 10:11 | disposition home or self-care (01) ==
LOC: HO.HOSX 10:10
DX: S52.501D Unspecified fracture of the lower end of right radius, subsequent encounter for closed fracture with routine healing (principal)
CPT/HCPCS: 29075; 73110

== ENCOUNTER 2025-04-02 13:55 | Outpatient (AMB) | payer OTHER, SELFPAY ==
--- NOTE | 2025-04-02 14:27 | A.OFFVIS_ITS ---
Vital Signs 04/02/25 14:34 Height 5 ft 6 in Weight 146 lb BMI 23.6 Intake Visit Reasons: PO RT distal radius ORIF 03/06/25 AR Intake Note: Liana is a 59 year old right hand dominant female who presents today for a Post- operative Visit s/p Right Distal Radius ORIF, DOS: 03/06/[address] Prado. At her last visit, sutures were removed and steri-strips were applied. She was placed in a short arm cast. Today, cast was taken off an xrays were updated. She complains of a burning sensation on the radial aspect of her right CMC joint. She takes Tylenol PRN with relief. Allergies adhesive tape Adverse Reaction (Verified 04/02/25 14:35) Blister HPI HPI PO RT distal radius ORIF 03/06/25 AR: Details: Liana is a 59 year old right hand dominant female who presents today for a Post- operative Visit s/p Right Distal Radius ORIF, DOS: 03/06/[address] Prado. At her last visit, sutures were removed and steri-strips were applied. She was placed in a short arm cast. Today, cast was taken off an xrays were updated. She complains of a burning sensation on the radial aspect of her right CMC joint. Patient also reports some discomfort in the volar aspect of the right wrist. She takes Tylenol PRN with relief. 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 Review of Systems Const All systems reviewed & are unremarkable except as noted in HPI and below Physical Exam Vital Signs: BMI result Body Mass Index 23.6 Const General: cooperative, healthy appearing and no acute distress Orientation/consciousness: patient oriented x3 HEENT Head: Yes normocephalic and Yes atraumatic Eyes EOM: EOMs intact bilaterally Resp Effort & Inspection: normal respiratory effort and able to speak in complete sentences Cardio Jugular venous distension: no JVD Skin General skin exam: turgor normal Rashes: no rashes Neuro General: patient oriented x3 Extrem Other: Evaluation of Right Upper Extremity: The patient is alert, oriented, and in no acute distress Removed from short-arm cast prior to x-rays Neuro: sensation is normal to the tips of all digits Vascular: Cap refill brisk ROM: Patient is able to flex and extend the digits of the right hand Skin: Well approximated and well healing incision site noted over the volar right wrist Pain: There is some mild tenderness to palpation about the right distal radius No pain with range of motion of the right hand Psych Appearance: grossly normal Affect: normal affect Attitude: cooperative Office Procedures Casting/Splints 60915-Prgx/Wrist Cast Application Procedure code (CPT) selection complete Results Reviewed Results Reviewed: X-rays obtained in the office today and independently reviewed by me, Sebastián Louis PA-C, demonstrate status post ORIF of right distal radius with some early evidence of interval bony healing. Assessment & Plan Assessment & Plan (1) Closed fracture of right distal radius: Code(s): S52.501A - Unspecified fracture of the lower end of right radius, initial encounter for closed fracture Category: Medical Plan 1. Status post right distal radius ORIF DOS 03/06/2025 Patient appears to be recovering well postoperatively Patient is educated about typical recovery course Due to ongoing tenderness, I feel it is best to place the patient back into a short-arm cast for another week Patient is educated on proper cast care and precautions Follow-up in 1 week with repeat x-rays for reassessment, anticipate cast removal at that time, sooner with any acute concerns Orders: Orders XR wrist RT min 3V Today M25.531 - Pain in right wrist Coding Level of Care Code Global (87296) Diagnoses Closed fracture of right distal radius S52.501A CPT Codes Casting - CPT: 23752-Ydft/Wrist Cast Application ([id number])
[2025-04-02 14:34] VITALS: BMI 23.6
--- OUTSIDE RECORDS SUMMARY | 2025-04-02 16:42 | XMS_ITS | Patient Health Record ---
Author Organization [facility] Address [address] [place] [address] Care Team Providers Care Power Brake Rebuilder Name Role Phone Patience Jaramillo M.D. Primary Care Provider Unavail able Ponce Fox [phone] Allergies Allergen (clinical drug ingredient) Drug/Non Drug [...] W/U Status Risk Notes Problem Epigastric pain (59596373) Epigastric pain (R10.13) Active confirmed Problem Screening for malignant neoplasm of colon (229401392) Encounter for screening for malignant neoplasm of colon (Z12.11) Active confirmed Problem Chest pain (06762855) Other chest pain (R07.89) Active confirmed Problem Gastroesophageal reflux disease without esophagitis (001755224) Gastroesophageal reflux disease without esophagitis (K21.9) Active confirmed Problem Gastroesophageal reflux disease (373436641) GERD (gastroesophageal reflux disease) (K21.9) Active confirmed Problem Gastroesophageal reflux disease (528596873) Esophageal reflux disease (K21.9) Active confirmed Plan Of Treatment Pending Test Test Name Order Date US abdomen complete 12/20/2022 Future Test Test Name Order Date COLONOSCOPY 09/02/2014 UPPER GI ENDOSCOPY 10/14/2021 Next Appt Details Provider Name:Ponce Ragland Ruddy , 04/15/2025 09:50:00 AM, [address], [address], [place], [address], Insurance Providers Payer Name Payer Address Payer Phone Subscriber Number Group Number Insured Name Patient Relationship to Insured Coverage Start Date Coverage End Date [facility] [address] [place] [phone] [id number] SASKIA BOLAND Self - patient is the insured Medical (General) History Medical History History ICD Code Denies [place],DM,CVA,Lung disease,renal dise ase Depression Negative screening colonoscopy in 09/2014 Transient cardiomyopathy in the GERD-EGD 10/2021 with a small hiatal hernia but otherwise normal with biopsies negative for Ko's esophagus Surgical History Surgery Date(Month/Year) Tubal ligation 1998 right outer elbow
--- OUTSIDE RECORDS SUMMARY | 2025-04-02 16:42 | XMS_ITS | Patient Health Record ---
Author [facility] Address [address] [place] [address] Care Team Providers Care Loom Changer Name Role Phone Cedric Suh MD Primary Care Provider Unavaila ble Black, Tory Unavailable [phone] Allergies Allergen (clinical drug ingredient) Drug/Non Drug [...] Status Risk Notes Problem Acquired hallux valgus (15910516) Hallux valgus (acquired), right foot (M20.11) Active confirmed Problem Acquired hammer toe of right foot (4152322163129 105) Other hammer toe(s) (acquired), right foot (M20.41) Active confirmed Problem Acquired hammer toe of left foot (5441724146868 103) Other hammer toe(s) (acquired), left foot (M20.42) Active confirmed Plan Of Treatment Pending Test Test Name Order Date ,[id number] TENDON SHEATH/LIGAMENT 1 05/29/202018081,[id number] TENDON SHEATH/LIGAMENT 0 05/28/2021 11836,[id number] TENDON SHEATH/LIGAMENT 0 07/05/2021 71489,[id number] TENDON SHEATH/LIGAMENT 0 08/07/2023 Insurance Providers Payer Name Payer Address Payer Phone Subscriber Number Group Number Insured Name Patient Relationship to Insured Coverage Start Date Coverage End Date [facility] [address] [place] [address] [id number] Liana Mckeon Self - patient is the insured Medical (General) History Medical History History ICD Code Chicken pox chronic sinusitis Surgical History Surgery Date(Month/Year) tubal ligation 1997 [place] right 01/12/2022 elbow sx- right 06/26/23
--- OUTSIDE RECORDS SUMMARY | 2025-04-02 16:42 | XMS_ITS | Clinical Summary ---
Author Organization [facility] Prior to 09/28/[address] [place] [address] Care Team Providers Care Civil Cadd Technician Name Role Phone Cedric Suh MD Primary Care Provider [phone] Allergies No known active allergies Medications Medication [...] age to complete this topic Care Teams Civil Cadd Technician Relationship Specialty Start Date End Date Cedric Suh MD [address] [place] [address] Dr Paul [address] [place] [address] [id number] PCP - General Last Sorter 01/17/19
== END 2025-04-02 15:24 | disposition home or self-care (01) ==
LOC: HO.HOS 13:56
DX: S52.501A Unspecified fracture of the lower end of right radius, initial encounter for closed fracture (principal)
CPT/HCPCS: 29075; 99024

== ENCOUNTER → 2025-04-02 14:05 | Outpatient (BNV) | payer OTHER, SELFPAY | PROVIDERS: Visit Provider Radiology Diagnostic Radiology | DX: S52.611D Displaced fracture of right ulna styloid process, subsequent encounter for closed fracture with routine healing (principal) | CPT/HCPCS: 73110 ==

== ENCOUNTER 2025-04-09 12:59 | Outpatient (AMB) | payer OTHER, SELFPAY ==
--- OUTSIDE RECORDS SUMMARY | 2024-02-07 04:45 | XMS_ITS ---
Author Organization [facility] Address [address] [place] [address] Care Team Providers Care Physical Chemistry Professor Name Role Phone Cedric Suh MD Primary Care Provider Unavaila ble Black, Tory Unavailable [phone] Yefri Gillette [phone] Encounters Encounter Location Date Provider Diagnosis [address] [address] 02/07/2024 Yefri Gillette Plan Of Treatment No Information Progress Notes * Liana BABB LDOB: (59 yo F)Acc No.[id number]:02/07/2024 Progress Note Patient: Liana JAMESON Provider: Iam Womack DPM :1965 A ge:58 Y S ex:Female Date:02/07/2024 Address:[address] [place] [address] Pcp:Cedric Shu MD Subjective: * Chief Complaints: * * Medical History: Objective: * Vitals: Assessment: Plan: * Treatment: * Images: * The named appointment provid er may or may not be the originator of this progress note, and it is not deemed complete until electronically signed by the appointment provider. Sign off status: Pending * Provider: Iam Womack DPM Date: 1 Generated for Jorden chappell/William/Christina on: 1 06/10/2024 08:00 PM EST
--- NOTE | 2025-04-09 13:18 | A.OFFVIS_ITS ---
Vital Signs 04/09/25 13:26 Height 5 ft 6 in Weight 146 lb BMI 23.6 Intake Visit Reasons: PO RT distal radius ORIF 03/06/25 AR-w/xrays Intake Note: Liana is a 59 year old right hand dominant female who presents today for a Post- operative Visit s/p Right Distal Radius ORIF, DOS: 03/06/[address] Prado. Patient was last seen 04/02/25, due to ongoing tenderness, she was placed in a new short-arm cast for another week. Today, patient reports she continues having pain on the dorsal and radial aspects of the right wrist. Allergies adhesive tape Adverse Reaction (Verified 04/09/25 13:19) Blister HPI HPI PO RT distal radius ORIF 03/06/25 AR-w/xrays: Details: Liana is a 59 year old right hand dominant female who presents today for a Post- operative Visit s/p Right Distal Radius ORIF, DOS: 03/06/[address] Prado. Patient was last seen 04/02/25, due to ongoing tenderness, she was placed in a new short-arm cast for another week. Today, patient reports she continues having some pain on the dorsal and radial aspects of the right wrist, but reports that this is skin level and in the area of skin irritation noted on previous examinations. Patient does report that she is feeling much better this week than she was at previous evaluation last week. 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 Physical Exam Vital Signs: BMI result Body Mass Index 23.6 Const General: cooperative, healthy appearing and no acute distress Orientation/consciousness: patient oriented x3 HEENT Head: Yes normocephalic and Yes atraumatic Eyes EOM: EOMs intact bilaterally Resp Effort & Inspection: normal respiratory effort and able to speak in complete sentences Cardio Jugular venous distension: no JVD Skin General skin exam: turgor normal Rashes: no rashes Neuro General: patient oriented x3 Extrem Other: Evaluation of Right Upper Extremity: The patient is alert, oriented, and in no acute distress Removed from short-arm cast prior to x-rays Neuro: sensation is normal to the tips of all digits Vascular: Cap refill brisk ROM: Patient is able to flex and extend the digits of the right hand, is able to almost make a full closed fist Skin: Well approximated and well healing incision site noted over the volar right wrist Pain: There is no further tenderness to palpation about the right distal radius No pain with range of motion of the right hand Psych Appearance: grossly normal Affect: normal affect Attitude: cooperative Results Reviewed Results Reviewed: X-rays obtained in the office today and independently reviewed by me, Sebastián Louis PA-C, demonstrate status post ORIF of right distal radius with good evidence of interval bony healing. Assessment & Plan Assessment & Plan (1) Closed fracture of right distal radius: Code(s): S52.501A - Unspecified fracture of the lower end of right radius, initial encounter for closed fracture Category: Medical Plan 1. Status post right distal radius ORIF DOS 03/06/2025 Patient appears to be recovering well postoperatively Patient is educated about the typical recovery course At this time, no further casting is needed, and patient is provided with a Velcro wrist splint to be worn with daytime activities Patient should remove while at rest to work on gentle range of motion of the right hand and wrist Due to significant stiffness that has developed, I feel that it is best refer the patient to occupational therapy for range of motion and some gentle strengthening of the right wrist 2 lb weight limit until follow-up Patient understands this and is amenable to this plan Follow-up in 4 weeks with repeat x-rays for reassessment, sooner with any acute concerns Orders: Orders XR wrist RT min 3V Today M25.531 - Pain in right wrist OT Evaluation and Treatment Today S52.501A - Unspecified fracture of the lower end of right radius, initial encounter for closed fracture Coding Level of Care Code Global (80418) Diagnoses Closed fracture of right distal radius S52.501A
[2025-04-09 13:26] VITALS: BMI 23.6
--- OUTSIDE RECORDS SUMMARY | 2025-04-09 20:00 | XMS_ITS | Clinical Summary ---
Author Organization [facility] Prior to 09/28/[address] [place] [address] Care Team Providers Care Food Order Delivery Runner Name Role Phone Cedric Suh MD Primary Care Provider [phone] Allergies No known active allergies Medications Medication [...] age to complete this topic Care Teams Food Order Delivery Runner Relationship Specialty Start Date End Date Cedric Suh MD [address] [place] [address] Dr [address] [place] [address] [phone] PCP - General Window Shade Cloth Sewer 01/17/19
--- OUTSIDE RECORDS SUMMARY | 2025-04-09 20:01 | XMS_ITS | Patient Health Record ---
Author [facility] Address [address] [place] [address] Care Team Providers Care Sign Painter Name Role Phone Cedric Suh MD Primary Care Provider Unavaila ble Black, Tory Unavailable [phone] Allergies Allergen (clinical drug ingredient) Drug/Non Drug [...] Status Risk Notes Problem Acquired hallux valgus (12166206) Hallux valgus (acquired), right foot (M20.11) Active confirmed Problem Acquired hammer toe of right foot (1640666988023 105) Other hammer toe(s) (acquired), right foot (M20.41) Active confirmed Problem Acquired hammer toe of left foot (1162408547304 103) Other hammer toe(s) (acquired), left foot (M20.42) Active confirmed Plan Of Treatment Pending Test Test Name Order Date ,[id number] TENDON SHEATH/LIGAMENT 1 05/29/202058266,[id number] TENDON SHEATH/LIGAMENT 0 05/28/2021 74439,[id number] TENDON SHEATH/LIGAMENT 0 07/05/2021 90669,[id number] TENDON SHEATH/LIGAMENT 0 08/07/2023 Insurance Providers Payer Name Payer Address Payer Phone Subscriber Number Group Number Insured Name Patient Relationship to Insured Coverage Start Date Coverage End Date [facility] [address] [place] [address] [id number] Liana Mckeon Self - patient is the insured Medical (General) History Medical History History ICD Code Chicken pox chronic sinusitis Surgical History Surgery Date(Month/Year) tubal ligation 1997 [place] right 01/12/2022 elbow sx- right 06/26/23
--- OUTSIDE RECORDS SUMMARY | 2025-04-09 20:01 | XMS_ITS | Patient Health Record ---
Author Organization [facility] Address [address] [place] [address] Care Team Providers Care Stitching Department Supervisor Name Role Phone Patience Jaramillo M.D. Primary Care Provider Unavail able Ponce Fox [phone] Allergies Allergen (clinical drug ingredient) Drug/Non Drug [...] W/U Status Risk Notes Problem Epigastric pain (95372456) Epigastric pain (R10.13) Active confirmed Problem Screening for malignant neoplasm of colon (998409127) Encounter for screening for malignant neoplasm of colon (Z12.11) Active confirmed Problem Chest pain (62217044) Other chest pain (R07.89) Active confirmed Problem Gastroesophageal reflux disease without esophagitis (890625656) Gastroesophageal reflux disease without esophagitis (K21.9) Active confirmed Problem Gastroesophageal reflux disease (242574107) GERD (gastroesophageal reflux disease) (K21.9) Active confirmed Problem Gastroesophageal reflux disease (614352415) Esophageal reflux disease (K21.9) Active confirmed Plan Of Treatment Pending Test Test Name Order Date US abdomen complete 12/20/2022 Future Test Test Name Order Date COLONOSCOPY 09/02/2014 UPPER GI ENDOSCOPY 10/14/2021 Next Appt Details Provider Name:Ponce Ragland Ruddy , 04/15/2025 09:50:00 AM, [address], [address], [place], [address], Insurance Providers Payer Name Payer Address Payer Phone Subscriber Number Group Number Insured Name Patient Relationship to Insured Coverage Start Date Coverage End Date [facility] [address] [place] [phone] [id number] SASKIA BOLAND Self - patient is the insured Medical (General) History Medical History History ICD Code Denies [place],DM,CVA,Lung disease,renal dise ase Depression Negative screening colonoscopy in 09/2014 Transient cardiomyopathy in the GERD-EGD 10/2021 with a small hiatal hernia but otherwise normal with biopsies negative for Ko's esophagus Surgical History Surgery Date(Month/Year) Tubal ligation 1998 right outer elbow
== END 2025-04-09 13:41 | disposition home or self-care (01) ==
LOC: HO.HOS 12:59
DX: S52.501A Unspecified fracture of the lower end of right radius, initial encounter for closed fracture (principal)
CPT/HCPCS: 99024

== ENCOUNTER → 2025-04-09 13:03 | Outpatient (BNV) | payer OTHER, SELFPAY | PROVIDERS: Visit Provider Radiology Diagnostic Radiology | DX: M25.531 Pain in right wrist (principal) | CPT/HCPCS: 73110 ==

== ENCOUNTER 2025-04-09 14:25 | Outpatient (REF) | payer OTHER, SELFPAY ==
--- OUTSIDE RECORDS SUMMARY | 2024-02-07 04:45 | XMS_ITS ---
Author Organization [facility] Address [address] [place] [address] Care Team Providers Care Credit Cashier Name Role Phone Cedric Suh MD Primary Care Provider Unavaila ble Black, Tory Unavailable [phone] Yefri Gillette [phone] Encounters Encounter Location Date Provider Diagnosis [address] [address] 02/07/2024 Yefri Gillette Plan Of Treatment No Information Progress Notes * Liana BABB LDOB: (59 yo F)Acc No.[id number]:02/07/2024 Progress Note Patient: Liana JAMESON Provider: Iam Womack DPM :1965 A ge:58 Y S ex:Female Date:02/07/2024 Address:[address] [place] [address] Pcp:Cedric Suh MD Subjective: * Chief Complaints: [...] 1 Generated for Jorden chappell/William/Christina on: 1 06/11/2024 10:04 PM EST
--- NOTE | ~2025-04-09 | XR_ITS ---
EXAMINATION: XR WRIST 3 OR MORE VIEWS RIGHT HISTORY: M25.531 - Pain in right wrist COMPARISON: Comparison is made with the prior examination dated 04/02/2025. FINDINGS: Three views of the right wrist are submitted. Osseous mineralization is normal. Again seen is internal fixation of a fracture of the distal radial metaphysis with a sideplate and multiple orthopedic screws. No evidence of hardware loosening. The fracture line is less well visualized than on the prior study, consistent with. A fracture of the ulnar styloid is again noted. The joint spaces are preserved. The soft tissues are unremarkable. XR/XR wrist RT min 3V IMPRESSION: Healing internally fixed fracture of the distal radial metaphysis with an associated ulnar styloid fracture. Electronically signed by: Ponce Contreras MD 04/09/2025 01:37 PM PRINCE
--- OUTSIDE RECORDS SUMMARY | 2025-04-10 22:04 | XMS_ITS | Clinical Summary ---
Author Organization [facility] Prior to 09/28/[address] [place] [address] Care Team Providers Care Financial Accounting Manager Name Role Phone Cedric Suh MD Primary Care Provider [phone] Allergies No known active allergies Medications Medication [...] age to complete this topic Care Teams Financial Accounting Manager Relationship Specialty Start Date End Date Cedric Suh MD [address] [place] [address] Dr Paul [address] [place] [address] [phone] PCP - General Recycling Program Manager 01/17/19
--- OUTSIDE RECORDS SUMMARY | 2025-04-10 22:05 | XMS_ITS | Patient Health Record ---
Author Organization [facility] Address [address] [place] [address] Care Team Providers Care Wood Room Hand Name Role Phone Patience Jaramillo M.D. Primary Care Provider Unavail able Ponce Fox [phone] Allergies Allergen (clinical drug ingredient) Drug/Non Drug [...] Problem Status W/U Status Risk Notes Problem Information temporarily unavailable Epigastric pain (R10.13) Active confirmed Problem Information temporarily unavailable Encounter for screening for malignant neoplasm of colon (Z12.11) Active confirmed Problem Information temporarily unavailable Other chest pain (R07.89) Active confirmed Problem Information temporarily unavailable Gastroesophageal reflux disease without esophagitis (K21.9) Active confirmed Problem Information temporarily unavailable GERD (gastroesophageal reflux disease) (K21.9) Active confirmed Problem Information temporarily unavailable Esophageal reflux disease (K21.9) Active confirmed Plan Of Treatment Pending Test Test Name Order Date US abdomen complete 12/20/2022 Future Test Test Name Order Date COLONOSCOPY 09/02/2014 UPPER GI ENDOSCOPY 10/14/2021 Next Appt Details Provider Name:Ponce Fox , 04/15/2025 09:50:00 AM, [address], [place], [address], Insurance Providers Payer Name Payer Address Payer Phone Subscriber Number Group Number Insured Name Patient Relationship to Insured Coverage Start Date Coverage End Date [facility] [address] [place] [phone] [id number] SASKIA BOLAND Self - patient is the insured Medical (General) History Medical History History ICD Code Denies MO,DM,CVA,Lung disease,renal dise ase Depression Negative screening colonoscopy in 09/2014 Transient cardiomyopathy in the GERD-EGD 10/2021 with a small hiatal hernia but otherwise normal with biopsies negative for Ko's esophagus Surgical History Surgery Date(Month/Year) Tubal ligation 1998 right outer elbow
--- OUTSIDE RECORDS SUMMARY | 2025-04-10 22:05 | XMS_ITS | Patient Health Record ---
Author [facility] Address [address] [place] [address] Care Team Providers Care Rental Clerk Tool And Equipment Name Role Phone Cedric Suh MD Primary Care Provider Unavaila ble Black, Tory Unavailable [phone] Allergies Allergen (clinical drug ingredient) Drug/Non Drug [...] Status Risk Notes Problem Acquired hallux valgus (81852664) Hallux valgus (acquired), right foot (M20.11) Active confirmed Problem Acquired hammer toe of right foot (8910826659993 105) Other hammer toe(s) (acquired), right foot (M20.41) Active confirmed Problem Acquired hammer toe of left foot (6554618931791 103) Other hammer toe(s) (acquired), left foot (M20.42) Active confirmed Plan Of Treatment Pending Test Test Name Order Date ,[id number] TENDON SHEATH/LIGAMENT 1 05/29/202005285,[id number] TENDON SHEATH/LIGAMENT 0 05/28/2021 [id number] TENDON SHEATH/LIGAMENT 0 07/05/2021 [id number] TENDON SHEATH/LIGAMENT 0 08/07/2023 Insurance Providers Payer Name Payer Address Payer Phone Subscriber Number Group Number Insured Name Patient Relationship to Insured Coverage Start Date Coverage End Date [facility] [address] [place] [id number] Liana Mckeon Self - patient is the insured Medical (General) History Medical History History ICD Code Chicken pox chronic sinusitis Surgical History Surgery Date(Month/Year) tubal ligation 1997 [place] right 01/12/2022 elbow sx- right 06/26/23
== END 2025-04-09 14:26 | disposition home or self-care (01) ==
LOC: HO.HOSX 14:25
DX: S52.501D Unspecified fracture of the lower end of right radius, subsequent encounter for closed fracture with routine healing (principal); X58.XXXD Exposure to other specified factors, subsequent encounter
CPT/HCPCS: 73110

== ENCOUNTER 2025-04-15 10:43 | Outpatient (REF) | payer OTHER, SELFPAY ==
[2025-04-15 13:53] LABS: MANUAL DIFF FLAG NO
[2025-04-15 14:28] LABS: Hematocrit 43.6 % (37.0-47.0); Hemoglobin 14.1 g/dl (12.0-16.0); Imm Gran Abs Auto 0.01 X10*3/uL (0.00-0.03); Imm Gran Pct Auto 0.2 % (0.0-0.4); Lymphocytes Absolute Auto 1.2 X10*3/uL (1.2-4.9); Mean Corpuscular HGB Conc 32.3 g/dl (31.0-35.0); Mean Corpuscular Hemoglobin 30.2 pg (27.0-33.0); Mean Corpuscular Volume 93.4 fL (80.0-98.0); NRBC Abs Auto 0.000 X10*3/uL (0.0-0.012); NRBC Pct Auto 0.0 /100WBC (0.0-0.2); Platelet Count 294 X10*3/uL (160-400); Red Blood Count 4.67 X10*6/uL (4.20-5.50); White Blood Count 5.9 X10*3/uL (4.8-10.8)
[2025-04-15 15:26] LABS: Alanine Aminotransferase 38 U/L (0-31); Albumin Level 4.6 g/dL (3.5-5.0); Alkaline Phosphatase 77 U/L (39-117); Anion Gap 12 (12-20); Aspartate Amino Transferase 31 U/L (5-31); Blood Urea Nitrogen 10 mg/dL (9-16); Calcium 9.9 mg/dL (8.4-10.2); Carbon Dioxide 26 mmol/L (22-29); Chloride 105 mmol/L (96-108); Estimated Glomerular Filt Rate > 60; Potassium 4.1 mmol/L (3.3-5.1); Sodium 139 mmol/L (135-145); Total Protein 7.6 g/dL (6.5-8.0)
== END 2025-04-15 10:44 | disposition home or self-care (01) ==
LOC: HO.10HDL 10:43
PROVIDERS: Visit Provider Internal Medicine
DX: R19.7 Diarrhea, unspecified (principal)
CPT/HCPCS: 36415; 80048; 80076; 85025

== ENCOUNTER 2025-04-16 10:05 | Outpatient (REF) | payer OTHER, SELFPAY ==
--- OUTSIDE RECORDS SUMMARY | 2024-02-07 04:45 | XMS_ITS ---
Author Organization [facility] Address [address] [place] [address] Care Team Providers Care Contact Finger Assembler Name Role Phone Cedric Suh MD Primary Care Provider Unavaila ble Black, Tory Unavailable [phone] Yefri Gillette [phone] Encounters Encounter Location Date Provider Diagnosis [address] [address] 02/07/2024 Yefri Gillette Plan Of Treatment No Information Progress Notes * Liana BABB LDOB: (59 yo F)Acc No.[id number]:02/07/2024 Progress Note Patient: Liana JAMESON Provider: Iam Womack DPM :1965 A ge:58 Y S ex:Female Date:02/07/2024 Address:[address] [place] [address] Pcp:Cedric Suh MD Subjective: * Chief Complaints: [...] 1 Generated for Jorden chappell/William/Christina on: 1 06/17/2024 12:20 PM EST
--- OUTSIDE RECORDS SUMMARY | 2025-04-15 04:50 | XMS_ITS ---
Author Organization [facility] Address [address] [place] [address] Care Team Providers Care Search Engine Optimization Consultant Name Role Phone Patience Jaramillo M.D. Primary Care Provider Unavail able Ponce Fox [phone] Allergies Allergen (clinical drug ingredient) Drug/Non Drug Allergy documented on EMR Reaction Allergy Type Onset Date Status seasonal (uncoded) Unknown Allergy A ctive REASON FOR VISIT Patient presents today for colon screening Medications Medication SIG (Take, Route, Frequency, Duration) Notes Start Date End Date Status Allergy 24-HR Active Citalopram Hydrobromide 20 MG Tablet 1 tablet Orally Once a day Active Omeprazole 20 MG Capsule Delayed Release TAKE 1 CAPSULE BY MOUTH EVERY DAY Oral; Duration: 90 As needed Active Fiber Active Vitamin D Active Social History Social History Drugs/Alcohol: Social Info [...] Never (0 point) Points 4 Interpretation Positive Drug/Alcohol: Social Info Question Answer Notes AUDIT-C (Standard) Did you have a drink containing alcohol in the past year? Yes How often did you have a drink containing alcohol in the past year? 2 to 4 times a month (2 points) How many drinks did you have on a typical day when you were drinking in the past year? 3 or 4 drinks (1 point) How often did you have six or more drinks on one occasion in the past year? 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; drinks 2-3 drinks 5x/week Problems Problem Type SNOMED Code ICD Code Onset Dates Problem Status W/U Status Risk Notes Problem Diarrhea (53000193) Diarrhea, unspecified (R19.7) Active confirmed Vital Signs Blood pressure systolic 001 mm Hg 04/15/20 25 Blood pressure diastolic 01 mm Hg 025 Height 65.5 in 04/15/2025 Weight 146.2 lbs 04/15/2025 BMI 23.96 kg/m2 04/15/2025 Encounters Encounter Location Date Provider Diagnosis [facility] [address] [place] [address] 04/15/2025 Ponce Fox Diarrhea, unspecifie d R19.7 ; Encounter for screening for malignant neoplasm of colon Z12.11 and Esophageal reflux disease K21.9 Assessments Encounter Date Diagnosis (ICD Code) Assessment Notes Treatment Notes Treatment Clinical Notes Section Notes 04/15/2025 Diarrhea, unspecified (ICD-10 - R19.7) Use Imodium as needed for the diarrhea Overall, Saskia appears well. In regard to her diarrhea this seems to be related to the time of her surgery last month, as well as the description of a superimposed flu . I advised her that the diarrhea may be in relation to all of that, including the constipation from the pain medication and then subsequent need for laxatives. I do not think this represents any significant pathology such as colitis or any other problems. I shall check some stool specimens and lab work as described below. In the meantime I did advise her to try to eat normally and use some Imodium as needed. Hopefully this will correct itself within a couple of weeks. I did advise her to certainly let me know if it does not, or if it worsens and becomes associate with any other problems such as bleeding, and then we could always move her screening colonoscopy to a sooner date. I did recommend a colonoscopy for screening as it has been over 10 years since her last exam. We did review the rationale for that in regard to colon cancer prevention. Full consent has been obtained for this, including risks of bleeding and perforation. The procedure will be done with monitored anesthesia care. Saskia was comfortable with this plan. Thank you again for allowing me to participate in Saskia's care. I shall continue to keep you advised of her progress. 04/15/2025 Encounter for screening for malignant neoplasm of colon (ICD-10 - Z12.11) Overall, Saskia appears well. In regard to her diarrhea this seems to be related to the time of her surgery last month, as well as the description of a superimposed flu . I advised her that the diarrhea may be in relation to all of that, including the constipation from the pain medication and then subsequent need for laxatives. I do not think this represents any significant pathology such as colitis or any other problems. I shall check some stool specimens and lab work as described below. In the meantime I did advise her to try to eat normally and use some Imodium as needed. Hopefully this will correct itself within a couple of weeks. I did advise her to certainly let me know if it does not, or if it worsens and becomes associate with any other problems such as bleeding, and then we could always move her screening colonoscopy to a sooner date. I did recommend a colonoscopy for screening as it has been over 10 years since her last exam. We did review the rationale for that in regard to colon cancer prevention. Full consent has been obtained for this, including risks of bleeding and perforation. The procedure will be done with monitored anesthesia care. Saskia was comfortable with this plan. Thank you again for allowing me to participate in Saskia's care. I shall continue to keep you advised of her progress. 04/15/2025 Esophageal reflux disease (ICD-10 - K21.9) Overall, Saskia appears well. In regard to her diarrhea this seems to be related to the time of her surgery last month, as well as the description of a superimposed flu . I advised her that the diarrhea may be in relation to all of that, including the constipation from the pain medication and then subsequent need for laxatives. I do not think this represents any significant pathology such as colitis or any other problems. I shall check some stool specimens and lab work as described below. In the meantime I did advise her to try to eat normally and use some Imodium as needed. Hopefully this will correct itself within a couple of weeks. I did advise her to certainly let me know if it does not, or if it worsens and becomes associate with any other problems such as bleeding, and then we could always move her screening colonoscopy to a sooner date. I did recommend a colonoscopy for screening as it has been over 10 years since her last exam. We did review the rationale for that in regard to colon cancer prevention. Full consent has been obtained for this, including risks of bleeding and perforation. The procedure will be done with monitored anesthesia care. Saskia was comfortable with this plan. Thank you again for allowing me to participate in Saskia's care. I shall continue to keep you advised of her progress. Plan Of Treatment Treatment Notes Assessment Notes Diarrhea, unspecified Use Imodium as nee ded for the diarrhea Pending Test Test Name Order Date CHEM 7 PROFILE 04/15/2025 LIVER PROFILE 04/15/2025 CBC w DIFF 04/15/2025 CDiff with Reflex to PCR 04/15/2025 Calprotectin, Fecal 04/15/2025 GI PANEL 04/15/2025 Future Test Test Name Order Date COLONOSCOPY 04/15/2025 Next Appt Details Provider Name:Ponce Fox , 05/02/2025 10:10:00 AM, [address] [place] [address] , [place], [place], [phone], History and Physical Notes * HPI (History of Present Illness) Category Sub-Category Detail Notes Category Not es incontinence I saw Saskia in the office today for evaluation of colorectal cancer screening as well as some recent diarrhea.I last saw Saskia in 2022 for evaluation of some reflux symptoms. She did have a negative screening colonoscopy in 2014. She reports that she has basically been feeling well but about a month ago broke her right wrist which required surgery. Subsequent to that she was using some pain medication which caused constipation. She then had to use some laxatives. Subsequent to that she has had almost daily episodes of loose stool upwards of 4-6 times daily. She has not noticed any hematochezia or melena. She has been eating very carefully. She denies any significant heartburn or dysphagia. She denies any nausea or vomiting. She denies any particular abdominal pain, jaundice, or fevers. She has not had any ill contacts, travel, nor any antibiotic use. She does not think she received any antibiotics with her wrist surgery when she had that for the broken wrist in March. She does not use much in the way of any dairy products or caffeine. There is no family history of colorectal cancer, inflammatory bowel disease, or celiac disease. In addition to her broken wrist and surgery for that last month she did have a flu with a lot of respiratory symptoms during that time manage still getting over that . She did not take any antibiotics for that either. Progress Notes * VIOLET PEREZOB:[birth year] (59 yo F)Acc No.[id number]:04/15/2025 Progress Notes Patient: SASKIA JAMESON Provider: Phong Fox MD :1965 A ge:59 Y S ex:Female Date:04/15/2025 Address:[address] [place], [place] [id number] Pcp:Patience Jaramillo M.D. Subjective: * Chief Complaints: * P atient presents today for colon screening * HPI: i ncontinence: I saw Saskia in the office today for evaluation of colorectal cancer screening as well as some recent diarrhea.I last saw Saskia in 2022 for evaluation of some reflux symptoms. She did have a negative screening colonoscopy in 2014. She reports that she has basically been feeling well but about a month ago broke her right wrist which required surgery. Subsequent to that she was using some pain medication which caused constipation. She then had to use some laxatives. Subsequent to that she has had almost daily episodes of loose stool upwards of 4-6 times daily. She has not noticed any hematochezia or melena. She has been eating very carefully. She denies any significant heartburn or dysphagia. She denies any nausea or vomiting. She denies any particular abdominal pain, jaundice, or fevers. She has not had any ill contacts, travel, nor any antibiotic use. She does not think she received any antibiotics with her wrist surgery when she had that for the broken wrist in March. She does not use much in the way of any dairy products or caffeine. There is no family history of colorectal cancer, inflammatory bowel disease, or celiac disease. In addition to her broken wrist and surgery for that last month she did have a flu with a lot of respiratory symptoms during that time manage still getting over that . She did not take any antibiotics for that either. * Medical History: Denies LA,DM,CVA,Lung disease,renal disease Depression Negative screening colonoscopy in 09/2014 Transient cardiomyopathy in the GERD-EGD 10/2021 with a small hiatal hernia but otherwise normal with biopsies negative for Ko's esophagus Medical History Verified * Surgical History: Tubal ligation 1998 Right elbow x 2 Broke right wrist- 03/2025 Surgical History verified. * Hospitalization/Major Diagno stic Procedure: No Hospitalization Documented. Hospitalization Verified. * Family History: F ather: , diagnosed with HTN (hypertension), Heart disease. M other: .?Family History Verified.. No family hx of colon or liver cancer. * Social History: T obacco Use: T obacco Use/Smoking A re you a: former smoker , How long has it been since you last smoked?: > 10 years. D rugs/Alcohol: A lcohol Screen D id you have a drink containing alcohol in the past year? Y es, H ow often did you have a drink containing alcohol in the past year? 4 or more times a week (4 points), H ow many drinks did you have on a typical day when you were drinking in the past year??1 or 2 drinks (0 point), H ow often did you have 6 or more drinks on one occasion in the past year? N ever (0 point), P oints 4 , I nterpretation P ositive. M iscellaneous: M arital status: . 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 D rug/Alcohol: A LILY-C (Standard) D id you have a drink containing alcohol in the past year? Y es,?How often did you have a drink containing alcohol in the past year? 2 to 4 times a month (2 points), H ow many drinks did you have on a typical day when you were drinking in the past year? 3 or 4 drinks (1 point), H ow often did you have six or more drinks on one occasion in the past year? N ever (0 point), P oints 3 , I nterpretation P ositive. Social History Verified. N onsmoker; drinks 2-3 drinks 5x/week. * Medications: T akingFiber Vitamin D Allergy 24-HR Citalopram Hydrobromide 20 MG Tablet 1 tablet Orally Once a day Omeprazole 20 MG Capsule Delayed Release TAKE 1 CAPSULE BY MOUTH EVERY DAY Oral , Notes to Pharmacist: As neededMedication List reviewed and reconciled with the patientTaking Fiber Taking Vitamin D Taking Allergy 24-HR Taking Citalopram Hydrobromide 20 MG Tablet 1 tablet Orally Once a day Taking Omeprazole 20 MG Capsule Delayed Release TAKE 1 CAPSULE BY MOUTH EVERY DAY Oral , Notes to Pharmacist: As neededMedication List reviewed and reconciled with the patient * Allergies: s easonalyesAllergies Verified. Objective: * Vitals: W t: 146.2 lbs, Ht: 65.5 in, BMI:23.96Index, BP: 001/01 mm Hg, Ht-cm: 166.37 cm, Wt-k.32 kg. Assessment: * Assessment: 1. D iarrhea, unspecified - R19.7 (Primary) 2 . E ncounter for screening for malignant neoplasm of colon - Z12.11 3 . E sophageal reflux disease - K21.9? Overall, Saskia appears well. In regard to her diarrhea this seems to be related to the time of her surgery last month, as well as the description of a superimposed flu . I advised her that the diarrhea may be in relation to all of that, including the constipation from the pain medication and then subsequent need for laxatives. I do not think this represents any significant pathology such as colitis or any other problems. I shall check some stool specimens and lab work as described below. In the meantime I did advise her to try to eat normally and use some Imodium as needed. Hopefully this will correct itself within a couple of weeks. I did advise her to certainly let me know if it does not, or if it worsens and becomes associate with any other problems such as bleeding, and then we could always move her screening colonoscopy to a sooner date. I did recommend a colonoscopy for screening as it has been over 10 years since her last exam. We did review the rationale for that in regard to colon cancer prevention. Full consent has been obtained for this, including risks of bleeding and perforation. The procedure will be done with monitored anesthesia care. Saskia was comfortable with this plan. Thank you again for allowing me to participate in Saskia's care. I shall continue to keep you advised of her progress. Plan: * Treatment: 2. E ncounter for screening for malignant neoplasm of colon P rocedure: COLONOSCOPY (Ordered for 04/15/2025) * Preventive Medicine: Counseling: B P Management: M ODERATION OF ETOH CONSUMPTION RECOMMENDATION:?Alcohol abuse prevention education. Billing Information: * Procedure Codes: * The named appointment provid er may or may not be the originator of this progress note, and it is not deemed complete until electronically signed by the appointment provider. Sign off status: Pending * Provider: Phong Fox MD Date: 06/16/2024 Generated for Jorden chappell/William/Jinnyitting on: 06/17/2024 12:20 PM EST
[2025-04-16 11:12] LABS: CDiff Gene PCR NEGATIVE (Negative)
--- OUTSIDE RECORDS SUMMARY | 2025-04-16 12:20 | XMS_ITS | Clinical Summary ---
Author Organization [facility] Prior to 09/28/[address] [place] [address] Care Team Providers Care Dry Transfer Worker Name Role Phone Cedric Suh MD Primary Care Provider [phone] Allergies No known active allergies Medications Medication [...] age to complete this topic Care Teams Dry Transfer Worker Relationship Specialty Start Date End Date Cedric Suh MD [address] [place] [address] Dr Paul [address] [place] [phone] PCP - General Work Environment Safety Inspector 01/17/19
--- OUTSIDE RECORDS SUMMARY | 2025-04-16 12:20 | XMS_ITS | Patient Health Record ---
[facility] Address [address] [place] [address] Care Team Providers Care Community Education Coordinator Name Role Phone Cedric Suh MD Primary Care Provider Unavaila ble Black, Tory Unavailable [phone] Allergies Allergen (clinical drug ingredient) Drug/Non Drug [...] Status Risk Notes Problem Acquired hallux valgus (94874223) Hallux valgus (acquired), right foot (M20.11) Active confirmed Problem Acquired hammer toe of right foot (1567296051182 105) Other hammer toe(s) (acquired), right foot (M20.41) Active confirmed Problem Acquired hammer toe of left foot (3037765438517 103) Other hammer toe(s) (acquired), left foot (M20.42) Active confirmed Plan Of Treatment Pending Test Test Name Order Date ,[id number] TENDON SHEATH/LIGAMENT 1 05/29/202083293,[id number] TENDON SHEATH/LIGAMENT 0 05/28/2021 [id number] TENDON SHEATH/LIGAMENT 0 07/05/2021 [id number] TENDON SHEATH/LIGAMENT 0 08/07/2023 Insurance Providers Payer Name Payer Address Payer Phone Subscriber Number Group Number Insured Name Patient Relationship to Insured Coverage Start Date Coverage End Date [facility] [address] [place] [id number] Liana Mckeon Self - patient is the insured Medical (General) History Medical History History ICD Code Chicken pox chronic sinusitis Surgical History Surgery Date(Month/Year) tubal ligation 1997 [place] right 01/12/2022 elbow sx- right 06/26/23
--- OUTSIDE RECORDS SUMMARY | 2025-04-16 12:20 | XMS_ITS | Patient Health Record ---
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 Primary Care Provider Ponce Zavala [phone] Allergies Allergen (clinical drug ingredient) Drug/Non Drug Allergy documented on EMR Reaction Allergy Type Onset Date Status seasonal (uncoded) Unknown Allergy A ctive Results Component Value Reference Range Flag Notes CDiff Gene PCR (Not yet revi ewed by provider) Interpretation: Performing Lab:[address] [id number] Notes/Report: CDiff Gene PCR NEGATIVE Negative If C. difficile strongly suspected despite one negative test, a second test may be sent vs. empiric treatment for C. difficile infection. Basic Metabolic Panel (Not y et reviewed by provider) Interpretation: Performing Lab:[address] [phone] Notes/Report: Sodium 139 135-145 mmol/L N Potassium 4.1 3.3-5.1 mmol/L N Chloride 105 96-108 mmol/L N Carbon Dioxide 26 22-29 mmol/L N Anion Gap 12 12-20 N Blood Urea Nitrogen 10 9-16 mg/dL N Creatinine 0.76 0.5-1.4 mg/dL N Estimated Glomerular Filt Rate > 60 Chronic Kidney Disease: Estimated GFR < 60 mL/min/1.73m2 Severe Kidney Disease: Estimated GFR < 15 mL/min/1.73m2 Glucose Random 91 60-115 mg/dL N Calcium 9.9 8.4-10.2 mg/dL N Liver Panel (Not yet reviewe d by provider) Interpretation: Performing Lab:[facility], [address] [place] [phone] Notes/Report: Bilirubin Total 0.5 0.0-1.0 mg/dL N Bilirubin Direct 0.2 0.0-0.5 mg/dL N Aspartate Amino Transferase 31 5-31 U/L N Alanine Aminotransferase 38 0-31 U/L H Total Protein 7.6 6.5-8.0 g/dL N Albumin Level 4.6 3.5-5.0 g/dL N Alkaline Phosphatase 77 39-117 U/L N Complete Blood Count Auto Di ff (Not yet reviewed by provider) Interpretation: Performing Lab:[facility], [address] [place] [phone] Notes/Report: White Blood Count 5.9 4.8-10.8 X10*3/uL N Red Blood Count 4.67 4.20-5.50 X10*6/uL N Hemoglobin 14.1 12.0-16.0 g/dl N Hematocrit 43.6 37.0-47.0 % N Mean Corpuscular Volume 93.4 80.0-98.0 fL N Mean Corpuscular Hemoglobin 30.2 27.0-33.0 pg N Mean Corpuscular HGB Conc 32.3 31.0-35.0 g/dl N Red Cell Distribution Width 12.3 11.0-16.0 % N Platelet Count 294 160-400 X10*3/uL Mean Platelet Volume 9.8 9.4-12.3 fL N Neutrophils Percent Auto 66.6 45-73 % N Imm Gran Pct Auto 0.2 0.0-0.4 % N Lymphocytes Percent Auto 20.8 20-40 % N Monocytes Percent Auto 10.8 2-11 % N Eosinophils Percent Auto 0.8 0-4 % N Basophils Percent Auto 0.8 0-2 % N NRBC Pct Auto 0.0 0.0-0.2 /100WBC N Neutrophils Absolute Auto 3.9 2.0-8.3 x10*3/uL N Imm Gran Abs Auto 0.01 0.00-0.03 X10*3/uL N Lymphocytes Absolute Auto 1.2 1.2-4.9 X10*3/uL N Monocytes Absolute Auto 0.6 0.1-1.2 X10*3/uL N Eosinophils Absolute Auto 0.1 0.0-0.4 X10*3/uL N Basophils Absolute Auto 0.1 0.0-0.2 X10*3/uL N NRBC Abs Auto 0.000 0.0-0.012 X10*3/uL N Reason For Referral No Information Medications Medication SIG (Take, Route, Frequency, Duration) Notes Start Date End Date Status Allergy 24-HR Active Citalopram Hydrobromide 20 MG Tablet 1 tablet Orally Once a day Active Omeprazole 20 MG Capsule Delayed Release TAKE 1 CAPSULE BY MOUTH EVERY DAY Oral; Duration: 90 As needed Active Fiber Active Vitamin D Active Immunizations Vaccine Route Administration Date Status Comme nts Influenza Unknown 12/30/2020 Administered Influenza Unknown 04/15/2024 Administered Social History Social History Drug/Alcohol: Social Info Question Answer Notes AUDIT-C [...] W/U Status Risk Notes Problem Epigastric pain (45040629) Epigastric pain (R10.13) Active confirmed Problem Screening for malignant neoplasm of colon (443861050) Encounter for screening for malignant neoplasm of colon (Z12.11) Active confirmed Problem Chest pain (30913878) Other chest pain (R07.89) Active confirmed Problem Diarrhea (88709337) Diarrhea, unspecified (R19.7) Active confirmed Problem Gastroesophageal reflux disease without esophagitis (041510319) Gastroesophageal reflux disease without esophagitis (K21.9) Active confirmed Problem Gastroesophageal reflux disease (377044232) GERD (gastroesophageal reflux disease) (K21.9) Active confirmed Problem Gastroesophageal reflux disease (707674957) Esophageal reflux disease (K21.9) Active confirmed Vital Signs Blood pressure diastolic 01 mm Hg 04/15/2025 Height 65.5 in 04/15/2025 Blood pressure systolic 001 mm Hg 04/15/2025 Weight 146.2 lbs 04/15/2025 BMI 23.96 kg/m2 04/15/2025 Encounters Encounter Location Date Provider Diagnosis [facility] [address] [place] [address] 04/15/2025 Ponce Ruddy Diarrhea, unspecifie d R19.7 ; Encounter for screening for malignant neoplasm of colon Z12.11 and Esophageal reflux disease K21.9 [facility] [address] [place] [address] 04/16/2025 Ponce Fox Assessments Encounter Date Diagnosis (ICD Code) Assessment Notes Treatment Notes Treatment Clinical Notes Section Notes 04/15/2025 Encounter for screening for malignant neoplasm [...] keep you advised of her progress. 04/15/2025 Diarrhea, unspecified (ICD-10 - R19.7) Use [...] advised of her progress. Plan Of Treatment Pending Test Test Name Order Date CHEM 7 PROFILE 04/15/2025 LIVER PROFILE 04/15/2025 CBC w DIFF 04/15/2025 Complete Blood Count Auto Diff Liver Panel 04/15/2025 Basic Metabolic Panel 04/15/2025 CDiff with Reflex to PCR 04/15/2025 Calprotectin, Fecal 04/15/2025 US abdomen complete 12/20/2022 CDiff Gene PCR 04/16/2025 GI PANEL 04/15/2025 Future Test Test Name Order Date COLONOSCOPY 09/02/2014 UPPER GI ENDOSCOPY 10/14/2021 COLONOSCOPY 04/15/2025 Next Appt Details Provider Name:Ponce Fox , 05/02/2025 10:10:00 AM, [address] [facility] , [place], [place], [id number], Insurance Providers Payer Name Payer Address Payer Phone Subscriber Number Group Number Insured Name Patient Relationship to Insured Coverage Start Date Coverage End Date [facility] [address] [place] [phone] [id number] KACIESASKIA OLIVAREZ Self - patient is the insured Medical (General) History Medical History History ICD Code Denies LA,DM,CVA,Lung disease,renal dise ase Depression Negative screening colonoscopy in 09/2014 Transient cardiomyopathy in the GERD-EGD 10/2021 with a small hiatal hernia but otherwise normal with biopsies negative for Ko's esophagus Surgical History Surgery Date(Month/Year) Tubal ligation 1998 Right elbow x 2 Broke right wrist- 03/2025
== END 2025-04-16 10:06 ==
LOC: HO.LNP 10:05
PROVIDERS: Visit Provider Internal Medicine
DX: R19.7 Diarrhea, unspecified (principal)
CPT/HCPCS: 83993; 87493